=== PATIENT | male | born 1935 | race Caucasian/White ===

== ENCOUNTER 2020-11-02 09:24 | Emergency (ER) | payer MEDICARE, OTHER ==
[2020-11-02 09:53] LABS: BASOPHILS % (AUTO) 0.6 %; EOSINOPHILS # (AUTO) 0.1 10^3/uL (0.0-0.7); HCT - HEMATOCRIT 40.1 % (42.0-52.0); HGB - HEMOGLOBIN 13.2 g/dL (14.0-18.0); LYMPHOCYTES % (AUTO) 14.2 %; MEAN CORPUSCULAR HEMOGLOBIN 30.3 pg (27.0-31.0); MEAN CORPUSCULAR HGB CONC 32.9 g/dL (32.0-36.0); MEAN CORPUSCULAR VOLUME 92.2 fL (80.0-94.0); MEAN PLATELET VOLUME 10.2 fL (7.4-11.4); MONOCYTES # (AUTO) 0.6 10^3/uL (0.0-1.0); MONOCYTES % (AUTO) 9.5 %; NEUTROPHILS % (AUTO) 74.4 %; PLT - PLATELET COUNT 419 10^3/uL (130-450); RED BLOOD COUNT 4.35 10^6/uL (4.70-6.10); RED CELL DISTRIBUTION WIDTH 11.7 % (12.0-15.0); WHITE BLOOD COUNT 6.8 x10^3/uL (4.8-10.8)
--- NOTE | 2020-11-02 10:05 | XRAY Report ---
PROCEDURE: Chest 1 View X-Ray INDICATIONS: Chest pain TECHNIQUE: One view of the chest was acquired. COMPARISON: None FINDINGS: Surgical changes and devices: None. Lungs and pleura: No pleural effusions or pneumothorax. Lungs are clear. Mediastinum: Mediastinal contours appear normal. Heart size is normal. Bones and chest wall: No suspicious bony lesions. Overlying soft tissues appear unremarkable. IMPRESSION: No acute disease Reviewed by: Yomi Chadwick MD on 11/02/2020 10:04 AM PDT Approved by: Yomi Chadwick MD on 11/02/2020 10:04 AM PDT Station ID: [id number]
[2020-11-02 10:09] LABS: ALBUMIN 3.2 g/dL (3.2-5.5); ALBUMIN/GLOBULIN RATIO 0.8 (1.0-2.2); BILIRUBIN,TOTAL 0.5 mg/dL (0.2-1.0); CALCIUM 9.2 mg/dL (8.5-10.3); CREATININE 0.8 mg/dL (0.6-1.2); POTASSIUM 4.2 mmol/L (3.5-5.0); TOTAL PROTEIN 7.2 g/dL (6.7-8.2)
--- NOTE | 2020-11-02 10:31 | ED Physician Documentation ---
PD HPI NVD - Stated complaint Stated Complaint: SOA - Chief complaint Chief Complaint: Resp - History obtained from History obtained from: Patient - History of Present Illness Timing - onset: How many weeks ago (2-3) Timing - duration: Weeks (2-3) Timing - details: Gradual onset, Still present Associated symptoms: Loss of appetite. No: Fever, Abdominal pain, Dysuria, Hematuria Contributing factors: No: Sick contact, Bad food, Travel, Recent antibiotics Similar symptoms before: Has not had sx before Recently seen: Not recently seen Review of Systems Constitutional: reports: Fatigue. denies: Fever, Chills, Myalgias Nose: denies: Rhinorrhea / runny nose, Congestion Throat: denies: Sore throat Cardiac: denies: Chest pain / pressure, Palpitations, Pedal edema, Calf pain Respiratory: reports: Dyspnea (with activity, now with just little exertion.). denies: Cough, Wheezing GI: reports: Nausea (with decreased appetite). denies: Abdominal Pain, Vomiting, Diarrhea Skin: denies: Rash, Lesions Neurologic: denies: Headache, Head injury PD PAST MEDICAL HISTORY - Past Medical History Cardiovascular: None Respiratory: None Endocrine/Autoimmune: None GI: None : Benign prostate hypertrophy HEENT: None Psych: None Musculoskeletal: None Derm: None - Past Surgical History HEENT: Other - Present Medications Home Medications: Ambulatory Orders Medication Instructions Recorded Confirmed Albuterol Sulf [Ventolin Hfa 2 puffs INH QID 10 Days #1 inhaler 11/02/20 Inhaler] Cetirizine [ZyrTEC] 10 mg PO DAILY #15 tablet 11/02/20 Doxazosin Mesylate [Cardura Xl] 1 tab DAILY 11/02/20 11/02/20 dexAMETHasone [Decadron] 4 mg PO DAILY #7 tablet 11/02/20 - Allergies Allergies/Adverse Reactions: Allergies Allergy/AdvReac Type Severity Reaction Status Date / Time No Known Drug Allergies Allergy Verified 11/02/20 09:32 PD ED PE NORMAL - Vitals Vital signs reviewed: Yes - General General: Alert and oriented X 3, Well developed/nourished - HEENT HEENT: Moist mucous membranes, Pharynx benign - Neck Neck: Supple, no meningeal sign, No adenopathy - Cardiac Cardiac: RRR, No murmur - Respiratory Respiratory: No respiratory distress, Clear bilaterally - Abdomen Abdomen: Normal bowel sounds, Soft, Non distended, No organomegaly, Other (minimal tenderness RUQ without guarding. ) - Male Male : Deferred - Rectal Rectal: Deferred - Back Back: No CVA TTP - Derm Derm: Normal color, Warm and dry - Extremities Extremities: No tenderness to palpate, Normal ROM s pain, No edema, No calf tenderness / cord - Neuro Neuro: Alert and oriented X 3, No motor deficit, Normal speech Results - Vitals Vitals: Oxygen O2 Source Room air - Labs Labs: Laboratory Tests 11/02/20 11/02/20 11/02/20 09:45 09:45 09:45 WBC 6.8 RBC 4.35 L Hgb 13.2 L Hct 40.1 L MCV 92.2 MCH 30.3 MCHC 32.9 RDW 11.7 L Plt Count 419 MPV 10.2 Neut # (Auto) 5.0 Lymph # (Auto) 1.0 L [place] # (Auto) 0.6 Eos # (Auto) 0.1 Baso # (Auto) 0.0 Absolute Nucleated RBC 0.00 Nucleated RBC % 0.0 Sodium 140 Potassium 4.2 Chloride 103 Carbon Dioxide 29 Anion Gap 8.0 BUN 15 Creatinine 0.8 Estimated GFR (MDRD) 93 Glucose 151 H Calcium 9.2 Total Bilirubin 0.5 AST 21 ALT 26 Alkaline Phosphatase 130 H Troponin I High Sens 4.3 B-Natriuretic Peptide Total Protein 7.2 Albumin 3.2 Globulin 4.0 Albumin/Globulin Ratio 0.8 L Lipase 18 L TSH 11/02/20 11/02/20 09:45 09:45 WBC RBC Hgb Hct MCV MCH MCHC RDW Plt Count MPV Neut # (Auto) Lymph # (Auto) [place] # (Auto) Eos # (Auto) Baso # (Auto) Absolute Nucleated RBC Nucleated RBC % Sodium Potassium Chloride Carbon Dioxide Anion Gap BUN Creatinine Estimated GFR (MDRD) Glucose Calcium Total Bilirubin AST ALT Alkaline Phosphatase Troponin I High Sens B-Natriuretic Peptide 39 Total Protein Albumin Globulin Albumin/Globulin Ratio Lipase TSH 1.74 - Rads (name of study) chest xray Radiology: Prelim report reviewed (no acute process), See rad report chest CT Radiology: Prelim report reviewed (lungs are clear. gallstones noted. recommend URQ U/S), See rad report RUQ U/S Radiology: Prelim report reviewed (gallstones with surrounding mild fluid. Wall not thickened. ), See rad report PD MEDICAL DECISION MAKING - ED course Complexity details: reviewed results (CXR clear but given his SUE and weight loss, consider chest CT for concern of more occult process. CT chest is okay though for lungs, but shows GB stones and fluid. ), considered differential (his nausea, decreased appetite, weight loss could be attributed to the gallstones and gallbladder inflammation. Not sure to connect the SUE to that though. F/U PMD for further eval. Consider ECHO perhaps. More likely is reactive ariways, so will try inhaler and steroids. ), d/w patient Departure - Departure Disposition: 01 Home, Self Care Clinical Impression: Dyspnea on exertion, Loss of appetite, Weight loss, Gallstones Condition: Stable Record reviewed to determine appropriate education?: Yes Instructions: Gallstones Dc, ED Reactive Airway Disease Follow-Up: Jeremias Barrientos MD [Primary Care Provider] - Danica Cano MD [Provider Admit Priv/Credential] - Prescriptions: dexAMETHasone [Decadron] 4 mg PO DAILY #7 tablet Albuterol Sulf [Ventolin Hfa Inhaler] 2 puffs INH QID 10 Days #1 inhaler Cetirizine [ZyrTEC] 10 mg PO DAILY #15 tablet Comments: Stay well-hydrated. Nonfatty foods to decrease gallbladder stimulation. Your CT and ultrasound do show some gallstones with minimal gallbladder wall thickening suggesting some inflammation of it. It does not seem acutely "hot" or infected. This may be given you some of the decreased appetite and weight loss symptoms you have had. However it would not really explain the shortness of breath with activity. Your EKG and blood tests and CT of the chest did not show any acute heart or lung problems obvious. I presume you may be having some bronchial inflammation related to allergies we will try an inhaler as well as a steroid anti-inflammatory and some allergy medicine and see how your breathing does over the next several days to week. Follow-up with Dr. Portillo your primary care, call for an appointment. Also follow-up with general surgery regarding further discussion about the gallbladder. Return if worsening symptoms overall. Transmitted to your prescription medicines to [facility] pharmacy. Discharge Date/Time: 11/02/20 14:20
[2020-11-02] MEDS ORDERED: ALBUTEROL NEB 2.5 MG/3 ML INH STA (10:51)
[2020-11-02] MEDS ORDERED: IOPAMIDOL-300 100 ML VIAL ONE (11:18)
--- NOTE | 2020-11-02 12:15 | CT Report ---
PROCEDURE: CHEST W INDICATIONS: SUE for 6 weeks CONTRAST: IV CONTRAST: Isovue 300 ml: 100 PO CONTRAST: *NO PO CONTRAST TECHNIQUE: After the administration of intravenous contrast, 5 mm thick sections acquired from the pulmonary api kaylan to the posterior costophrenic angles. 7 mm thick coronal MIP reformats were acquired. For radia tion dose reduction, the following was used: automated exposure control, adjustment of mA and/or kV according to patient size. COMPARISON: None. FINDINGS: Image quality: Excellent. Lungs and pleura: No acute air space opacities. No pleural effusions or pneumothorax. Central and peripheral airways are patent and normal in caliber. Mediastinum: Heart size is normal. No pericardial effusion. Atherosclerotic calcifications noted in the aorta, great vessels and coronary vasculature. No mediastinal or hilar adenopathy by size crite gini. Thoracic aorta and central pulmonary arteries are normal in size. Esophagus is normal in calib er. No hiatal hernia. Bones and chest wall: No suspicious bony lesions. No vertebral body compression fractures. 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 No axillary or supraclavicular adenopathy b y size criteria. Thyroid gland contains a 1.9 cm partially calcified nodule in the right lobe. Abdomen: Multiple calcified gallstones noted. Gallbladder wall is thickened. Mild, diffuse fatty inf iltration of the liver. Hypoattenuating lesion with peripheral nodular enhancement noted in the anter ior-superior segment right lobe liver most compatible with hemangioma. Small, approximately 1.4 cm en hancing lesion noted in the anterior-inferior right lobe which may represent flash filling of a heman gioma. Upper abdominal bowel loops are normal in caliber. IMPRESSION: 1. No lung consolidation or pleural effusions. 2. Atherosclerosis including the coronary vasculature. 3. Cholelithiasis with gallbladder wall thickening concerning for cholecystitis. Recommend gallbladde r ultrasound for definitive characterization if clinically indicated. 4. Hepatic steatosis. 5. 1.9 cm partially calcified right thyroid nodule. Recommend thyroid ultrasound for definitive antione cterization when clinically feasible. Reviewed by: Catia Esparza MD, PhD on 11/02/2020 12:14 PM PDT Approved by: Catia Esparza MD, PhD on 11/02/2020 12:14 PM PDT Station ID: [id number]
[2020-11-02] MEDS ORDERED: CHERRY SYRUP 10 ML UDC PO ONE (13:46)
[2020-11-02] MEDS ORDERED: DEXAMETHASONE 10 MG/ML VIAL PO STA (13:46)
[2020-11-02] MEDS ORDERED: IOPAMIDOL-300 100 ML VIAL IVP ONE (14:09)
--- NOTE | 2020-11-02 14:21 | Ultrasound Report ---
PROCEDURE: Abdomen Limited INDICATIONS: GB wall thick/ stones seen on CT TECHNIQUE: Real-time scanning was performed of the right upper quadrant, with image documentation. COMPARISON: CT chest earlier today. FINDINGS: Liver: Liver is normal in size measuring 16.6 cm. Echotexture is within normal limits. Small echogen ic focus in the right lobe of the liver measuring 2.8 x 2.6 x 2.5 cm. This is including with the jason ngioma seen on CT. The second enhancing focus seen on CT is not definitely identified. Gallbladder: Within normal limits in size. Multiple gallstones are seen. Gallbladder wall measures 2. 2 mm. The gallbladder wall appears uniform. There is trace pericholecystic fluid. Negative sonographi c Aleman sign. Biliary ducts: Intrahepatic bile ducts are non-dilated. Extrahepatic bile duct caliber measures 4 m m. Normal is 6-7 mm or less in diameter, or 10 mm or less post-cholecystectomy. Pancreas: Visualized portions of the pancreas are sonographically normal. The tail was not well seen . Right kidney: Kidneys are normal in size and echotexture. Right kidney measures 12.4 cm long. No h ydronephrosis. IMPRESSION: 1. Findings equivocal for cholecystitis. Multiple gallstones and a trace pericholecystic fluid. [facility] er, negative sonographic Aleman sign and gallbladder wall measures within normal limits. -If indicated HIDA scan could be performed for further evaluation. 2. A echogenic lesion in the right lobe liver is in keeping with a small hemangioma. Reviewed by: Milind Calzada MD on 11/02/2020 2:20 PM PDT Approved by: Milind Calzada MD on 11/02/2020 2:20 PM PDT Station ID: [id number]
[2020-11-02 14:28] VITALS: BP 115/58
== END 2020-11-02 14:20 | disposition home or self-care (01) ==
LOC: ED 09:24
DX: R06.09 Other forms of dyspnea (principal); R63.0 Anorexia; R63.4 Abnormal weight loss; Z68.22 Body mass index [BMI] 22.0-22.9, adult; K80.20 Calculus of gallbladder without cholecystitis without obstruction; K76.0 Fatty (change of) liver, not elsewhere classified; E04.1 Nontoxic single thyroid nodule
CPT/HCPCS: 36415; 71045; 71260; 76705; 80053; 83690; 83880; 84443; 84484; 85025; 93005; 94150; 94640; 99283; 99284; A9270; Q9967

== ENCOUNTER 2022-08-01 14:03 | Inpatient (IN) | payer MEDICARE, OTHER ==
[2022-08-01] MEDS ORDERED: SODIUM CHLORIDE 0.9% 1,000 ML IV STA (14:11)
[2022-08-01] MEDS ORDERED: ONDANSETRON 4 MG/2 ML VIAL IVP STA (14:18)
[2022-08-01] MEDS ORDERED: HYDROmorphone 1 MG/ML CARPUJECT IVP STA ×2 (14:18→18:13)
[2022-08-01 14:19] LABS: BASOPHILS % (AUTO) 0.3 %; EOSINOPHILS % (AUTO) 0.1 %; HCT - HEMATOCRIT 31.1 % (42.0-52.0); HGB - HEMOGLOBIN 10.9 g/dL (14.0-18.0); LYMPHOCYTES # (AUTO) 0.9 10^3/uL (1.5-3.5); LYMPHOCYTES % (AUTO) 6.8 %; MEAN CORPUSCULAR HEMOGLOBIN 31.4 pg (27.0-31.0); MEAN CORPUSCULAR VOLUME 89.6 fL (80.0-94.0); MEAN PLATELET VOLUME 10.4 fL (7.4-11.4); MONOCYTES # (AUTO) 1.2 10^3/uL (0.0-1.0); MONOCYTES % (AUTO) 9.8 %; NEUTROPHILS # (AUTO) 10.4 10^3/uL (1.5-6.6); NEUTROPHILS % (AUTO) 82.5 %; PLT - PLATELET COUNT 211 10^3/uL (130-450); RED BLOOD COUNT 3.47 10^6/uL (4.70-6.10); RED CELL DISTRIBUTION WIDTH 11.7 % (12.0-15.0); WHITE BLOOD COUNT 12.6 x10^3/uL (4.8-10.8)
--- NOTE | 2022-08-01 14:22 | ED Physician Documentation ---
History of Present Illness - Stated complaint Stated Complaint: CODE STROKE - History obtained from History obtained from: EMS - Additonal information Additional information: The patient brought to the emergency department by EMS for chief complaint of altered mental status. He is recently postop after a right total hip arthroplasty, and was noted to be unresponsive this morning Around noon. The patient had a similar episode yesterday evening at 2300 and was subsequently put to bed. By the time he woke up this morning, he was acting normally. The patient has not been on any narcotic pain medications. He actually is on minimal meds and is normally very healthy, regularly working out and playing golf. He has not had any fevers or other signs of illness per family. Patient is not able to offer any information. The medics state that he was combative and nonfocal and that after fighting to keep him in the stretcher for some time the family gave him Versed in route. The patient was not able to really verbalize, but did not have any specific deficits otherwise. He has seemed delirious and is not tracking. Review of Systems Unable to obtain: Unresponsive PD PAST MEDICAL HISTORY - Past Medical History Cardiovascular: None Respiratory: None Endocrine/Autoimmune: None GI: None : Benign prostate hypertrophy HEENT: None Psych: None Musculoskeletal: None Derm: None - Past Surgical History Past Surgical History: Yes Ortho: Shoulder arthroplasty, Other HEENT: Other - Present Medications Home Medications: Ambulatory Orders Medication Instructions Recorded Confirmed Albuterol Sulf [Ventolin Hfa 2 puffs INH QID 10 Days #1 inhaler 11/02/20 Inhaler] Cetirizine [ZyrTEC] 10 mg PO DAILY #15 tablet 11/02/20 Doxazosin Mesylate [Cardura Xl] 1 tab DAILY 11/02/20 11/02/20 dexAMETHasone [Decadron] 4 mg PO DAILY #7 tablet 11/02/20 - Allergies Allergies/Adverse Reactions: Allergies Allergy/AdvReac Type Severity Reaction Status Date / Time No Known Drug Allergies Allergy Verified 08/01/22 15:11 - Social History Does the pt smoke?: No Smoking Status: Former smoker Does the pt drink ETOH?: Yes Does the pt have substance abuse?: No PD ED PE NORMAL - Vitals Vital signs reviewed: Yes - General General: Well developed/nourished, Other (The patient appears delirious, with eyes open but somewhat drowsy and confused. He makes unintelligible grunts and is agitated.) - HEENT HEENT: Atraumatic, PERRL, Moist mucous membranes - Neck Neck: Supple, no meningeal sign - Cardiac Cardiac: RRR, No murmur, Strong equal pulses - Respiratory Respiratory: No respiratory distress, Clear bilaterally - Abdomen Abdomen: Soft, Non tender, Non distended - Derm Derm: Normal color, Warm and dry, No rash - Extremities Extremities: No deformity, No edema - Neuro Neuro: Other (The patient is awake, but does not make eye contact or track. He does open his eyes when his name is said. He is very fidgety, and constantly shifting position. He moves all 4 extremities and has 5+ and equal strength in all 4 extremities. No facial droop) - Psych Psych: Normal mood, Normal affect Results - Vitals Vitals: Vital Signs - 24 hr 08/01/22 08/01/22 08/01/22 14:05 15:05 15:30 Temperature 37.6 C 36.5 C Heart Rate 94 100 80 Respiratory 18 21 24 Rate Blood Pressure 141/59 H 141/59 H 130/59 L O2 Saturation 98 99 97 08/01/22 08/01/22 08/01/22 15:35 16:05 16:30 Temperature 36.5 C Heart Rate 98 96 102 H Respiratory 18 18 18 Rate Blood Pressure 130/59 L 116/56 L O2 Saturation 98 98 94 08/01/22 08/01/22 08/01/22 17:00 17:30 18:03 Temperature Heart Rate 98 100 96 Respiratory 16 21 18 Rate Blood Pressure 117/44 L 111/71 134/64 H O2 Saturation 100 100 98 Oxygen O2 Source Room air - Labs Labs: Laboratory Tests 08/01/22 08/01/22 08/01/22 14:16 14:16 14:16 WBC 12.6 H RBC 3.47 L Hgb 10.9 L Hct 31.1 L MCV 89.6 MCH 31.4 H MCHC 35.0 RDW 11.7 L Plt Count 211 MPV 10.4 Neut # (Auto) 10.4 H Lymph # (Auto) 0.9 L [place] # (Auto) 1.2 H Eos # (Auto) 0.0 Baso # (Auto) 0.0 Absolute Nucleated RBC 0.00 Nucleated RBC % 0.0 PT 12.5 INR 1.1 Sodium 118 L* Potassium 4.0 Chloride 82 L Carbon Dioxide 25 Anion Gap 11.0 BUN 21 H Creatinine 0.7 Estimated GFR (MDRD) 107 Glucose 126 H Lactic Acid Calcium 8.4 L Total Bilirubin 1.2 H AST 50 H ALT 35 Alkaline Phosphatase 73 Total Protein 6.1 L Albumin 3.2 Globulin 2.9 Albumin/Globulin Ratio 1.1 Lipase 23 Urine Color Urine Clarity Urine pH Ur Specific [place] Urine Protein Urine Glucose (UA) Urine Ketones Urine Occult Blood Urine Nitrite Urine Bilirubin Urine Urobilinogen Ur Leukocyte Esterase Urine RBC Urine WBC Ur Squamous Epith Cells Urine Bacteria Ur Microscopic Review Urine Culture Comments Urine Opiates Screen Ur Oxycodone Screen Urine Methadone Screen Ur Propoxyphene Screen Ur Barbiturates Screen Ur Tricyclics Screen Ur Phencyclidine Scrn Ur Amphetamine Screen U Methamphetamines Scrn U Benzodiazepines Scrn Urine Cocaine Screen U Cannabinoids Screen Ethyl Alcohol < 5.0 08/01/22 08/01/22 14:16 17:39 WBC RBC Hgb Hct MCV MCH MCHC RDW Plt Count MPV Neut # (Auto) Lymph # (Auto) [place] # (Auto) Eos # (Auto) Baso # (Auto) Absolute Nucleated RBC Nucleated RBC % PT INR Sodium Potassium Chloride Carbon Dioxide Anion Gap BUN Creatinine Estimated GFR (MDRD) Glucose Lactic Acid 2.8 H Calcium Total Bilirubin AST ALT Alkaline Phosphatase Total Protein Albumin Globulin Albumin/Globulin Ratio Lipase Urine Color STRAW Urine Clarity CLEAR Urine pH 7.0 Ur Specific [place] <=1.005 Urine Protein NEGATIVE Urine Glucose (UA) NEGATIVE Urine Ketones NEGATIVE Urine Occult Blood MODERATE H Urine Nitrite NEGATIVE Urine Bilirubin NEGATIVE Urine Urobilinogen 0.2 (NORMAL) Ur Leukocyte Esterase NEGATIVE Urine RBC 6-10 H Urine WBC 0-3 Ur Squamous Epith Cells NONE SEEN Urine Bacteria Rare Ur Microscopic Review INDICATED Urine Culture Comments NOT INDICATED Urine Opiates Screen NEGATIVE Ur Oxycodone Screen NEGATIVE Urine Methadone Screen NEGATIVE Ur Propoxyphene Screen NEGATIVE Ur Barbiturates Screen NEGATIVE Ur Tricyclics Screen NEGATIVE Ur Phencyclidine Scrn NEGATIVE Ur Amphetamine Screen NEGATIVE U Methamphetamines Scrn NEGATIVE U Benzodiazepines Scrn NEGATIVE Urine Cocaine Screen NEGATIVE U Cannabinoids Screen NEGATIVE Ethyl Alcohol PD Medical Decision Making - ED course Complexity details: reviewed old records, reviewed results, re-evaluated patient, considered differential ED course: The patient was not able to offer any information on arrival, and was clearly delirious and agitated. I did note that he was repeatedly grunting and medics had reported that he had had the hiccups since his surgery. I gave the patient doses of Dilaudid and of Zofran, and ordered a liter of normal saline as a bolus. I also ordered a CT of the head, ER abdominal panel, CBC, EtOH level, lactic acid level, and UA/urine drug screen. All of the studies above were reviewed by me as follows: Head CT unremarkable; ER abdominal panel demonstrated of significance, a sodium of 118. His electrolytes otherwise were fairly unremarkable. His renal function was normal. CBC showed a mildly elevated white blood cell count and Moderate anemia at 10.9. Alcohol level was negative. Lactic acid level was mildly elevated at 2.8. Urinalysis and urine drug screen were pending at the time of this dictation. The patient required multiple doses of sedating meds, in addition to the meds noted above, including 2 doses of Haldol 5 mg and Ativan 1 mg. He was given another dose of Dilaudid later. He was sent for CT scan of the abdomen and pelvis, which I did review, and this showed a distended stomach full of gastric contents and also, some constipation. The bladder was also full. A Parada was placed and patient put out about 900 cc of clear urine initially. NG tube was placed and the patient put out approximately a liter of brown stomach contents. No tish blood was noted. The patient was given a dose of IV Protonix. The patient's agitation level improved significantly after placement of the NG tube. I discussed the case with Dr. Benítez, who did agree to accept the patient for admission. My suspicion is that his altered mental status is due to a combination of recent general anesthesia in the setting of advanced age, lack of sleep, hyponatremia, and also, multiple doses of sedating meds at home which the family mention to us later. These have included oxycodone and Valium. The patient will be admitted as an inpatient. Departure - Departure Disposition: 66 [facility] DC/Xfer Clinical Impression: Hyponatremia Altered mental status Qualifiers: Altered mental status type: delirium Qualified Code(s): R41.0 - Disorientation, unspecified Medication adverse effect Qualifiers: Encounter type: initial encounter Qualified Code(s): T50.905A - Adverse effect of unspecified drugs, medicaments and biological substances, initial encounter Condition: Serious
[2022-08-01 14:26] LABS: INR 1.1 (0.8-1.2); PT - PROTHROMBIN TIME 12.5 secs (9.9-12.6)
[2022-08-01 14:38] LABS: ALBUMIN 3.2 g/dL (3.2-5.5); ALBUMIN/GLOBULIN RATIO 1.1 (1.0-2.2); ALKALINE PHOSPHATASE 73 IU/L (42-121); ALT ALANINE AMINOTRANSFERASE 35 IU/L (10-60); AST ASPARTATE AMINOTRANSFERASE 50 IU/L (10-42); BILIRUBIN,TOTAL 1.2 mg/dL (0.2-1.0); BUN - BLOOD UREA NITROGEN 21 mg/dL (6-20); CALCIUM 8.4 mg/dL (8.5-10.3); CARBON DIOXIDE - CO2 25 mmol/L (21-32); CHLORIDE 82 mmol/L (101-111); CREATININE 0.7 mg/dL (0.6-1.2); ETOH - ETHANOL < 5.0 mg/dL; GFR - MDRD 107 (>89); GLUCOSE 126 mg/dL (70-100); LIPASE 23 U/L (22-51); TOTAL PROTEIN 6.1 g/dL (6.7-8.2)
[2022-08-01 14:39] LABS: SODIUM 118 mmol/L (135-145)
[2022-08-01] MEDS ORDERED: LORazepam 2 MG/ML VIAL IVP STA ×2 (14:59→15:45)
[2022-08-01] MEDS ORDERED: HALOPERIDOL 5 MG/ML VIAL IVP STA ×2 (14:59→15:45)
[2022-08-01] MEDS ORDERED: iohexoL-300 100 ML VIAL ONE (15:54)
--- NOTE | 2022-08-01 16:28 | CT Report ---
PROCEDURE: HEAD WO INDICATIONS: aloc TECHNIQUE: Noncontrast 4.5 mm thick angled axial sections acquired from the foramen magnum to the vertex. For r adiation dose reduction, the following was used: automated exposure control, adjustment of mA and/or kV according to patient size. COMPARISON: None. FINDINGS: No acute intracranial hemorrhage, abnormal extra-axial fluid collection, mass effect, or midline shif t. The ventricular system and basilar cisterns are patent. Mild global cerebral volume loss and chron ic microvascular ischemic changes. Fenton-white matter differentiation is maintained without CT evidenc e of an acute large territory infarct. No significant osseous abnormality. Orbital structures within normal limits. Partially visualized paranasal sinuses and mastoid air cells clear. IMPRESSION: No acute finding. Reviewed by: Jeremy Miller MD on 08/01/2022 4:27 PM PST Approved by: Jeremy Miller MD on 08/01/2022 4:27 PM PST Station ID: [id number]
--- NOTE | 2022-08-01 16:34 | CT Report ---
PROCEDURE: ABDOMEN/PELVIS W INDICATIONS: abdominal distention CONTRAST: 100ml omnipaque 300 TECHNIQUE: After the administration of intravenous contrast, 5 mm thick sections acquired from the diaphragms t o the symphysis. 5 mm thick coronal and sagittal reformats were acquired. For radiation dose reduct ion, the following was used: automated exposure control, adjustment of mA and/or kV according to pat ient size. COMPARISON: None. FINDINGS: Image quality: There is some patient motion artifact. ABDOMEN: Lung bases: Minimal bibasilar atelectatic changes and minimal pleural thickening. Mild cardiomegaly. At least moderate coronary artery calcifications. Solid organs: Liver and spleen are normal in size and enhancement. A low-density lesion near the do me of the liver in the right lobe likely represents a small hemangioma. Gallbladder contains calcifie d gallstones. There is gallbladder wall thickening. Biliary system is non dilated. Pancreas enhance s normally. No adrenal nodules. Kidneys demonstrate normal size and enhancement, without hydronephr osis. Peritoneum and bowel: Distal esophagus has wall thickening. This fluid-containing. Stomach is distend ed and filled with fluid. There is extensive colonic diverticulosis without evidence of diverticuliti s. There is no dilatation of colonic or small bowel loops. There is moderately large fecal debris. Nodes and vessels: No retroperitoneal or mesenteric adenopathy by size criteria. Aorta and inferior vena cava are normal in size. Miscellaneous: No ventral hernias. PELVIS: Genitourinary: Bladder wall thickness is normal. Miscellaneous: No inguinal hernias or adenopathy. Changes in the anterior proximal right hip muscul ature related to total right hip arthroplasty 2 days ago. Bones: No suspicious bony lesions. No vertebral body compression fractures. Very recent total righ t hip arthroplasty. IMPRESSION: 1. The stomach is distended and filled with fluid. 2. Distal esophageal wall thickening. Consider esophagitis. 3. Recent total hip arthroplasty. 4. Extensive diverticulosis without evidence of diverticulitis. 5. Moderately large fecal debris, suggesting possible constipation. 6. Cholelithiasis and possible chronic cholecystitis. 7. Cardiomegaly, at least moderate coronary artery calcifications. Reviewed by: Oniel Neal MD on 08/01/2022 4:33 PM PST Approved by: Oniel Neal MD on 08/01/2022 4:33 PM PST Station ID: [id number]
[2022-08-01] MEDS ORDERED: iohexoL-300 100 ML VIAL IVP ONE (16:37)
[2022-08-01] MEDS ORDERED: PANTOPRAZOLE 40 MG VIAL IVP STA (17:45)
[2022-08-01 17:48] LABS: MUDS CUTOFF CONCENTRATIONS CUTOFF CONC BELOW:
[2022-08-01 17:49] LABS: BILIRUBIN,URINE NEGATIVE (NEGATIVE); GLUCOSE, URINE (UA) NEGATIVE (NEGATIVE); KETONES,URINE (UA) NEGATIVE (NEGATIVE); LEUKOCYTE ESTERASE, URINE NEGATIVE (NEGATIVE); NITRITE,URINE NEGATIVE (NEGATIVE); OCCULT BLOOD,URINE MODERATE (NEGATIVE); PROTEIN,URINE NEGATIVE (NEGATIVE); UROBILINOGEN,URINE 0.2 (NORMAL) E.U./dL (NORMAL)
[2022-08-01 18:02] LABS: CLARITY,URINE CLEAR (CLEAR)
[2022-08-01 18:03] LABS: AMPHETAMINE SCREEN,URINE NEGATIVE (NEGATIVE); BACTERIA,URINE Rare /HPF (None Seen); BARBITURATE SCREEN,UR NEGATIVE (NEGATIVE); BENZODIAZEPINES SCREEN, URINE NEGATIVE (NEGATIVE); COCAINE SCREEN URINE NEGATIVE (NEGATIVE); METHADONE SCREEN, URINE NEGATIVE (NEGATIVE); METHAMPHETAMINES SCREEN, URINE NEGATIVE (NEGATIVE); OPIATE SCREEN, URINE NEGATIVE (NEGATIVE); OXYCODONE SCREEN, URINE NEGATIVE (NEGATIVE); PROPOXYPHENE SCREEN, URINE NEGATIVE (NEGATIVE); SQUAMOUS EPITHELIAL CELL,UR NONE SEEN (<= Few); THC CANNABINOID SCREEN, URINE NEGATIVE (NEGATIVE); TRICYCLIC ANTIDEPRESSANT,URINE NEGATIVE (NEGATIVE); WBC,URINE 0-3 /HPF (0-3)
--- NOTE | 2022-08-01 18:30 | HISTORY & PHYSICAL EXAMINATION ---
Chief Complaint - Chief Complaint Chief Complaint: AMS History of Present Illness - Admitted From Admitted From:: ED - History Obtained From History obtained from: ED provider and chart review - History of Present Illness HPI Comment/Other: This is an 86-year-old white male who, by report from family is healthy, active, plays golf twice a week. Patient recently underwent hip replacement several days ago which was successful. Since having general anesthesia he has been having alot of hiccups and family reports he is drinking a lot of water. The patient was also taking oxycodone post-op. After the surgery, family noticed is was more confused as well. He complained of not being able to sleep and found 2 tablets of Valium at home, unknown strength, which he took to sleep last night. He awoke this a.m. and was more normal, then again became confused today and family called 911. EMS reported that he was combative and they tried to talk him down but eventually needed to give him Versed en route. Upon arrival to the ER he was delirious and combative. He needed treatment with Haldol and benzodiazepines. He underwent work-up in the ED that included a head CT that showed no acute findings. Labs showed a Lactic Acid of 2.8, normal electrolytes and BUN and creatinine. Mildly elevated white count of 12.6, Hgb of 10.9, AST/ALT 50/35 with normal plts and INR. He had grunting vs hiccups and seemed uncomfortable, thus he underwent abdomen/pelvis CT. The findings were: constipation, diverticulosis without diverticulitis, distended bladder and very distended stomach full of fluid. He had a Parada inserted and 1L was drained. He had an ng tube inserted and stomach was drained, coffee grounds were seen. He became more comfortable. He is now somnolent because of the sedatives that needed to be given for his combativeness. Four-point, non-violent, soft, extremi ty restraints have been ordered, to protect the equipment. ED provider reached out to me on the Hospitalist team and we discussed a plan of management for him going forward. He will be admitted to inpatient status for delirium, probably from metabolic encephalopathy caused by hyponatremia after recent general anesthesia, slow to clear in an octogenarian. Also, he appears to have an upper GI bleed (possibly a stress ulcer), constipation and acute urinary retention. He will be admitted to the ICU. History - Past Medical History Cardiovascular: reports: None Respiratory: reports: None Endocrine/Autoimmune: reports: None GI: reports: None : reports: Benign prostate hypertrophy HEENT: reports: None Psych: reports: None Musculoskeletal: reports: None Derm: reports: None MRSA Hx?: No - Past Surgical History Ortho: reports: Shoulder arthroplasty, Other (hip surg recently) HEENT: reports: Other - Family & Social History Family History Comment/Other: Unable to obtain due to sedation Living arrangement: At home Living Situation: With spouse/s.o. Social History Notes: Unable to obtain Hx due to sedation. Old records show that he is now an ex-smoker. His alcohol intake is not known. Meds/Allgy - Home Medications Home Medications: Ambulatory Orders Medication Instructions Recorded Confirmed Albuterol Sulf [Ventolin Hfa 2 puffs INH QID 10 Days #1 inhaler 11/02/20 Inhaler] Cetirizine [ZyrTEC] 10 mg PO DAILY #15 tablet 11/02/20 Doxazosin Mesylate [Cardura Xl] 1 tab DAILY 11/02/20 11/02/20 dexAMETHasone [Decadron] 4 mg PO DAILY #7 tablet 11/02/20 - Allergies Allergies/Adverse Reactions: Allergies Allergy/AdvReac Type Severity Reaction Status Date / Time No Known Drug Allergies Allergy Verified 08/01/22 15:11 Review of Systems - All Other Systems All Other Systems: reports: Other (Unable to obtain due to sedation) Exam - Vital Signs Vital Signs: Vital Signs x48h Temp Pulse Resp BP Pulse Ox 08/01/22 18:03 96 18 134/64 H 98 08/01/22 17:30 100 21 111/71 100 08/01/22 17:00 98 16 117/44 L 100 08/01/22 16:30 102 H 18 94 08/01/22 16:05 36.5 C 96 18 116/56 L 98 08/01/22 15:35 98 18 130/59 L 98 08/01/22 15:30 80 24 130/59 L 97 08/01/22 15:05 36.5 C 100 21 141/59 H 99 08/01/22 14:05 37.6 C 94 18 141/59 H 98 - Physical Exam General Appearance: positive: Other (sedated, has ng tube in place) Eyes Bilateral: positive: No lid inflammation ENT: positive: No signs of dehydration, Other (ng tube in place) Neck: positive: Nml inspection Respiratory: positive: No respiratory distress, Rhonchi Cardiovascular: positive: Regular rate & rhythm (heart sounds not audible due to rhonchi) Abdomen: positive: No distention, Other (ng tube currently draining bilious green liquid) Skin: positive: Warm, Dry, Pallor Extremities: positive: Other (R hip has dry bandage over surgical site) Neurologic/Psychiatric: positive: Other (winces to sternal rub) Conclusion/Plan - Problem List (1) Altered mental status Conclusion/Plan: Likely this is multifactorial: From his acute hyponatremia, from having recent general anesthesia that is slow to clear in an octogenarian, from being on narcotics postop and taking recent benzodiazepines. In addition, he may have been uncomfortable from constipation, gastric distention, hiccups, and urinary distention. Also, because he has a mild AST/ALT elevation and alcohol intake Hx is unknown, and since he is 48 hours from possibly his last alcohol intake before the hip surgery, he may be going through alcohol withdrawal. Plan: Will admit to the ICU. Continue with non-violent restraints to prevent removal of NG tube, Parada, IV lines. Continue to treat each of the problems individually as described below. We will order CIWA protocol with low-dose IV Ativan if needed for withdrawal symptoms Qualifiers: Altered mental status type: delirium Qualified Code(s): R41.0 - Disorientation, unspecified (2) Hyponatremia Conclusion/Plan: This is very likely a contributing cause to his altered mental status. Plan: Will order free water intake restriction although he is currently sedated and not able to drink or take a diet Will order NS IV hydration, with a goal of not correcting his sodium more than 6 to 8 mEq every 8 hours. Follow serum sodium every 6 hours. (3) Medication adverse effect Conclusion/Plan: Likely the combination of general anesthesia, narcotics and benzodiazepines in an octogenarian is having an adverse effect Plan: We will not be ordering any narcotics. Will allow washout of the general anesthetic and narcotics Unfortunately we do have to order some benzodiazepines to use if he becomes combative Qualifiers: Encounter type: initial encounter Qualified Code(s): T50.905A - Adverse effect of unspecified drugs, medicaments and biological substances, initial encounter (4) Coffee ground emesis Conclusion/Plan: Very likely this is stress ulcer from his recent events Plan: We will begin IV twice daily Protonix Follow hemoglobin daily Continue NG tube drainage for comfort Diet will currently be n.p.o. DVT prophylaxis will be with SCDs, not Lovenox (5) Acute urinary retention Conclusion/Plan: Patient has a history of BPH and is on meds for this. Plan: Continue with Parada for bladder drainage currently When he awakens, will restart his p.o. prostate meds (6) Elevated lactic acid level Conclusion/Plan: With no other signs of infection, UA unremarkable white count, surgical site appears clean, no fever, no hypoxia, this is likely demargination from the stress of his recent events Plan: Will obtain a chest x-ray to rule out a pulmonary source of infection, given the recent hiccups and coffee grounds, possible aspiration Continue IV NS for fluids for hydration Follow lactic acid level to assure it is improving (7) Aspiration pneumonia Conclusion/Plan: Chest x-ray done for NG tube placement was read as having a retrocardiac infiltrate. I am therefore concerned that he had aspiration pneumonia given his obtunded condition and the hiccups and the coffee-ground emesis Plan: Will begin IV amp/sulbactam and IV Flagyl We get blood cx x2 and will try to obtain a sputum culture before antibiotica are started Will start Florastor when he can take oral meds - Lab Results Fish Bones: 08/02/22 05:15 08/02/22 05:15 - Diagnostic Imaging Results Diagnostic Imaging Results: positive: Final report reviewed - Other Other Results/Comments: Attestation: The patient is expected to be discharged or transferred to another facility within 96 hours: Yes.
[2022-08-01 18:33] LABS: BASOPHILS % (AUTO) 0.4 %; EOSINOPHILS % (AUTO) 0.4 %; HCT - HEMATOCRIT 30.6 % (42.0-52.0); HGB - HEMOGLOBIN 10.8 g/dL (14.0-18.0); LYMPHOCYTES % (AUTO) 9.8 %; MEAN CORPUSCULAR HEMOGLOBIN 31.3 pg (27.0-31.0); MEAN CORPUSCULAR HGB CONC 35.3 g/dL (32.0-36.0); MEAN CORPUSCULAR VOLUME 88.7 fL (80.0-94.0); MEAN PLATELET VOLUME 10.8 fL (7.4-11.4); MONOCYTES # (AUTO) 0.7 10^3/uL (0.0-1.0); MONOCYTES % (AUTO) 7.1 %; PLT - PLATELET COUNT 218 10^3/uL (130-450); RED BLOOD COUNT 3.45 10^6/uL (4.70-6.10); RED CELL DISTRIBUTION WIDTH 11.7 % (12.0-15.0); WHITE BLOOD COUNT 9.8 x10^3/uL (4.8-10.8)
--- OUTSIDE RECORDS SUMMARY | 2022-08-01 18:38 | EXTERNAL MEDICAL SUMMARY RPT | Continuity of Care Document ---
:1935 Author Organization [facility] Address [address] [place] [address] Phone Care Team Providers Name Role Phone Unavailable Unavailable Unavailable Jeremias Barrientos Unavailable Unavailable Allergies and Intolerances date description facility type (no date) No Known Drug Allergies [facility] (unkn own) Encounters No information. Functional Status No information. Immunizations No information. Medications date description facility 2022-07-24 00:00 Ipratropium [facility] 2022-07-24 00:00 Doxazosin [facility] 2022-07-24 00:00 Acetaminophen [facility] Problems date description facility 2022-07-10 09:41 Urinary tract infection, site not [facility] 2022-07-10 09:41 Hyperglycemia, unspecified [facility] 2022-07-10 09:41 Encounter for preprocedural [facility] examination 2022-07-10 09:41 Encounter for other preprocedural [facility] 2022-07-10 09:43 Urinary tract infection, site not [facility] 2022-07-10 09:43 Hyperglycemia, unspecified [facility] 2022-07-10 09:43 [facility] 2022-07-10 09:43 [facility] 2022-07-10 13:47 Urinary tract infection, site not [facility] 2022-07-10 13:47 Hyperglycemia, unspecified [facility] 2022-07-10 13:47 Encounter for preprocedural [facility] examination 2022-07-10 13:47 [facility] 2022-07-30 06:11 Unilateral primary osteoarthritis, [facility] 2022-07-30 06:54 Unilateral primary osteoarthritis, [facility] 2022-07-30 14:57 Unilateral primary osteoarthritis, [facility] 2022-07-30 16:36 Unilateral primary osteoarthritis, [facility] 2022-07-30 16:53 Unilateral primary osteoarthritis, [facility] 2022-07-30 17:04 Unilateral primary osteoarthritis, [facility] Procedures date description facility 2022-07-30 00:00 Total Hip Arthroplasty/Anterior [facility] (Right) 2022-07-30 00:00 Unilateral x-ray of hip, two views, [facility] x-ray [facility] of pelvis Results/Labs test date author facility value unit interpret ation Result panel 1 (unknown) (no date) [facility] Result panel 2 (unknown) (no date) (unknown[facility]) Result panel 3 (unknown) (no date) (unknown[facility]) Result panel 4 (unknown) (no date) (unknown[facility]) Result panel 5 (unknown) (no date) (unknown[facility]) Result panel 6 (unknown) (no date) (unknown[facility]) Result panel 7 (unknown) (no date) (unknown[facility]) Result panel 8 (unknown) (no date) (unknown[facility]) Result panel 9 (unknown) (no date) (unknown[facility]) Result panel 10 (unknown) (no date) (unknown[facility]) Result panel 11 (unknown) (no date) (unknown[facility]) Result panel 12 (unknown) (no date) (unknown[facility]) Result panel 13 (unknown) (no date) (unknown[facility]) Result panel 14 (unknown) (no date) (unknown[facility]) Result panel 15 (unknown) (no date) (unknown[facility]) Result panel 16 (unknown) (no date) (unknown[facility]) Result panel 17 (unknown) (no date) (unknown[facility]) Result panel 18 (unknown) (no date) (unknown[facility]) Result panel 19 (unknown) (no date) (unknown[facility]) Result panel 20 (unknown) (no date) (unknown[facility]) Result panel 21 (unknown) (no date) (unknown[facility]) Result panel 22 (unknown) (no date) (unknown[facility]) Result panel 23 (unknown) (no date) (unknown[facility]) Result panel 24 (unknown) (no date) (unknown[facility]) Result panel 25 (unknown) (no date) (unknown[facility]) Result panel 26 (unknown) (no date) (unknown[facility]) Result panel 27 (unknown) (no date) (unknown[facility]) Result panel 28 (unknown) (no date) (unknown[facility]) Result panel 29 (unknown) (no date) (unknown[facility] Result panel 30 (unknown) (no date) (unknown) (unknown) 5.5 % (unkn own) (unknown) (no date) (unknown) (unknown) 5.5 % (unkn own) Result panel 31 (unknown) (no date) (unknown) (unknown) 0 /ul (unkn own) (unknown) (no date) (unknown) (unknown) 0.7 % (unkn own) (unknown) (no date) (unknown) (unknown) 1.6 % (unkn own) (unknown) (no date) (unknown) (unknown) 100 /ul (unkn own) (unknown) (no date) (unknown) (unknown) 12.9 % (unkn own) (unknown) (no date) (unknown) (unknown) 14.4 g/dl (unkn own) (unknown) (no date) (unknown) (unknown) 1500 /ul (unkn own) (unknown) (no date) (unknown) (unknown) 26.5 % (unkn own) (unknown) (no date) (unknown) (unknown) 294 x10 3/ul (unkn own) (unknown) (no date) (unknown) (unknown) 31.2 pg (unkn own) (unknown) (no date) (unknown) (unknown) 33.4 % (unkn own) (unknown) (no date) (unknown) (unknown) 3600 /ul (unkn own) (unknown) (no date) (unknown) (unknown) 4.60 x10 6/ul (unkn own) (unknown) (no date) (unknown) (unknown) 43.0 % (unkn own) (unknown) (no date) (unknown) (unknown) 5.7 x10 3/ul (unkn own) (unknown) (no date) (unknown) (unknown) 500 /ul (unkn own) (unknown) (no date) (unknown) (unknown) 62.8 % (unkn own) (unknown) (no date) (unknown) (unknown) 8.4 % (unkn own) (unknown) (no date) (unknown) (unknown) 93.4 fl (unkn own) Result panel 32 (unknown) (no date) (unknown) (unknown) > 60 ml/min (unkn own) (unknown) (no date) (unknown) (unknown) > 60 ml/min (unkn own) (unknown) (no date) (unknown) (unknown) 0.84 mg/dl (unkn own) (unknown) (no date) (unknown) (unknown) 103 mmol/l (unkn own) (unknown) (no date) (unknown) (unknown) 142 mmol/l (unkn own) (unknown) (no date) (unknown) (unknown) 20 mg/dl (unkn own) (unknown) (no date) (unknown) (unknown) 23.8 (units unknown) (unknown) (unknown) (no date) (unknown) (unknown) 29 mmol/l (unkn own) (unknown) (no date) (unknown) (unknown) 4.1 mmol/l (unkn own) (unknown) (no date) (unknown) (unknown) 9.0 mg/dl (unkn own) (unknown) (no date) (unknown) (unknown) 93 mg/dl (unkn own) (unknown) (no date) (unknown) (unknown) 93 mg/dl (unkn own) Result panel 33 (unknown) (no date) (unknown) (unknown) 0.2 e.u./dl (unkn own) (unknown) (no date) (unknown) (unknown) 1.025 (units (unkn own) unknown) (unknown) (no date) (unknown) (unknown) 5.0 (units (unkn own) unknown) (unknown) (no date) (unknown) (unknown) CLEAR (units (unkn own) unknown) (unknown) (no date) (unknown) (unknown) NEGATIVE (units (unkn own) unknown) (unknown) (no date) (unknown) (unknown) NEGATIVE g/dl (unkn own) (unknown) (no date) (unknown) (unknown) TRACE-LYSED (units (u nknown) unknown) (unknown) (no date) (unknown) (unknown) YELLOW (units (unkn own) unknown) (unknown) (no date) (unknown) (unknown) YELLOW (units (unkn own) unknown) Result panel 34 (unknown) (no date) (unknown) (unknown) 0.2 e.u./dl (unkn own) (unknown) (no date) (unknown) (unknown) 1.025 (units (unkn own) unknown) (unknown) (no date) (unknown) (unknown) 2 (units (unkn own) unknown) (unknown) (no date) (unknown) (unknown) 5.0 (units (unkn own) unknown) (unknown) (no date) (unknown) (unknown) CLEAR (units (unkn own) unknown) (unknown) (no date) (unknown) (unknown) Cult Not (units (unkn own) Indicated unknown) (unknown) (no date) (unknown) (unknown) NEGATIVE (units (unkn own) unknown) (unknown) (no date) (unknown) (unknown) NEGATIVE g/dl (unkn own) (unknown) (no date) (unknown) (unknown) None Seen (units (unk nown) unknown) (unknown) (no date) (unknown) (unknown) None Seen (units (unk nown) unknown) (unknown) (no date) (unknown) (unknown) TRACE-LYSED (units (u nknown) unknown) (unknown) (no date) (unknown) (unknown) YELLOW (units (unkn own) unknown) (unknown) (no date) (unknown) (unknown) YELLOW (units (unkn own) unknown) Result panel 35 (unknown) (no date) (unknown) (unknown) Negative (units (unkn own) unknown) (unknown) (no date) (unknown) (unknown) Negative (units (unkn own) unknown) Result panel 36 (unknown) (no (unknown) (unknown) (no value) (units (unk nown) date) unknown) (unknown) (no (unknown) (unknown) 07/30/22 (units (unkno wn) date) unknown) (unknown) (no (unknown) (unknown) [address] [place] [address] (units (unknown) date) unknown) (unknown) (no (unknown) (unknown) Accession (units (unkn own) date) Number: unknown) [id number] (unknown) (no (unknown) (unknown) Age/Sex: 86 / M (units (unknown) date) Date of Service: unknown) (unknown) (no (unknown) (unknown) [place], [place] (units ( unknown) date) [id number] unknown) (unknown) (no (unknown) (unknown) Approved by: (units (u nknown) date) Daniela Barnett, unknown) Robinson on 07/30/2022 at 16:27 (unknown) (no (unknown) (unknown) COMPARISON: (units (un known) date) [facility], unknown) CR, XR HIP W PEL IF DONE RT 2V, 01/30/2022, 14:03. (unknown) (no (unknown) (unknown) : 1935 (units (unknown) date) Acct:[id number] unknown) (unknown) (no (unknown) (unknown) Dictated by: (units (u nknown) date) Daniela Barnett, unknown) Robinson on 07/30/2022 at 16:27 (unknown) (no (unknown) (unknown) FINDINGS: (units (unkn own) date) unknown) (unknown) (no (unknown) (unknown) Hospital, CR, XR (units (unknown) date) HIP W PEL IF DONE unknown) RT 2V, 07/30/2022, 10:29. (unknown) (no (unknown) (unknown) IMPRESSION: (units (un known) date) Intraoperative unknown) hip arthroplasty. (unknown) (no (unknown) (unknown) INDICATIONS: REJI (units (unknown) date) INNEROP unknown) (unknown) (no (unknown) (unknown) Intraoperative (units (unknown) date) right hip unknown) arthroplasty changes are present. Images demonstrate (unknown) (no (unknown) (unknown) [facility] (units (unknown) date) unknown) (unknown) (no (unknown) (unknown) [place] (units (unkno wn) date) unknown) (unknown) (no (unknown) (unknown) Loc: 209-1 (units ( unknown) date) unknown) (unknown) (no (unknown) (unknown) [id number] (units (unk nown) date) unknown) (unknown) (no (unknown) (unknown) Ordering (units (unkno wn) date) Provider: unknown) Iva Zazueta P.A-C (unknown) (no (unknown) (unknown) PROCEDURE: XR (units ( unknown) date) HIP W PEL IF DONE unknown) RT 2V (unknown) (no (unknown) (unknown) Patient: (units (unkno wn) date) Adilene Martinez unknown) A MR#: (unknown) (no (unknown) (unknown) Procedure: XR (units ( unknown) date) hip w pel if done unknown) RT 2V (unknown) (no (unknown) (unknown) Signed (units (unkno wn) date) unknown) (unknown) (no (unknown) (unknown) TECHNIQUE: AP (units ( unknown) date) pelvis and unknown) lateral view of the right hip acquired. (unknown) (no (unknown) (unknown) XRay Report (units (un known) date) unknown) (unknown) (no (unknown) (unknown) alignment. (units (unk nown) date) Surrounding unknown) osseous structures are intact. (unknown) (no (unknown) (unknown) anatomic (units (unkno wn) date) unknown) (unknown) (no (unknown) (unknown) good (units (unkno wn) date) unknown) Result panel 37 (unknown) (no date) (unknown) (unknown) (no value) (units (un known) unknown) (unknown) (no date) (unknown) (unknown) 07/30/22 0732 (units (unknown) unknown) (unknown) (no date) (unknown) (unknown) Age/Sex: 86 / (units (unknown) M unknown) (unknown) (no date) (unknown) (unknown) COVID-19 (units (unkn own) status: unknown) Negative (unknown) (no date) (unknown) (unknown) COVID-19 (units (unkn own) unknown) (unknown) (no date) (unknown) (unknown) Changes to (units (un known) H+P: No unknown) (unknown) (no date) (unknown) (unknown) : (units (unkn own) 1935 unknown) Acct:[id number] (unknown) (no date) (unknown) (unknown) Date of (units (unkn own) Service: unknown) 07/30/22 (unknown) (no date) (unknown) (unknown) History + (units (unk nown) Physical unknown) reviewed/Exam performed by Physician: Yes (unknown) (no date) (unknown) (unknown) Interval Note (units (unknown) unknown) (unknown) (no date) (unknown) (unknown) [place] (units (unkn own) [facility] unknown) [address] [place] [id number] (unknown) (no date) (unknown) (unknown) [id number] (units (un known) unknown) (unknown) (no date) (unknown) (unknown) Patient: (units (unkn own) Brian Martinez unknown) am A MR#: (unknown) (no date) (unknown) (unknown) Pre-operative (units (unknown) Note unknown) (unknown) (no date) (unknown) (unknown) Provider: (units (unk nown) Priti Portillo unknown) (unknown) (no date) (unknown) (unknown) Signed (units (unkn own) By:<Electronic unknown) ally signed by Priti Portillo MD> Result panel 38 (unknown) (no (unknown) (unknown) (no value) (units (unk nown) date) unknown) (unknown) (no (unknown) (unknown) A 2nd cut was made (units (unknown) date) along the femoral unknown) neck at the base of the head and a napkin (unknown) (no (unknown) (unknown) A portion of the (units (unknown) date) labrum was resected. unknown) A saw was used to perform an osteotomy at (unknown) (no (unknown) (unknown) A trial cup was (units (unknown) date) placed and noted unknown) that it was appropriately sized and fluoroscopy (unknown) (no (unknown) (unknown) Additional (units (unk nown) date) broaching was unknown) performed. Canal finder was used to determine the (unknown) (no (unknown) (unknown) Age/Sex: 86 / M (units (unknown) date) unknown) (unknown) (no (unknown) (unknown) Anesthesia Type: (units (unknown) date) General and Spinal unknown) (unknown) (no (unknown) (unknown) Anesthesia was (units ( unknown) date) induced. She was unknown) positioned in the on the table in order to allow (unknown) (no (unknown) (unknown) Any tensor fascia (units (unknown) date) kong muscle that unknown) appeared to be contused or injured which was (unknown) (no (unknown) (unknown) Mainstreaming Facilitator: Rona (unit s (unknown) date) Janell Fisher unknown) (unknown) (no (unknown) (unknown) Attention was then (units (unknown) date) directed to the unknown) femur. The femur was gently hyperextended (unknown) (no (unknown) (unknown) Blood products (units (unknown) date) transfused: none unknown) (unknown) (no (unknown) (unknown) Closure Type: (units ( unknown) date) primary unknown) (unknown) (no (unknown) (unknown) Complications: none (unit s (unknown) date) unknown) (unknown) (no (unknown) (unknown) Condition: stable (units (unknown) date) unknown) (unknown) (no (unknown) (unknown) : 1935 (units (unknown) date) Acct:[id number] unknown) (unknown) (no (unknown) (unknown) Date of Service: (units (unknown) date) 07/30/22 unknown) (unknown) (no (unknown) (unknown) Date of procedure: (units (unknown) date) 07/30/22 unknown) (unknown) (no (unknown) (unknown) Disposition: Acute (units (unknown) date) Care unknown) (unknown) (no (unknown) (unknown) Estimated Blood (units (unknown) date) Loss (mL): 250 unknown) (unknown) (no (unknown) (unknown) Final neutral poly (units (unknown) date) was placed without unknown) difficulty. Marcaine and Exparel were (unknown) (no (unknown) (unknown) Findings: (units (unkn own) date) unknown) (unknown) (no (unknown) (unknown) Indications: (units (u nknown) date) unknown) (unknown) (no (unknown) (unknown) [facility] (units (unknown) date) [address] [place] [address] unknown) [place] [address] (unknown) (no (unknown) (unknown) Lidocaine with epi. (unit s (unknown) date) Superficial unknown) hemostasis was achieved. The fascia over the (unknown) (no (unknown) (unknown) [id number] (units (unk nown) date) unknown) (unknown) (no (unknown) (unknown) Mantis. (units (unkno wn) date) unknown) (unknown) (no (unknown) (unknown) Operative (units (unkn own) date) Date/Time/Diagnoses unknown) (unknown) (no (unknown) (unknown) Operative Note (units (unknown) date) unknown) (unknown) (no (unknown) (unknown) Operative Notes (units (unknown) date) unknown) (unknown) (no (unknown) (unknown) Patient: (units (unkno wn) date) Abril,Adilene A unknown) MR#: (unknown) (no (unknown) (unknown) Plan for aftercare: (unit s (unknown) date) unknown) (unknown) (no (unknown) (unknown) Post-op diagnosis: (units (unknown) date) same unknown) (unknown) (no (unknown) (unknown) Post-operative (units (unknown) date) unknown) (unknown) (no (unknown) (unknown) Pre-op diagnosis: (units (unknown) date) right hip OA unknown) (unknown) (no (unknown) (unknown) Procedure + (units (un known) date) Clinicians unknown) (unknown) (no (unknown) (unknown) Procedure in (units (u nkn) date) detail: unknown) (unknown) (no (unknown) (unknown) Procedure: (units (unk nown) date) unknown) (unknown) (no (unknown) (unknown) Prosthetic devices, (unit s (unknown) date) grafts, tissues, unknown) transplants, or devices: (unknown) (no (unknown) (unknown) Provider: (units (unkn own) date) Priti Portillo MD unknown) (unknown) (no (unknown) (unknown) Risks discussed (units (unknown) date) included, but were unknown) not limited to, failure to relieve pain, leg (unknown) (no (unknown) (unknown) Same procedure as (units (unknown) date) scheduled: Yes unknown) (unknown) (no (unknown) (unknown) 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 The fascia of (unknown) (no (unknown) (unknown) The cup was tested (units (unknown) date) and noted to be unknown) stable. (unknown) (no (unknown) (unknown) The patient has had (unit s (unknown) date) progressively unknown) worsening right hip pain with radiographic (unknown) (no (unknown) (unknown) The patient was (units (unknown) date) brought to the unknown) operating room. Patient was carefully positioned (unknown) (no (unknown) (unknown) The patient will be (units (unknown) date) maintained on a unknown) standard total hip replacement protocol with (unknown) (no (unknown) (unknown) There was good (units (unknown) date) visualization of the unknown) femoral neck. A Cobra was placed superior (unknown) (no (unknown) (unknown) Time of procedure: (units (unknown) date) 07:50 unknown) (unknown) (no (unknown) (unknown) a minimal amount (units (unknown) date) was carefully unknown) resected. Capsule around the tensor was injected (unknown) (no (unknown) (unknown) above the lesser (units (unknown) date) trochanter. unknown) (unknown) (no (unknown) (unknown) acetabulum. (units (un known) date) Residual labrum was unknown) resected and additional osteophytes were (unknown) (no (unknown) (unknown) additional capsular (unit s (unknown) date) release was unknown) performed as needed in order to allow adequate (unknown) (no (unknown) (unknown) adduction and (units ( unknown) date) internal rotation. unknown) (unknown) (no (unknown) (unknown) adequate stability (units (unknown) date) of the broach and unknown) serial advancement of the broach without (unknown) (no (unknown) (unknown) adequately seated (units (unknown) date) and was well unknown) positioned. Neutral poly trial liner was placed. (unknown) (no (unknown) (unknown) alignment of the (units (unknown) date) canal and position. unknown) Size 1 broach was placed. The canal was (unknown) (no (unknown) (unknown) alternatives to (units (unknown) date) surgery were unknown) discussed with the patient prior to proceeding. (unknown) (no (unknown) (unknown) and , as well (units (unknown) date) as the potential unknown) need for eventual revision of the (unknown) (no (unknown) (unknown) anticipated size (units (unknown) date) and touched the rim unknown) with line to line reaming. (unknown) (no (unknown) (unknown) appropriate lateral (unit s (unknown) date) shuck. I also unknown) hyperflexed the hip and checked that there (unknown) (no (unknown) (unknown) aspect of the (units ( unknown) date) capsule. A 2nd unknown) retractor was placed along the inferior aspect of (unknown) (no (unknown) (unknown) attempting to (units ( unknown) date) direct the distal unknown) aspect of the broach more anteriorly and (unknown) (no (unknown) (unknown) avoiding excessive (units (unknown) date) anteversion. Trial unknown) reduction showed acceptable range of (unknown) (no (unknown) (unknown) changes consistent (units (unknown) date) with arthritis. unknown) Non-operative management has failed and the (unknown) (no (unknown) (unknown) circumflex vessels (units (unknown) date) were carefully unknown) identified and cauterized with the Aqua (unknown) (no (unknown) (unknown) condition. (units (unk nown) date) unknown) (unknown) (no (unknown) (unknown) confirm the (units (un known) date) position of the unknown) reaming and depth of reaming. I reamed 1 under the (unknown) (no (unknown) (unknown) confirmed position (units (unknown) date) and depth. The unknown) component was open and inserted without (unknown) (no (unknown) (unknown) difficulty (units (unk nown) date) fluoroscopic imaging unknown) was used to confirm that the cup had been (unknown) (no (unknown) (unknown) excessive (units (unkn own) date) impingement. unknown) Specific attention was directed at avoiding varus (unknown) (no (unknown) (unknown) femoral neck (units (u nknown) date) leaving unknown) approximately 1 finger breath of residual inferior neck (unknown) (no (unknown) (unknown) fracture. Final (units (unknown) date) head was placed. unknown) Wound was meticulously irrigated with normal (unknown) (no (unknown) (unknown) greater trochanter. (unit s (unknown) date) Dissection was unknown) carried out through skin and subcutaneous (unknown) (no (unknown) (unknown) hyperextension of (units (unknown) date) the hip. The [] unknown) lower extremity was prepped and draped in a (unknown) (no (unknown) (unknown) in the supine (units ( unknown) date) position. Time-out unknown) was performed and antibiotics were given. (unknown) (no (unknown) (unknown) injected.. The stem (unit s (unknown) date) was placed without unknown) difficulty. Repeat trial reduction and (unknown) (no (unknown) (unknown) lateral to the (units (unknown) date) anterior superior unknown) iliac spine and extended distally towards the (unknown) (no (unknown) (unknown) length discrepancy, (units (unknown) date) dislocation, unknown) stiffness, infection, nerve damage, deep venous (unknown) (no (unknown) (unknown) line (units (unkno wn) date) circumferentially unknown) superior to the mid sagittal line and inferiorly to the (unknown) (no (unknown) (unknown) mid sagittal line (units (unknown) date) until the lesser unknown) trochanter was palpable. A tag stitch was (unknown) (no (unknown) (unknown) motion, good (units (u nknown) date) stability, no unknown) posterior impingement, holiness of leg length and (unknown) (no (unknown) (unknown) patient has (units (un known) date) requested total hip unknown) replacement. The risks, benefits and (unknown) (no (unknown) (unknown) patient will be (units (unknown) date) discharged home when unknown) safe for the home environment. (unknown) (no (unknown) (unknown) placed both in the (units (unknown) date) superior and unknown) inferior limb of the capsular insertion. Along (unknown) (no (unknown) (unknown) placed in a (units (un known) date) hyperextended unknown) slightly adducted position with maximum external (unknown) (no (unknown) (unknown) prosthetic. (units (un known) date) unknown) (unknown) (no (unknown) (unknown) reamed up to 2 (units (unknown) date) under the templated unknown) size and fluoroscopy was brought in to (unknown) (no (unknown) (unknown) receive Aspirin and (unit s (unknown) date) sequential unknown) compression devices for DVT prophylaxis. The (unknown) (no (unknown) (unknown) rectus. Capsule was (unit s (unknown) date) carefully incised unknown) and released from the intertrochanteric (unknown) (no (unknown) (unknown) removed. A reamer (units (unknown) date) that was 4 mm below unknown) the templated size was placed by hand in (unknown) (no (unknown) (unknown) retractor that was (units (unknown) date) then gently placed unknown) over the rim of the acetabulum under the (unknown) (no (unknown) (unknown) retractor was (units ( unknown) date) placed. Dissection unknown) was carried out down along the neck. The (unknown) (no (unknown) (unknown) right total hip (units (unknown) date) arthroplasty unknown) anterior approach (unknown) (no (unknown) (unknown) ring of neck was (units (unknown) date) removed. Corkscrew unknown) was placed in the femoral head and the head (unknown) (no (unknown) (unknown) rotation. Box (units ( unknown) date) osteotome was used unknown) to check for any residual neck as well as (unknown) (no (unknown) (unknown) saline. The hip was (unit s (unknown) date) reduced and unknown) additional Exparel and Marcaine were injected. (unknown) (no (unknown) (unknown) sclerotic bone (units (unknown) date) along the unknown) trochanter. [place] pepper was placed in the femur. (unknown) (no (unknown) (unknown) standard sterile (units (unknown) date) fashion. An anterior unknown) [] hip incision was made 1 fingerbreadth (unknown) (no (unknown) (unknown) sterilely. Brief (units (unknown) date) Betadine soak was unknown) also used and was meticulously irrigated (unknown) (no (unknown) (unknown) subcutaneous tissue (unit s (unknown) date) and skin. We also unknown) used surgical glue. The wound was dressed (unknown) (no (unknown) (unknown) tensor fascia kong (units (unknown) date) was defined and unknown) incised with a knife. Two Allis clamps were (unknown) (no (unknown) (unknown) the acetabulum and (units (unknown) date) it was reamed to unknown) centralize the acetabulum. It was then (unknown) (no (unknown) (unknown) the acetabulum (units (unknown) date) capsule was also unknown) released up to the mid sagittal 12:00 position. (unknown) (no (unknown) (unknown) the level of the (units (unknown) date) intertrochanteric unknown) line and the junction of the superior (unknown) (no (unknown) (unknown) the neck. The (units ( unknown) date) rectus insertion unknown) along the capsule was partially released. A 3rd (unknown) (no (unknown) (unknown) the tensor was (units (unknown) date) closed with unknown) interrupted and running Vicryl. No drain was placed. (unknown) (no (unknown) (unknown) then appropriately (units (unknown) date) broached up to the unknown) templated size as long as there was (unknown) (no (unknown) (unknown) thrombosis, (units (un known) date) pulmonary embolism, unknown) stroke, coma, heart attack, permanent paralysis (unknown) (no (unknown) (unknown) tissues. The skin (units (unknown) date) and subcutaneous unknown) tissues were carefully injected with (unknown) (no (unknown) (unknown) to the neck and the (unit s (unknown) date) gluteus fibers were unknown) carefully stripped from that superior (unknown) (no (unknown) (unknown) used to grasp the (units (unknown) date) fascia. Tensor unknown) fascia kong was retracted laterally. A gelpi (unknown) (no (unknown) (unknown) visualization of (units (unknown) date) the proximal femur unknown) with elevation of the femur. Patient was (unknown) (no (unknown) (unknown) was no impingement (units (unknown) date) anteriorly and there unknown) was good stability with flexion, (unknown) (no (unknown) (unknown) was removed without (unit s (unknown) date) difficulty. unknown) Retractors were then repositioned around the (unknown) (no (unknown) (unknown) weight bearing as (units (unknown) date) tolerated and unknown) anterior hip precautions. The patient will (unknown) (no (unknown) (unknown) with Exparel and (units (unknown) date) Marcaine. The skin unknown) was closed with barbed stitches for the (unknown) (no (unknown) (unknown) with normal saline. (unit s (unknown) date) Patient was unknown) transferred to recovery room in satisfactory (unknown) (no (unknown) (unknown) x-ray showed (units (un known) date) acceptable overall unknown) position, length, and no evidence of the femoral Result panel 39 (unknown) (no (unknown) (unknown) (no value) (units (unk nown) date) unknown) (unknown) (no (unknown) (unknown) 07/30/22 (units (unkno wn) date) unknown) (unknown) (no (unknown) (unknown) [address] [place] [address] (units (unknown) date) unknown) (unknown) (no (unknown) (unknown) Accession (units (unkn own) date) Number: unknown) [id number] (unknown) (no (unknown) (unknown) Age/Sex: 86 / M (units (unknown) date) Date of Service: unknown) (unknown) (no (unknown) (unknown) [place], [place] (units ( unknown) date) [id number] unknown) (unknown) (no (unknown) (unknown) Approved by: (units (u nknown) date) zenaida Washington M.D. on 07/30/2022 at 16:31 (unknown) (no (unknown) (unknown) Bones: Patient (units (unknown) date) is status post unknown) right hip arthroplasty, with hardware components (unknown) (no (unknown) (unknown) COMPARISON: (units (un known) date) [facility], unknown) CR, XR HIP W PEL IF DONE RT 2V, 07/30/2022, 10:19. (unknown) (no (unknown) (unknown) Caution: Report (units (unknown) date) not yet finalized unknown) and possibly incomplete! (unknown) (no (unknown) (unknown) : 1935 (units (unknown) date) Acct:[id number] unknown) (unknown) (no (unknown) (unknown) Dictated by: (units (u nknown) date) jaziel WashingtonToña Bowers on 07/30/2022 at 11:20 (unknown) (no (unknown) (unknown) Draft (units (unkno wn) date) unknown) (unknown) (no (unknown) (unknown) FINDINGS: (units (unkn own) date) unknown) (unknown) (no (unknown) (unknown) IMPRESSION: (units (un known) date) Expected unknown) appearance of right hip arthroplasty. (unknown) (no (unknown) (unknown) INDICATIONS: (units (u nknown) date) POST OP RIGHT HIP unknown) (unknown) (no (unknown) (unknown) [facility] (units (unknown) date) unknown) (unknown) (no (unknown) (unknown) Loc: AC 209-1 (units ( unknown) date) unknown) (unknown) (no (unknown) (unknown) [id number] (units (unk nown) date) unknown) (unknown) (no (unknown) (unknown) Ordering (units (unkno wn) date) Provider: unknown) Priti Portillo MD (unknown) (no (unknown) (unknown) PROCEDURE: XR (units ( unknown) date) HIP W PEL IF DONE unknown) RT 2V (unknown) (no (unknown) (unknown) Patient: (units (unkno wn) date) Adilene Martinez unknown) A MR#: (unknown) (no (unknown) (unknown) Procedure: XR (units ( unknown) date) hip w pel if done unknown) RT 2V (unknown) (no (unknown) (unknown) Signed (units (unkno wn) date) unknown) (unknown) (no (unknown) (unknown) Soft tissues: (units ( unknown) date) Overlying unknown) postoperative changes are noted. No suspicious soft (unknown) (no (unknown) (unknown) TECHNIQUE: AP (units ( unknown) date) pelvis and unknown) lateral view of the right hip acquired. (unknown) (no (unknown) (unknown) Transcribed by: (units (unknown) date) MELVIN on unknown) 07/30/2022 at 11:21 (unknown) (no (unknown) (unknown) XRay Report (units (un known) date) unknown) (unknown) (no (unknown) (unknown) appear intact. (units (unknown) date) unknown) (unknown) (no (unknown) (unknown) densities. (units (unk nown) date) unknown) (unknown) (no (unknown) (unknown) expected (units (unkno wn) date) positions. The unknown) hip joint appears congruent. The visualized bony (unknown) (no (unknown) (unknown) in (units (unkno wn) date) unknown) (unknown) (no (unknown) (unknown) structures (units (unk nown) date) unknown) (unknown) (no (unknown) (unknown) tissue (units (unkno wn) date) unknown) Result panel 40 (unknown) (no (unknown) (unknown) (no value) (units (unk nown) date) unknown) (unknown) (no (unknown) (unknown) 07/30/22 1108 (units ( unknown) date) unknown) (unknown) (no (unknown) (unknown) A 2nd cut was made (units (unknown) date) along the femoral unknown) neck at the base of the head and a napkin (unknown) (no (unknown) (unknown) A portion of the (units (unknown) date) labrum was resected. unknown) A saw was used to perform an osteotomy at (unknown) (no (unknown) (unknown) A trial cup was (units (unknown) date) placed and noted unknown) that it was appropriately sized and fluoroscopy (unknown) (no (unknown) (unknown) Additional (units (unk nown) date) broaching was unknown) performed. Canal finder was used to determine the (unknown) (no (unknown) (unknown) Age/Sex: 86 / M (units (unknown) date) unknown) (unknown) (no (unknown) (unknown) Anesthesia Type: (units (unknown) date) General and Spinal unknown) (unknown) (no (unknown) (unknown) Anesthesia was (units (unknown) date) induced. He was unknown) positioned in the on the table in order to allow (unknown) (no (unknown) (unknown) Any tensor fascia (units (unknown) date) kong muscle that unknown) appeared to be contused or injured which was (unknown) (no (unknown) (unknown) Mainstreaming Facilitator: Rona (unit s (unknown) date) Janell Fisher unknown) (unknown) (no (unknown) (unknown) Attention was then (units (unknown) date) directed to the unknown) femur. The femur was gently hyperextended (unknown) (no (unknown) (unknown) Blood products (units (unknown) date) transfused: none unknown) (unknown) (no (unknown) (unknown) Closure Type: (units ( unknown) date) primary unknown) (unknown) (no (unknown) (unknown) Complications: none (unit s (unknown) date) unknown) (unknown) (no (unknown) (unknown) Condition: stable (units (unknown) date) unknown) (unknown) (no (unknown) (unknown) : 1935 (units (unknown) date) Acct:[id number] unknown) (unknown) (no (unknown) (unknown) Date of Service: (units (unknown) date) 07/30/22 unknown) (unknown) (no (unknown) (unknown) Date of procedure: (units (unknown) date) 07/30/22 unknown) (unknown) (no (unknown) (unknown) Disposition: Acute (units (unknown) date) Care unknown) (unknown) (no (unknown) (unknown) Estimated Blood (units (unknown) date) Loss (mL): 250 unknown) (unknown) (no (unknown) (unknown) Exparel and (units (un known) date) Marcaine were unknown) injected. (unknown) (no (unknown) (unknown) Findings: (units (unkn own) date) unknown) (unknown) (no (unknown) (unknown) Indications: (units (u nknown) date) unknown) (unknown) (no (unknown) (unknown) [facility] (units (unknown) date) [address] [place] [address] unknown) [place] [address] (unknown) (no (unknown) (unknown) [id number] (units (unk nown) date) unknown) (unknown) (no (unknown) (unknown) Mantis. (units (unkno wn) date) unknown) (unknown) (no (unknown) (unknown) Marcaine and (units (u nknown) date) Exparel were unknown) injected. The stem was placed without difficulty. (unknown) (no (unknown) (unknown) Operative (units (unkn own) date) Date/Time/Diagnoses unknown) (unknown) (no (unknown) (unknown) Operative Note (units (unknown) date) unknown) (unknown) (no (unknown) (unknown) Operative Notes (units (unknown) date) unknown) (unknown) (no (unknown) (unknown) Patient: (units (unkno wn) date) Adilene Martinez unknown) MR#: (unknown) (no (unknown) (unknown) Plan for aftercare: (unit s (unknown) date) unknown) (unknown) (no (unknown) (unknown) Post-op diagnosis: (units (unknown) date) same unknown) (unknown) (no (unknown) (unknown) Post-operative (units (unknown) date) unknown) (unknown) (no (unknown) (unknown) Pre-op diagnosis: (units (unknown) date) right hip OA unknown) (unknown) (no (unknown) (unknown) Procedure + (units (un known) date) Clinicians unknown) (unknown) (no (unknown) (unknown) Procedure in (units (u nknown) date) detail: unknown) (unknown) (no (unknown) (unknown) Procedure: (units (unk nown) date) unknown) (unknown) (no (unknown) (unknown) Prosthetic devices, (unit s (unknown) date) grafts, tissues, unknown) transplants, or devices: (unknown) (no (unknown) (unknown) Provider: (units (unkn own) date) Priti Portillo MD unknown) (unknown) (no (unknown) (unknown) Repeat trial (units (un known) date) reduction and x-ray unknown) showed acceptable overall position, length, and (unknown) (no (unknown) (unknown) Risks discussed (units (unknown) date) included, but were unknown) not limited to, failure to relieve pain, leg (unknown) (no (unknown) (unknown) Same procedure as (units (unknown) date) scheduled: Yes unknown) (unknown) (no (unknown) (unknown) 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, unknown) adequate stability (unknown) (no (unknown) (unknown) Signed (units (unkno wn) date) By:<Electronically unknown) signed by Priti Portillo MD> (unknown) (no (unknown) (unknown) Adamaris (units (unknown) date) anthology size 10, unknown) size 58 R3 cup, neutral poly liner, 36 x -3 (unknown) (no (unknown) (unknown) Specimen(s): none (units (unknown) date) sent unknown) (unknown) (no (unknown) (unknown) Surgeon: Priti Maciel (units (unknown) date) [place] unknown) (unknown) (no (unknown) (unknown) The capsule was (units (unknown) date) closed with unknown) interrupted nonabsorbable sutures. The fascia of (unknown) (no (unknown) (unknown) The patient has had (unit s (unknown) date) progressively unknown) worsening right hip pain with radiographic (unknown) (no (unknown) (unknown) The patient was (units (unknown) date) brought to the unknown) operating room. Patient was carefully positioned (unknown) (no (unknown) (unknown) The patient will be (units (unknown) date) maintained on a unknown) standard total hip replacement protocol with (unknown) (no (unknown) (unknown) There was good (units (unknown) date) visualization of the unknown) femoral neck. A Cobra was placed superior (unknown) (no (unknown) (unknown) Time of procedure: (units (unknown) date) 07:50 unknown) (unknown) (no (unknown) (unknown) a minimal amount (units (unknown) date) was carefully unknown) resected. Capsule around the tensor was injected (unknown) (no (unknown) (unknown) a standard sterile (units (unknown) date) fashion. An anterior unknown) right hip incision was made 1 (unknown) (no (unknown) (unknown) acetabulum. (units (un known) date) Residual labrum was unknown) resected and additional osteophytes were (unknown) (no (unknown) (unknown) additional capsular (unit s (unknown) date) release was unknown) performed as needed in order to allow adequate (unknown) (no (unknown) (unknown) adduction and (units ( unknown) date) internal rotation. unknown) (unknown) (no (unknown) (unknown) adequate stability (units (unknown) date) of the broach and unknown) serial advancement of the broach without (unknown) (no (unknown) (unknown) adequately seated (units (unknown) date) and was well unknown) positioned. It was further stabilized with a (unknown) (no (unknown) (unknown) alignment of the (units (unknown) date) canal and position. unknown) Size 1 broach was placed. The canal was (unknown) (no (unknown) (unknown) alternatives to (units (unknown) date) surgery were unknown) discussed with the patient prior to proceeding. (unknown) (no (unknown) (unknown) and , as well (units (unknown) date) as the potential unknown) need for eventual revision of the (unknown) (no (unknown) (unknown) anticipated size. (units (unknown) date) unknown) (unknown) (no (unknown) (unknown) appropriate lateral (unit s (unknown) date) shuck. I also unknown) hyperflexed the hip and checked that there (unknown) (no (unknown) (unknown) aspect of the (units ( unknown) date) capsule. A 2nd unknown) retractor was placed along the inferior aspect of (unknown) (no (unknown) (unknown) attempting to (units ( unknown) date) direct the distal unknown) aspect of the broach more anteriorly and (unknown) (no (unknown) (unknown) avoiding excessive (units (unknown) date) anteversion. Trial unknown) reduction showed acceptable range of (unknown) (no (unknown) (unknown) changes consistent (units (unknown) date) with arthritis. unknown) Non-operative management has failed and the (unknown) (no (unknown) (unknown) circumflex vessels (units (unknown) date) were carefully unknown) identified and cauterized with the Aqua (unknown) (no (unknown) (unknown) cobalt chrome head, (unit s (unknown) date) one 6.5 mm screw unknown) (unknown) (no (unknown) (unknown) condition. (units (unk nown) date) unknown) (unknown) (no (unknown) (unknown) confirm the (units (un known) date) position of the unknown) reaming and depth of reaming. I reamed 1 under the (unknown) (no (unknown) (unknown) confirmed position (units (unknown) date) and depth. The unknown) component was open and inserted without (unknown) (no (unknown) (unknown) difficulty (units (unk nown) date) fluoroscopic imaging unknown) was used to confirm that the cup had been (unknown) (no (unknown) (unknown) excessive (units (unkn own) date) impingement. unknown) Specific attention was directed at avoiding varus (unknown) (no (unknown) (unknown) fingerbreadth (units (u nknown) date) lateral to the unknown) anterior superior iliac spine and extended distally (unknown) (no (unknown) (unknown) hyperextension of (units (unknown) date) the hip. The right unknown) lower extremity was prepped and draped in (unknown) (no (unknown) (unknown) in the supine (units ( unknown) date) position. Time-out unknown) was performed and antibiotics were given. (unknown) (no (unknown) (unknown) length discrepancy, (units (unknown) date) dislocation, unknown) stiffness, infection, nerve damage, deep venous (unknown) (no (unknown) (unknown) lesser trochanter. (units (unknown) date) unknown) (unknown) (no (unknown) (unknown) line (units (unkno wn) date) circumferentially unknown) superior to the mid sagittal line and inferiorly to the (unknown) (no (unknown) (unknown) meticulously (units (u nknown) date) irrigated with unknown) normal saline. The hip was reduced and additional (unknown) (no (unknown) (unknown) mid sagittal line (units (unknown) date) until the lesser unknown) trochanter was palpable. A tag stitch was (unknown) (no (unknown) (unknown) motion, good (units (u nknown) date) stability, no unknown) posterior impingement, holiness of leg length and (unknown) (no (unknown) (unknown) neck leaving (units (u nknown) date) approximately 1 unknown) finger breath of residual inferior neck above the (unknown) (no (unknown) (unknown) no evidence of the (units (unknown) date) femoral fracture. unknown) Final head was placed. Wound was (unknown) (no (unknown) (unknown) patient has (units (un known) date) requested total hip unknown) replacement. The risks, benefits and (unknown) (no (unknown) (unknown) patient will be (units (unknown) date) discharged home when unknown) safe for the home environment. (unknown) (no (unknown) (unknown) placed both in the (units (unknown) date) superior and unknown) inferior limb of the capsular insertion. Along (unknown) (no (unknown) (unknown) placed in a (units (un known) date) hyperextended unknown) slightly adducted position with maximum external (unknown) (no (unknown) (unknown) prosthetic. (units (un known) date) unknown) (unknown) (no (unknown) (unknown) reamed up to 2 (units (unknown) date) under the templated unknown) size and fluoroscopy was brought in to (unknown) (no (unknown) (unknown) receive Aspirin and (unit s (unknown) date) sequential unknown) compression devices for DVT prophylaxis. The (unknown) (no (unknown) (unknown) rectus. Capsule was (unit s (unknown) date) carefully incised unknown) and released from the intertrochanteric (unknown) (no (unknown) (unknown) removed. A reamer (units (unknown) date) that was 4 mm below unknown) the templated size was placed by hand in (unknown) (no (unknown) (unknown) retractor that was (units (unknown) date) then gently placed unknown) over the rim of the acetabulum under the (unknown) (no (unknown) (unknown) retractor was (units ( unknown) date) placed. Dissection unknown) was carried out down along the neck. The (unknown) (no (unknown) (unknown) right total hip (units (unknown) date) arthroplasty unknown) anterior approach (unknown) (no (unknown) (unknown) ring of neck was (units (unknown) date) removed. Corkscrew unknown) was placed in the femoral head and the head (unknown) (no (unknown) (unknown) rotation. Box (units ( unknown) date) osteotome was used unknown) to check for any residual neck as well as (unknown) (no (unknown) (unknown) sclerotic bone (units (unknown) date) along the unknown) trochanter. [place] pepper was placed in the femur. (unknown) (no (unknown) (unknown) single screw. (units ( unknown) date) Neutral poly liner unknown) was placed. The cup was tested and noted to be (unknown) (no (unknown) (unknown) stable. (units (unkno wn) date) unknown) (unknown) (no (unknown) (unknown) sterilely. Brief (units (unknown) date) Betadine soak was unknown) also used and was meticulously irrigated (unknown) (no (unknown) (unknown) subcutaneous tissue (unit s (unknown) date) and skin. We also unknown) used surgical glue. The wound was dressed (unknown) (no (unknown) (unknown) subcutaneous (units (u nknown) date) tissues. Superficial unknown) hemostasis was achieved. The fascia over the (unknown) (no (unknown) (unknown) tensor fascia kong (units (unknown) date) was defined and unknown) incised with a knife. Two Allis clamps were (unknown) (no (unknown) (unknown) the acetabulum and (units (unknown) date) it was reamed to unknown) centralize the acetabulum. It was then (unknown) (no (unknown) (unknown) the acetabulum (units (unknown) date) capsule was also unknown) released up to the mid sagittal 12:00 position. (unknown) (no (unknown) (unknown) the level of the (units (unknown) date) intertrochanteric unknown) line and the junction of the superior femoral (unknown) (no (unknown) (unknown) the neck. The (units ( unknown) date) rectus insertion unknown) along the capsule was partially released. A 3rd (unknown) (no (unknown) (unknown) the tensor was (units (unknown) date) closed with unknown) interrupted and running Vicryl. No drain was placed. (unknown) (no (unknown) (unknown) then appropriately (units (unknown) date) broached up to the unknown) templated size as long as there was (unknown) (no (unknown) (unknown) thrombosis, (units (un known) date) pulmonary embolism, unknown) stroke, coma, heart attack, permanent paralysis (unknown) (no (unknown) (unknown) to the neck and the (unit s (unknown) date) gluteus fibers were unknown) carefully stripped from that superior (unknown) (no (unknown) (unknown) towards the greater (unit s (unknown) date) trochanter. unknown) Dissection was carried out through skin and (unknown) (no (unknown) (unknown) used to grasp the (units (unknown) date) fascia. Tensor unknown) fascia kong was retracted laterally. A gelpi (unknown) (no (unknown) (unknown) visualization of (units (unknown) date) the proximal femur unknown) with elevation of the femur. Patient was (unknown) (no (unknown) (unknown) was no impingement (units (unknown) date) anteriorly and there unknown) was good stability with flexion, (unknown) (no (unknown) (unknown) was removed without (unit s (unknown) date) difficulty. unknown) Retractors were then repositioned around the (unknown) (no (unknown) (unknown) weight bearing as (units (unknown) date) tolerated and unknown) anterior hip precautions. The patient will (unknown) (no (unknown) (unknown) with Exparel and (units (unknown) date) Marcaine. The skin unknown) was closed with barbed stitches for the (unknown) (no (unknown) (unknown) with normal saline. (unit s (unknown) date) Patient was unknown) transferred to recovery room in satisfactory Result panel 41 (unknown) (no (unknown) (unknown) (no value) (units (unk nown) date) unknown) (unknown) (no (unknown) (unknown) (past 8 hours): (units (unknown) date) unknown) (unknown) (no (unknown) (unknown) 07/30/22 (units (unkno wn) date) unknown) (unknown) (no (unknown) (unknown) 11:02 07/30/22 (units (unknown) date) unknown) (unknown) (no (unknown) (unknown) 11:20 07/30/22 (units (unknown) date) unknown) (unknown) (no (unknown) (unknown) 11:50 (units (unkno wn) date) unknown) (unknown) (no (unknown) (unknown) 12:20 07/30/22 (units (unknown) date) unknown) (unknown) (no (unknown) (unknown) 13:20 (units (unkno wn) date) unknown) (unknown) (no (unknown) (unknown) Actual Procedure (units (unknown) date) Side Surgeon unknown) (unknown) (no (unknown) (unknown) Age/Sex: 86 / M (units (unknown) date) unknown) (unknown) (no (unknown) (unknown) Assessment + (units (u nknown) date) Plan Post-op unknown) (unknown) (no (unknown) (unknown) Awake, alert, (units ( unknown) date) and oriented. unknown) Strength intact, sensation slightly decreased to (unknown) (no (unknown) (unknown) Blood Pressure (units (unknown) date) 100/41 L 109/45 L unknown) 114/49 L (unknown) (no (unknown) (unknown) Blood Pressure (units (unknown) date) 112/52 L 122/56 L unknown) (unknown) (no (unknown) (unknown) COVID-19 virus (units (unknown) date) infection unknown) (unknown) (no (unknown) (unknown) : 1935 (units (unknown) date) Acct:[id number] unknown) (unknown) (no (unknown) (unknown) Date Patient (units (u nknown) date) Seen: 07/30/22 unknown) (unknown) (no (unknown) (unknown) Date of Service: (units (unknown) date) 07/30/22 unknown) (unknown) (no (unknown) (unknown) Enlarged (units (unkno wn) date) prostate unknown) (unknown) (no (unknown) (unknown) Exam Narrative: (units (unknown) date) unknown) (unknown) (no (unknown) (unknown) Exam (units (unkno wn) date) unknown) (unknown) (no (unknown) (unknown) Interval (units (unkno wn) date) history: unknown) (unknown) (no (unknown) (unknown) [facility] (units (unknown) date) [address] unknown) [place] [address] (unknown) (no (unknown) (unknown) [id number] (units (unk nown) date) unknown) (unknown) (no (unknown) (unknown) Medical History (units (unknown) date) (Updated 07/24/22 unknown) @ 12:17 by Rosa Delgado RN) (unknown) (no (unknown) (unknown) Narrative (units (unkn own) date) unknown) (unknown) (no (unknown) (unknown) No history of (units ( unknown) date) previous surgery unknown) (unknown) (no (unknown) (unknown) Operation Date: (units (unknown) date) 07/30/22 07:45 unknown) (unknown) (no (unknown) (unknown) Osteoarthritis (units (unknown) date) unknown) (unknown) (no (unknown) (unknown) Oxygen Delivery (units (unknown) date) Method Room Air unknown) (unknown) (no (unknown) (unknown) Oxygen Flow Rate (units (unknown) date) 0 0 unknown) (unknown) (no (unknown) (unknown) Oxygen Flow Rate (units (unknown) date) 0 unknown) (unknown) (no (unknown) (unknown) PFSH (units (unkno wn) date) unknown) (unknown) (no (unknown) (unknown) Patient is up (units ( unknown) date) sitting in his unknown) chair with 2 family members including his at (unknown) (no (unknown) (unknown) Patient: (units (unkno wn) date) Adilene Martinez unknown) A MR#: (unknown) (no (unknown) (unknown) Postoperative (units ( unknown) date) unknown) (unknown) (no (unknown) (unknown) Procedures (units (unk nown) date) unknown) (unknown) (no (unknown) (unknown) Procedures: (units (un known) date) unknown) (unknown) (no (unknown) (unknown) Progress Note (units ( unknown) date) unknown) (unknown) (no (unknown) (unknown) Provider: (units (unkn own) date) Rona Fisher unknown) (unknown) (no (unknown) (unknown) Pulse Oximetry (units (unknown) date) 96 97 98 unknown) (unknown) (no (unknown) (unknown) Pulse Oximetry (units (unknown) date) 99 99 unknown) (unknown) (no (unknown) (unknown) Pulse Rate 55 L (units (unknown) date) 56 L 54 L unknown) (unknown) (no (unknown) (unknown) Pulse Rate 57 L (units (unknown) date) 62 unknown) (unknown) (no (unknown) (unknown) Respiratory Rate (units (unknown) date) 16 16 20 unknown) (unknown) (no (unknown) (unknown) Respiratory Rate (units (unknown) date) 19 20 unknown) (unknown) (no (unknown) (unknown) Signed By: (units (unk nown) date) unknown) (unknown) (no (unknown) (unknown) Smoking Status: (units (unknown) date) Former smoker unknown) (unknown) (no (unknown) (unknown) Social History (units (unknown) date) unknown) (unknown) (no (unknown) (unknown) Subjective (units (unk nown) date) unknown) (unknown) (no (unknown) (unknown) Surgical History (units (unknown) date) (Updated 07/24/22 unknown) @ 12:11 by Rosa Delgado RN) (unknown) (no (unknown) (unknown) Temperature 97.2 (units (unknown) date) F L 96.7 F L 96.7 unknown) F L (unknown) (no (unknown) (unknown) Temperature 97.3 (units (unknown) date) F L 97.8 F unknown) (unknown) (no (unknown) (unknown) Time Patient (units (u nknown) date) Seen: 16:00 unknown) (unknown) (no (unknown) (unknown) Vital Signs (units (un known) date) unknown) (unknown) (no (unknown) (unknown) alcohol intake: (units (unknown) date) current unknown) (unknown) (no (unknown) (unknown) and down the (units (u nknown) date) hallway multiple unknown) times and do stairs. He is eager to go home (unknown) (no (unknown) (unknown) bedside. He does (units (unknown) date) not complain of unknown) any, states his lower extremities are still a (unknown) (no (unknown) (unknown) household (units (unkn own) date) members: spouse unknown) (unknown) (no (unknown) (unknown) little bit numb. (units (unknown) date) He has up to work unknown) with physical therapy he was able to walk up (unknown) (no (unknown) (unknown) lower (units (unkno wn) date) extremities. unknown) (unknown) (no (unknown) (unknown) once he has (units (un known) date) urinated without unknown) difficulty. (unknown) (no (unknown) (unknown) p Total Hip (units (un known) date) Arthroplasty/Ante unknown) rior Approach Right Priti Janell Portillo MD (unknown) (no (unknown) (unknown) today. Postop (units ( unknown) date) medications were unknown) prescribed at preop appointment. November discharge Result panel 42 (unknown) (no (unknown) (unknown) (no value) (units (unk nown) date) unknown) (unknown) (no (unknown) (unknown) (past 8 hours): (units (unknown) date) unknown) (unknown) (no (unknown) (unknown) 07/30/22 (units (unkno wn) date) unknown) (unknown) (no (unknown) (unknown) 11:02 07/30/22 (units (unknown) date) unknown) (unknown) (no (unknown) (unknown) 11:20 07/30/22 (units (unknown) date) unknown) (unknown) (no (unknown) (unknown) 11:50 (units (unkno wn) date) unknown) (unknown) (no (unknown) (unknown) 12:20 07/30/22 (units (unknown) date) unknown) (unknown) (no (unknown) (unknown) 13:20 (units (unkno wn) date) unknown) (unknown) (no (unknown) (unknown) Actual Procedure (units (unknown) date) Side Surgeon unknown) (unknown) (no (unknown) (unknown) Age/Sex: 86 / M (units (unknown) date) unknown) (unknown) (no (unknown) (unknown) Assessment + (units (u nknown) date) Plan Post-op unknown) (unknown) (no (unknown) (unknown) Awake, alert, (units ( unknown) date) and oriented. unknown) Strength intact to lower extremities. Right calf (unknown) (no (unknown) (unknown) Blood Pressure (units (unknown) date) 100/41 L 109/45 L unknown) 114/49 L (unknown) (no (unknown) (unknown) Blood Pressure (units (unknown) date) 112/52 L 122/56 L unknown) (unknown) (no (unknown) (unknown) COVID-19 virus (units (unknown) date) infection unknown) (unknown) (no (unknown) (unknown) : 1935 (units (unknown) date) Acct:[id number] unknown) (unknown) (no (unknown) (unknown) Date Patient (units (u nknown) date) Seen: 07/30/22 unknown) (unknown) (no (unknown) (unknown) Date of Service: (units (unknown) date) 07/30/22 unknown) (unknown) (no (unknown) (unknown) Enlarged (units (unkno wn) date) prostate unknown) (unknown) (no (unknown) (unknown) Exam Narrative: (units (unknown) date) unknown) (unknown) (no (unknown) (unknown) Exam (units (unkno wn) date) unknown) (unknown) (no (unknown) (unknown) Interval (units (unkno wn) date) history: unknown) (unknown) (no (unknown) (unknown) [facility] (units (unknown) date) [address] unknown) [place] [address] (unknown) (no (unknown) (unknown) [phone] (units (unk nown) date) unknown) (unknown) (no (unknown) (unknown) Medical History (units (unknown) date) (Updated 07/24/22 unknown) @ 12:17 by Rosa Delgado RN) (unknown) (no (unknown) (unknown) Narrative (units (unkn own) date) unknown) (unknown) (no (unknown) (unknown) No history of (units ( unknown) date) previous surgery unknown) (unknown) (no (unknown) (unknown) Operation Date: (units (unknown) date) 07/30/22 07:45 unknown) (unknown) (no (unknown) (unknown) Osteoarthritis (units (unknown) date) unknown) (unknown) (no (unknown) (unknown) Oxygen Delivery (units (unknown) date) Method Room Air unknown) (unknown) (no (unknown) (unknown) Oxygen Flow Rate (units (unknown) date) 0 0 unknown) (unknown) (no (unknown) (unknown) Oxygen Flow Rate (units (unknown) date) 0 unknown) (unknown) (no (unknown) (unknown) PFSH (units (unkno wn) date) unknown) (unknown) (no (unknown) (unknown) Patient is up (units ( unknown) date) sitting in his unknown) chair with 2 family members including his at (unknown) (no (unknown) (unknown) Patient: (units (unkno wn) date) Adilene Martinez unknown) A MR#: (unknown) (no (unknown) (unknown) Postoperative (units ( unknown) date) unknown) (unknown) (no (unknown) (unknown) Procedures (units (unk nown) date) unknown) (unknown) (no (unknown) (unknown) Procedures: (units (un known) date) unknown) (unknown) (no (unknown) (unknown) Progress Note (units ( unknown) date) unknown) (unknown) (no (unknown) (unknown) Provider: (units (unkn own) date) Rona Fisher unknown) (unknown) (no (unknown) (unknown) Pulse Oximetry (units (unknown) date) 96 97 98 unknown) (unknown) (no (unknown) (unknown) Pulse Oximetry (units (unknown) date) 99 99 unknown) (unknown) (no (unknown) (unknown) Pulse Rate 55 L (units (unknown) date) 56 L 54 L unknown) (unknown) (no (unknown) (unknown) Pulse Rate 57 L (units (unknown) date) 62 unknown) (unknown) (no (unknown) (unknown) Respiratory Rate (units (unknown) date) 16 16 20 unknown) (unknown) (no (unknown) (unknown) Respiratory Rate (units (unknown) date) 19 20 unknown) (unknown) (no (unknown) (unknown) Signed By: (units (unk nown) date) unknown) (unknown) (no (unknown) (unknown) Smoking Status: (units (unknown) date) Former smoker unknown) (unknown) (no (unknown) (unknown) Social History (units (unknown) date) unknown) (unknown) (no (unknown) (unknown) Subjective (units (unk nown) date) unknown) (unknown) (no (unknown) (unknown) Surgical History (units (unknown) date) (Updated 07/24/22 unknown) @ 12:11 by Rosa Delgado RN) (unknown) (no (unknown) (unknown) Temperature 97.2 (units (unknown) date) F L 96.7 F L 96.7 unknown) F L (unknown) (no (unknown) (unknown) Temperature 97.3 (units (unknown) date) F L 97.8 F unknown) (unknown) (no (unknown) (unknown) Time Patient (units (u nknown) date) Seen: 16:00 unknown) (unknown) (no (unknown) (unknown) Vital Signs (units (un known) date) unknown) (unknown) (no (unknown) (unknown) alcohol intake: (units (unknown) date) current unknown) (unknown) (no (unknown) (unknown) and down the (units (u nknown) date) hallway multiple unknown) times and do stairs. He is eager to go home (unknown) (no (unknown) (unknown) bedside. He does (units (unknown) date) not complain of unknown) any, states his lower extremities are still a (unknown) (no (unknown) (unknown) household (units (unkn own) date) members: spouse unknown) (unknown) (no (unknown) (unknown) little bit numb. (units (unknown) date) He has up to work unknown) with physical therapy he was able to walk up (unknown) (no (unknown) (unknown) once he has (units (un known) date) urinated without unknown) difficulty. (unknown) (no (unknown) (unknown) p Total Hip (units (un known) date) Arthroplasty/Ante unknown) rior Approach Right Priti Janell Portillo MD (unknown) (no (unknown) (unknown) soft, (units (unkno wn) date) compressible, unknown) nontender with no palpable cords or masses. (unknown) (no (unknown) (unknown) today. Postop (units ( unknown) date) medications were unknown) prescribed at preop appointment. November discharge Result panel 43 (unknown) (no (unknown) (unknown) (no value) (units (unk nown) date) unknown) (unknown) (no (unknown) (unknown) (1) S/P total (units ( unknown) date) right hip unknown) arthroplasty: (unknown) (no (unknown) (unknown) (past 8 hours): (units (unknown) date) unknown) (unknown) (no (unknown) (unknown) 07/30/22 192 (units ( unknown) date) unknown) (unknown) (no (unknown) (unknown) 07/30/22 (units (unkno wn) date) unknown) (unknown) (no (unknown) (unknown) 11:02 07/30/22 (units (unknown) date) unknown) (unknown) (no (unknown) (unknown) 11:20 07/30/22 (units (unknown) date) unknown) (unknown) (no (unknown) (unknown) 11:50 (units (unkno wn) date) unknown) (unknown) (no (unknown) (unknown) 12:20 07/30/22 (units (unknown) date) unknown) (unknown) (no (unknown) (unknown) 13:20 (units (unkno wn) date) unknown) (unknown) (no (unknown) (unknown) Actual Procedure (units (unknown) date) Side Surgeon unknown) (unknown) (no (unknown) (unknown) Age/Sex: 86 / M (units (unknown) date) unknown) (unknown) (no (unknown) (unknown) Assessment + (units (u nknown) date) Plan Post-op unknown) (unknown) (no (unknown) (unknown) Assessment and (units (unknown) date) Plan narrative: unknown) (unknown) (no (unknown) (unknown) Assessment and (units (unknown) date) plan unknown) (unknown) (no (unknown) (unknown) Awake, alert, (units ( unknown) date) and oriented. unknown) Strength intact to lower extremities. Right calf (unknown) (no (unknown) (unknown) Blood Pressure (units (unknown) date) 100/41 L 109/45 L unknown) 114/49 L (unknown) (no (unknown) (unknown) Blood Pressure (units (unknown) date) 112/52 L 122/56 L unknown) (unknown) (no (unknown) (unknown) COVID-19 virus (units (unknown) date) infection unknown) (unknown) (no (unknown) (unknown) : 1935 (units (unknown) date) Acct:[id number] unknown) (unknown) (no (unknown) (unknown) Date Patient (units (u nknown) date) Seen: 07/30/22 unknown) (unknown) (no (unknown) (unknown) Date of Service: (units (unknown) date) 07/30/22 unknown) (unknown) (no (unknown) (unknown) Enlarged (units (unkno wn) date) prostate unknown) (unknown) (no (unknown) (unknown) Exam Narrative: (units (unknown) date) unknown) (unknown) (no (unknown) (unknown) Exam (units (unkno wn) date) unknown) (unknown) (no (unknown) (unknown) Interval (units (unkno wn) date) history: unknown) (unknown) (no (unknown) (unknown) [facility] (units (unknown) date) [address] unknown) [place] [address] (unknown) (no (unknown) (unknown) [id number] (units (unk nown) date) unknown) (unknown) (no (unknown) (unknown) Medical History (units (unknown) date) (Reviewed unknown) 07/30/22 @ 19:21 by Rona Fisehr PA-C) (unknown) (no (unknown) (unknown) Narrative (units (unkn own) date) unknown) (unknown) (no (unknown) (unknown) No history of (units ( unknown) date) previous surgery unknown) (unknown) (no (unknown) (unknown) Operation Date: (units (unknown) date) 07/30/22 07:45 unknown) (unknown) (no (unknown) (unknown) Osteoarthritis (units (unknown) date) unknown) (unknown) (no (unknown) (unknown) Oxygen Delivery (units (unknown) date) Method Room Air unknown) (unknown) (no (unknown) (unknown) Oxygen Flow Rate (units (unknown) date) 0 0 unknown) (unknown) (no (unknown) (unknown) Oxygen Flow Rate (units (unknown) date) 0 unknown) (unknown) (no (unknown) (unknown) PFSH (units (unkno wn) date) unknown) (unknown) (no (unknown) (unknown) Patient is POD#0 (units (unknown) date) status post right unknown) total hip arthroplasty anterior approach. He (unknown) (no (unknown) (unknown) Patient is up (units ( unknown) date) sitting in his unknown) chair with 2 family members including his at (unknown) (no (unknown) (unknown) Patient: (units (unkno wn) date) Adilene Martinez unknown) A MR#: (unknown) (no (unknown) (unknown) Postoperative (units ( unknown) date) day: 0 unknown) (unknown) (no (unknown) (unknown) Postoperative (units ( unknown) date) plan: routine unknown) post-op care (unknown) (no (unknown) (unknown) Postoperative (units ( unknown) date) status: doing unknown) well (unknown) (no (unknown) (unknown) Postoperative (units ( unknown) date) unknown) (unknown) (no (unknown) (unknown) Procedures (units (unk nown) date) unknown) (unknown) (no (unknown) (unknown) Procedures: (units (un known) date) unknown) (unknown) (no (unknown) (unknown) Progress Note (units ( unknown) date) unknown) (unknown) (no (unknown) (unknown) Provider: (units (unkn own) date) Rona Fisher unknown) (unknown) (no (unknown) (unknown) Pulse Oximetry (units (unknown) date) 96 97 98 unknown) (unknown) (no (unknown) (unknown) Pulse Oximetry (units (unknown) date) 99 99 unknown) (unknown) (no (unknown) (unknown) Pulse Rate 55 L (units (unknown) date) 56 L 54 L unknown) (unknown) (no (unknown) (unknown) Pulse Rate 57 L (units (unknown) date) 62 unknown) (unknown) (no (unknown) (unknown) Respiratory Rate (units (unknown) date) 16 16 20 unknown) (unknown) (no (unknown) (unknown) Respiratory Rate (units (unknown) date) 19 20 unknown) (unknown) (no (unknown) (unknown) Signed (units (unkno wn) date) By:<Electronicall unknown) y signed by Rona Fisher> (unknown) (no (unknown) (unknown) Smoking Status: (units (unknown) date) Former smoker unknown) (unknown) (no (unknown) (unknown) Social History (units (unknown) date) (Reviewed unknown) 07/30/22 @ 19:21 by Rona Fisher PA-C) (unknown) (no (unknown) (unknown) Subjective (units (unk nown) date) unknown) (unknown) (no (unknown) (unknown) Surgical History (units (unknown) date) (Reviewed unknown) 07/30/22 @ 19:21 by Rona Fisher PA-C) (unknown) (no (unknown) (unknown) Temperature 97.2 (units (unknown) date) F L 96.7 F L 96.7 unknown) F L (unknown) (no (unknown) (unknown) Temperature 97.3 (units (unknown) date) F L 97.8 F unknown) (unknown) (no (unknown) (unknown) Time Patient (units (u nknown) date) Seen: 16:00 unknown) (unknown) (no (unknown) (unknown) Vital Signs (units (un known) date) unknown) (unknown) (no (unknown) (unknown) alcohol intake: (units (unknown) date) current unknown) (unknown) (no (unknown) (unknown) and MiraLax at (units (unknown) date) home. Follow-up unknown) with [facility] at scheduled appointment with Dr. Portillo (unknown) (no (unknown) (unknown) and down the (units (u nknown) date) hallway multiple unknown) times and do stairs. He is eager to go home (unknown) (no (unknown) (unknown) bedside. He does (units (unknown) date) not complain of unknown) any, states his lower extremities are still a (unknown) (no (unknown) (unknown) dressing CDI. (units ( unknown) date) unknown) (unknown) (no (unknown) (unknown) household (units (unkn own) date) members: spouse unknown) (unknown) (no (unknown) (unknown) is doing very (units ( unknown) date) well and has unknown) worked with physical therapy. Had no trouble walking (unknown) (no (unknown) (unknown) little bit numb. (units (unknown) date) He has up to work unknown) with physical therapy he was able to walk up (unknown) (no (unknown) (unknown) on 08/14/2022. (units (unknown) date) unknown) (unknown) (no (unknown) (unknown) once he has (units (un known) date) urinated without unknown) difficulty. (unknown) (no (unknown) (unknown) outpatient. Pain (units (unknown) date) is well unknown) controlled, oxycodone was prescribed to him at (unknown) (no (unknown) (unknown) p Total Hip (units (un known) date) Arthroplasty/Ante unknown) rior Approach Right Priti Janell Portillo MD (unknown) (no (unknown) (unknown) preoperative (units (un known) date) appointment unknown) -patient stated he already had aspirin, Tylenol, Aleve, (unknown) (no (unknown) (unknown) soft, (units (unkno wn) date) compressible, unknown) nontender with no palpable cords or masses. Intraoperative (unknown) (no (unknown) (unknown) today. Postop (units ( unknown) date) medications were unknown) prescribed at preop appointment. November discharge (unknown) (no (unknown) (unknown) up and down the (units (unknown) date) halls and doing unknown) stairs. He will continue physical therapy as Social History date description facility 2022-07-30 00:00 Ex-smoker ([facility] Vital Signs date measurement value units 2022-07-30 00:00 BMI 23.4 kg/m2 2022-07-30 00:00 BP_diastolic 56 mmHg 2022-07-30 00:00 BP_systolic 122 mmHg 2022-07-30 00:00 heart_rate 62 /min 2022-07-30 00:00 height_metric 175.26 cm 2022-07-30 00:00 height_standard 69 in 2022-07-30 00:00 o2_saturation 99 % 2022-07-30 00:00 respiration_rate 20 /min 2022-07-30 00:00 temperature_metric 36.56 C 2022-07-30 00:00 temperature_standard 97.8 F 2022-07-30 00:00 weight_metric 72.12 kg 2022-07-30 00:00 weight_standard 159 lb
[2022-08-01 18:46] LABS: B. PARAPERTUSSIS- RESP PCR PAN NOT DETECTED; B. PERTUSSIS- RESP PCR PANEL NOT DETECTED; C. PNEUMONIAE- RESP PCR PANEL NOT DETECTED; CORONAVIRUS 229E-RESP PCR NOT DETECTED; CORONAVIRUS HKU1-RESP PCR NOT DETECTED; CORONAVIRUS NL63-RESP PCR NOT DETECTED; CORONAVIRUS OC43-RESP PCR NOT DETECTED; HUMAN METAPNEUMOVIRUS NOT DETECTED; INFLUENZA A- RESP PCR PANEL NOT DETECTED; INFLUENZA B - RESP PCR PANEL NOT DETECTED; M. PNEUMONIAE- RESP PCR PANEL NOT DETECTED; PARAINFLUENZA VIRUS 1 NOT DETECTED; PARAINFLUENZA VIRUS 2 NOT DETECTED; PARAINFLUENZA VIRUS 3 NOT DETECTED; PARAINFLUENZA VIRUS 4 NOT DETECTED; RHINOVIRUS/ENTEROVIRUS NOT DETECTED; RSV- RESP PCR PANEL NOT DETECTED; SARS-CoV-2 -RESP PCR PANEL NOT DETECTED
[2022-08-01 18:47] LABS: ALBUMIN 3.1 g/dL (3.2-5.5); ALBUMIN/GLOBULIN RATIO 1.2 (1.0-2.2); BILIRUBIN,TOTAL 1.2 mg/dL (0.2-1.0); CALCIUM 8.2 mg/dL (8.5-10.3); CREATININE 0.6 mg/dL (0.6-1.2); POTASSIUM 3.4 mmol/L (3.5-5.0); TOTAL PROTEIN 5.7 g/dL (6.7-8.2)
[2022-08-01] MEDS ORDERED: SODIUM CHLORIDE 0.9% 1,000 ML IV SCH (19:00)
--- NOTE | 2022-08-01 19:07 | XRAY Report ---
PROCEDURE: Chest for Line Placement INDICATIONS: NG placement verification TECHNIQUE: One view of the chest was acquired. COMPARISON: None. FINDINGS: Surgical changes and devices: Nasogastric tube is seen with the tip below the diaphragm in the stoma ch. Lungs and pleura: Airspace opacities in the left retrocardiac lung. Mediastinum: Heart size is enlarged. Bones and chest wall: No suspicious bony lesions. Overlying soft tissues appear unremarkable. IMPRESSION: 1. Nasogastric tube appears well-positioned. 2. Airspace opacities in the left retrocardiac lung. This could be due to the coronal projection. Rec ommend PA and lateral view if clinically indicated. Reviewed by: Fran Berg on 08/01/2022 7:05 PM PST Approved by: Fran Berg on 08/01/2022 7:05 PM PST Station ID: [id number]
[2022-08-01 19:12] LABS: INR 1.1 (0.8-1.2); PT - PROTHROMBIN TIME 12.3 secs (9.9-12.6)
[2022-08-01] MEDS ORDERED: HYDROmorphone 1 MG/ML CARPUJECT IVP PRN (19:15)
[2022-08-01] MEDS ORDERED: HALOPERIDOL 5 MG/ML VIAL IVP PRN (19:15)
[2022-08-01] MEDS ORDERED: metroNIDAZOLE 500 MG/100 ML 500 MG/100 ML BAG IV SCH (20:00)
[2022-08-01] MEDS: PANTOPRAZOLE 40 MG VIAL IVP SCH (20:23)
[2022-08-01] MEDS: metroNIDAZOLE 500 MG/100 ML 500 MG/100 ML BAG IV SCH (20:23)
[2022-08-01 23:18] LABS: CALCIUM, IONIZED 1.04 mmol/L (1.15-1.33); VBG PH 7.512 (7.31-7.41)
[2022-08-01] MEDS: HYDROmorphone 1 MG/ML CARPUJECT IVP PRN (23:31)
[2022-08-01 23:39] LABS: MAGNESIUM 1.5 mg/dL (1.7-2.8); PHOSPHORUS 2.4 mg/dL (2.5-4.6)
[2022-08-01] MEDS ORDERED: MAGNESIUM SULFATE 2 GRAM 2 GM/50 ML BAG IV ONE (23:43)
[2022-08-01] MEDS ORDERED: CALCIUM GLUC 1,000MG/50ML-NACL 1,000 MG/50 ML BAG IV ONE (23:43)
[2022-08-01] MEDS ORDERED: SODIUM PHOSPHATE 15 MMOL in SODIUM CHLORIDE 0.9% 250 ML IV ONE (23:44)
[2022-08-01] MEDS: AMPICILLIN/SULBACTAM 3 GM in SODIUM CHLORIDE 0.9% MINIBAG 100 ML IV SCH (23:47)
[2022-08-02] MEDS: SODIUM CHLORIDE FLUSH 0.9% 10 ML SYRINGE IVP SCH ×4 (00:07→23:42)
[2022-08-02] MEDS ORDERED: ACETAMINOPHEN 325 MG TABLET PO PRN (00:41)
[2022-08-02] MEDS ORDERED: ACETAMINOPHEN 1,000 MG/100 ML 1,000 MG/100 ML BAG IV PRN (00:44)
[2022-08-02] MEDS: LORazepam 2 MG/ML VIAL IVP PRN ×3 (02:32→23:41)
[2022-08-02] MEDS: SODIUM CHLORIDE 0.9% 1,000 ML IV SCH ×2 (05:15→21:18)
[2022-08-02 05:37] LABS: BASOPHILS % (AUTO) 0.4 %; EOSINOPHILS # (AUTO) 0.1 10^3/uL (0.0-0.7); EOSINOPHILS % (AUTO) 0.8 %; HCT - HEMATOCRIT 26.7 % (42.0-52.0); HGB - HEMOGLOBIN 9.4 g/dL (14.0-18.0); LYMPHOCYTES # (AUTO) 0.9 10^3/uL (1.5-3.5); LYMPHOCYTES % (AUTO) 10.1 %; MEAN CORPUSCULAR HEMOGLOBIN 31.9 pg (27.0-31.0); MEAN CORPUSCULAR HGB CONC 35.2 g/dL (32.0-36.0); MEAN CORPUSCULAR VOLUME 90.5 fL (80.0-94.0); MEAN PLATELET VOLUME 10.7 fL (7.4-11.4); MONOCYTES # (AUTO) 0.9 10^3/uL (0.0-1.0); MONOCYTES % (AUTO) 9.6 %; NEUTROPHILS # (AUTO) 7.3 10^3/uL (1.5-6.6); NEUTROPHILS % (AUTO) 78.5 %; PLT - PLATELET COUNT 201 10^3/uL (130-450); RED BLOOD COUNT 2.95 10^6/uL (4.70-6.10); RED CELL DISTRIBUTION WIDTH 11.9 % (12.0-15.0); WHITE BLOOD COUNT 9.3 x10^3/uL (4.8-10.8)
[2022-08-02] MEDS: HYDROmorphone 1 MG/ML CARPUJECT IVP PRN (05:46)
[2022-08-02] MEDS: AMPICILLIN/SULBACTAM 3 GM in SODIUM CHLORIDE 0.9% MINIBAG 100 ML IV SCH ×4 (05:46→23:42)
[2022-08-02 05:48] LABS: ALBUMIN 2.4 g/dL (3.2-5.5); BILIRUBIN,DIRECT 0.2 mg/dL (0.1-0.5); BILIRUBIN,TOTAL 0.9 mg/dL (0.2-1.0); CREATININE 0.8 mg/dL (0.6-1.2); MAGNESIUM 1.7 mg/dL (1.7-2.8); PHOSPHORUS 4.1 mg/dL (2.5-4.6); POTASSIUM 3.5 mmol/L (3.5-5.0)
[2022-08-02] MEDS ORDERED: MAGNESIUM SULFATE 2 GRAM 2 GM/50 ML BAG IV ONE (05:52)
[2022-08-02] MEDS: POTASSIUM CHLOR 10 MEQ/100 ML 10 MEQ/100 ML BAG IV SCH ×6 (06:54→18:30)
[2022-08-02] MEDS: metroNIDAZOLE 500 MG/100 ML 500 MG/100 ML BAG IV SCH ×2 (08:12→19:35)
--- NOTE | 2022-08-02 08:40 | XRAY Report ---
PROCEDURE: Chest 1 View X-Ray INDICATIONS: F/U retrocardiac infiltrate TECHNIQUE: One view of the chest was acquired. COMPARISON: X-ray chest and CT abdomen and pelvis 08/01/2022 FINDINGS: Surgical changes and devices: Nasogastric tube is unchanged. Lungs and pleura: Less prominent appearance of retrocardiac opacity. Mild increased appearance of ri ght basilar opacity. Mediastinum: Mediastinal contours appear normal. Heart size is normal. Bones and chest wall: No suspicious bony lesions. Overlying soft tissues appear unremarkable. IMPRESSION: No definitive retrocardiac opacity. Slight appearance of right basilar opacity. This could represent atelectasis, dependent edema or pote ntially developing airspace disease such as pneumonia. Reviewed by: Daniela Barnett MD on 08/02/2022 8:39 AM PST Approved by: Daniela Barnett MD on 08/02/2022 8:39 AM [facility] Station ID: [id number]
[2022-08-02] MEDS: PANTOPRAZOLE 40 MG VIAL IVP SCH (08:52)
[2022-08-02] MEDS: SODIUM CHLORIDE FLUSH 0.9% 10 ML SYRINGE IVP PRN ×2 (08:53→12:20)
[2022-08-02] MEDS ORDERED: ENOXAPARIN 40 MG/0.4 ML SYRINGE SUBQ SCH (09:00)
[2022-08-02] MEDS ORDERED: HALOPERIDOL 5 MG/ML VIAL IVP PRN (11:40)
[2022-08-02] MEDS: ACETAMINOPHEN 325 MG TABLET PO PRN ×2 (12:08→20:34)
--- NOTE | 2022-08-02 12:46 | PROVIDER PROGRESS NOTE ---
Subjective - Subjective Pt reports feeling: Improved (He is awake, oriented x3. He complains of pain in his throat (has NG tube in), and still has hiccups. No R hip pain whatsoever, he says.) Subjective: He is more alert, he is not combative or agitated. Complains of pain in his throat (still has NG tube in). Objective - Vital Signs/Intake & Output Reviewed Vital Signs: Yes Vital Signs: Vital Signs Temp Pulse Resp BP Pulse Ox 08/02/22 12:00 36.8 C 75 19 116/45 L 98 08/02/22 11:00 74 19 109/40 L 100 08/02/22 10:00 71 16 97/46 L 98 08/02/22 09:00 73 15 98/44 L 98 Intake & Output: Intake & Output 07/30/22 07/31/22 08/01/22 08/02/22 23:59 23:59 23:59 23:59 Intake Total 4201.349 0607.5 Output Total 1190 692 Balance 207.949 448.5 - Objective General Appearance: positive: No acute distress, Lethargic (Is awake and s peaking but falls asleep midsentence then startles himself and appears to pull at his close when he awakened) Eyes Bilateral: positive: Normal inspection ENT: positive: ENT inspection nml, No signs of dehydration Neck: positive: Nml inspection, No JVD Respiratory: positive: No respiratory distress, Breath sounds nml (anteriorly) Cardiovascular: positive: Regular rate & rhythm, No murmur Abdomen: positive: Non-tender, No distention Skin: positive: Warm, Dry Extremities: positive: No pedal edema, Other (Bandage over R hip, clean and dry) Neurologic/Psychiatric: positive: Oriented x3, Other (He is lethargic, falls asleep during a sentence. Non-focal. No tremor.) - Lab Results Fish Bones: 08/02/22 05:15 08/02/22 17:15 Other Labs: Lab Results x24hrs 08/02/22 08/02/22 08/02/22 Range/Units 10:57 05:15 05:15 WBC 9.3 (4.8-10.8) x10^3/uL RBC 2.95 L (4.70-6.10) 10^6/uL Hgb 9.4 L (14.0-18.0) g/dL Hct 26.7 L (42.0-52.0) % MCV 90.5 (80.0-94.0) fL MCH 31.9 H (27.0-31.0) pg MCHC 35.2 (32.0-36.0) g/dL RDW 11.9 L (12.0-15.0) % Plt Count 201 (130-450) 10^3/uL MPV 10.7 (7.4-11.4) fL Neut # (Auto) 7.3 H (1.5-6.6) 10^3/uL Lymph # (Auto) 0.9 L (1.5-3.5) 10^3/uL [place] # (Auto) 0.9 (0.0-1.0) 10^3/uL Eos # (Auto) 0.1 (0.0-0.7) 10^3/uL Baso # (Auto) 0.0 (0.0-0.1) 10^3/uL Absolute Nucleated RBC 0.00 x10^3/uL Nucleated RBC % 0.0 /100WBC PT (9.9-12.6) secs INR (0.8-1.2) VBG pH (7.31-7.41) Ionized Calcium (1.15-1.33) mmol/L Sodium 122 L 124 L (135-145) mmol/L Potassium 3.5 (3.5-5.0) mmol/L Chloride 89 L (101-111) mmol/L Carbon Dioxide 25 (21-32) mmol/L Anion Gap 10.0 (6-13) BUN 16 (6-20) mg/dL Creatinine 0.8 (0.6-1.2) mg/dL Estimated GFR (MDRD) 92 (>89) Glucose 109 H (70-100) mg/dL Lactic Acid (0.5-2.2) mmol/L Calcium 8.0 L (8.5-10.3) mg/dL Phosphorus 4.1 (2.5-4.6) mg/dL Magnesium 1.7 (1.7-2.8) mg/dL Total Bilirubin 0.9 (0.2-1.0) mg/dL Direct Bilirubin 0.2 (0.1-0.5) mg/dL AST 36 (10-42) IU/L ALT 25 (10-60) IU/L Alkaline Phosphatase 60 (42-121) IU/L Total Protein 5.0 L (6.7-8.2) g/dL Albumin 2.4 L (3.2-5.5) g/dL Globulin 2.6 (2.1-4.2) g/dL Albumin/Globulin Ratio (1.0-2.2) Lipase (22-51) U/L Urine Color Urine Clarity (CLEAR) Urine pH (5.0-7.5) PH Ur Specific [place] (1.002-1.030) Urine Protein (NEGATIVE) mg/dL Urine Glucose (UA) (NEGATIVE) mg/dL Urine Ketones (NEGATIVE) mg/dL Urine Occult Blood (NEGATIVE) Urine Nitrite (NEGATIVE) Urine Bilirubin (NEGATIVE) Urine Urobilinogen (NORMAL) E.U./dL Ur Leukocyte Esterase (NEGATIVE) Urine RBC (0-5) /HPF Urine WBC (0-3) /HPF Ur Squamous Epith Cells (<= Few) Urine Bacteria (None Seen) /HPF Ur Microscopic Review Urine Culture Comments Nasal Adenovirus (PCR) Nasal B. parapertussis DNA (PCR) Nasal Coronavir 229E PCR Nasal Coronavir HKU1 PCR Nasal Coronavir NL63 PCR Nasal Coronavir OC43 PCR Nasal Enterovir/Rhinovir PCR Nasal Influenza B PCR Nasal Influenza A PCR Nasal Parainfluen 1 PCR Nasal Parainfluen 2 PCR Nasal Parainfluen 3 PCR Nasal Parainfluen 4 PCR Nasal RSV (PCR) Nasal Screen MRSA (PCR) (NEGATIVE) Nasal B.pertussis DNA PCR Nasal C.pneumoniae (PCR) [place] Human Metapneumo PCR Nasal M.pneumoniae (PCR) Nasal SARS-CoV-2 (PCR) Urine Opiates Screen (NEGATIVE) Ur Oxycodone Screen (NEGATIVE) Urine Methadone Screen (NEGATIVE) Ur Propoxyphene Screen (NEGATIVE) Ur Barbiturates Screen (NEGATIVE) Ur Tricyclics Screen (NEGATIVE) Ur Phencyclidine Scrn (NEGATIVE) Ur Amphetamine Screen (NEGATIVE) U Methamphetamines Scrn (NEGATIVE) U Benzodiazepines Scrn (NEGATIVE) Urine Cocaine Screen (NEGATIVE) U Cannabinoids Screen (NEGATIVE) Ethyl Alcohol mg/dL 08/01/22 08/01/22 08/01/22 Range/Units 23:10 23:10 23:10 WBC (4.8-10.8) x10^3/uL RBC (4.70-6.10) 10^6/uL Hgb (14.0-18.0) g/dL Hct (42.0-52.0) % MCV (80.0-94.0) fL MCH (27.0-31.0) pg MCHC (32.0-36.0) g/dL RDW (12.0-15.0) % Plt Count (130-450) 10^3/uL MPV (7.4-11.4) fL Neut # (Auto) (1.5-6.6) 10^3/uL Lymph # (Auto) (1.5-3.5) 10^3/uL [place] # (Auto) (0.0-1.0) 10^3/uL Eos # (Auto) (0.0-0.7) 10^3/uL Baso # (Auto) (0.0-0.1) 10^3/uL Absolute Nucleated RBC x10^3/uL Nucleated RBC % /100WBC PT (9.9-12.6) secs INR (0.8-1.2) VBG pH 7.512 H (7.31-7.41) Ionized Calcium 1.04 L (1.15-1.33) mmol/L Sodium 124 L (135-145) mmol/L Potassium 4.0 (3.5-5.0) mmol/L Chloride (101-111) mmol/L Carbon Dioxide (21-32) mmol/L Anion Gap (6-13) BUN (6-20) mg/dL Creatinine (0.6-1.2) mg/dL Estimated GFR (MDRD) (>89) Glucose (70-100) mg/dL Lactic Acid (0.5-2.2) mmol/L Calcium (8.5-10.3) mg/dL Phosphorus 2.4 L (2.5-4.6) mg/dL Magnesium 1.5 L (1.7-2.8) mg/dL Total Bilirubin (0.2-1.0) mg/dL Direct Bilirubin (0.1-0.5) mg/dL AST (10-42) IU/L ALT (10-60) IU/L Alkaline Phosphatase (42-121) IU/L Total Protein (6.7-8.2) g/dL Albumin (3.2-5.5) g/dL Globulin (2.1-4.2) g/dL Albumin/Globulin Ratio (1.0-2.2) Lipase (22-51) U/L Urine Color Urine Clarity (CLEAR) Urine pH (5.0-7.5) PH Ur Specific [place] (1.002-1.030) Urine Protein (NEGATIVE) mg/dL Urine Glucose (UA) (NEGATIVE) mg/dL Urine Ketones (NEGATIVE) mg/dL Urine Occult Blood (NEGATIVE) Urine Nitrite (NEGATIVE) Urine Bilirubin (NEGATIVE) Urine Urobilinogen (NORMAL) E.U./dL Ur Leukocyte Esterase (NEGATIVE) Urine RBC (0-5) /HPF Urine WBC (0-3) /HPF Ur Squamous Epith Cells (<= Few) Urine Bacteria (None Seen) /HPF Ur Microscopic Review Urine Culture Comments Nasal Adenovirus (PCR) Nasal B. parapertussis DNA (PCR) Nasal Coronavir 229E PCR Nasal Coronavir HKU1 PCR Nasal Coronavir NL63 PCR Nasal Coronavir OC43 PCR Nasal Enterovir/Rhinovir PCR Nasal Influenza B PCR Nasal Influenza A PCR Nasal Parainfluen 1 PCR Nasal Parainfluen 2 PCR Nasal Parainfluen 3 PCR Nasal Parainfluen 4 PCR Nasal RSV (PCR) Nasal Screen MRSA (PCR) (NEGATIVE) Nasal B.pertussis DNA PCR Nasal C.pneumoniae (PCR) [place] Human Metapneumo PCR Nasal M.pneumoniae (PCR) Nasal SARS-CoV-2 (PCR) Urine Opiates Screen (NEGATIVE) Ur Oxycodone Screen (NEGATIVE) Urine Methadone Screen (NEGATIVE) Ur Propoxyphene Screen (NEGATIVE) Ur Barbiturates Screen (NEGATIVE) Ur Tricyclics Screen (NEGATIVE) Ur Phencyclidine Scrn (NEGATIVE) Ur Amphetamine Screen (NEGATIVE) U Methamphetamines Scrn (NEGATIVE) U Benzodiazepines Scrn (NEGATIVE) Urine Cocaine Screen (NEGATIVE) U Cannabinoids Screen (NEGATIVE) Ethyl Alcohol mg/dL 08/01/22 08/01/22 08/01/22 Range/Units 19:55 18:30 18:30 WBC (4.8-10.8) x10^3/uL RBC (4.70-6.10) 10^6/uL Hgb (14.0-18.0) g/dL Hct (42.0-52.0) % MCV (80.0-94.0) fL MCH (27.0-31.0) pg MCHC (32.0-36.0) g/dL RDW (12.0-15.0) % Plt Count (130-450) 10^3/uL MPV (7.4-11.4) fL Neut # (Auto) (1.5-6.6) 10^3/uL Lymph # (Auto) (1.5-3.5) 10^3/uL [place] # (Auto) (0.0-1.0) 10^3/uL Eos # (Auto) (0.0-0.7) 10^3/uL Baso # (Auto) (0.0-0.1) 10^3/uL Absolute Nucleated RBC x10^3/uL Nucleated RBC % /100WBC PT 12.3 (9.9-12.6) secs INR 1.1 (0.8-1.2) VBG pH (7.31-7.41) Ionized Calcium (1.15-1.33) mmol/L Sodium 121 L (135-145) mmol/L Potassium 3.4 L (3.5-5.0) mmol/L Chloride 84 L (101-111) mmol/L Carbon Dioxide 28 (21-32) mmol/L Anion Gap 9.0 (6-13) BUN 18 (6-20) mg/dL Creatinine 0.6 (0.6-1.2) mg/dL Estimated GFR (MDRD) 128 (>89) Glucose 106 H (70-100) mg/dL Lactic Acid (0.5-2.2) mmol/L Calcium 8.2 L (8.5-10.3) mg/dL Phosphorus (2.5-4.6) mg/dL Magnesium (1.7-2.8) mg/dL Total Bilirubin 1.2 H (0.2-1.0) mg/dL Direct Bilirubin (0.1-0.5) mg/dL AST 46 H (10-42) IU/L ALT 32 (10-60) IU/L Alkaline Phosphatase 72 (42-121) IU/L Total Protein 5.7 L (6.7-8.2) g/dL Albumin 3.1 L (3.2-5.5) g/dL Globulin 2.6 (2.1-4.2) g/dL Albumin/Globulin Ratio 1.2 (1.0-2.2) Lipase (22-51) U/L Urine Color Urine Clarity (CLEAR) Urine pH (5.0-7.5) PH Ur Specific [place] (1.002-1.030) Urine Protein (NEGATIVE) mg/dL Urine Glucose (UA) (NEGATIVE) mg/dL Urine Ketones (NEGATIVE) mg/dL Urine Occult Blood (NEGATIVE) Urine Nitrite (NEGATIVE) Urine Bilirubin (NEGATIVE) Urine Urobilinogen (NORMAL) E.U./dL Ur Leukocyte Esterase (NEGATIVE) Urine RBC (0-5) /HPF Urine WBC (0-3) /HPF Ur Squamous Epith Cells (<= Few) Urine Bacteria (None Seen) /HPF Ur Microscopic Review Urine Culture Comments Nasal Adenovirus (PCR) Nasal B. parapertussis DNA (PCR) Nasal Coronavir 229E PCR Nasal Coronavir HKU1 PCR Nasal Coronavir NL63 PCR Nasal Coronavir OC43 PCR Nasal Enterovir/Rhinovir PCR Nasal Influenza B PCR Nasal Influenza A PCR Nasal Parainfluen 1 PCR Nasal Parainfluen 2 PCR Nasal Parainfluen 3 PCR Nasal Parainfluen 4 PCR Nasal RSV (PCR) Nasal Screen MRSA (PCR) NEGATIVE (NEGATIVE) Nasal B.pertussis DNA PCR Nasal C.pneumoniae (PCR) [place] Human Metapneumo PCR Nasal M.pneumoniae (PCR) Nasal SARS-CoV-2 (PCR) Urine Opiates Screen (NEGATIVE) Ur Oxycodone Screen (NEGATIVE) Urine Methadone Screen (NEGATIVE) Ur Propoxyphene Screen (NEGATIVE) Ur Barbiturates Screen (NEGATIVE) Ur Tricyclics Screen (NEGATIVE) Ur Phencyclidine Scrn (NEGATIVE) Ur Amphetamine Screen (NEGATIVE) U Methamphetamines Scrn (NEGATIVE) U Benzodiazepines Scrn (NEGATIVE) Urine Cocaine Screen (NEGATIVE) U Cannabinoids Screen (NEGATIVE) Ethyl Alcohol mg/dL 08/01/22 08/01/22 08/01/22 Range/Units 18:30 17:50 17:39 WBC 9.8 (4.8-10.8) x10^3/uL RBC 3.45 L (4.70-6.10) 10^6/uL Hgb 10.8 L (14.0-18.0) g/dL Hct 30.6 L (42.0-52.0) % MCV 88.7 (80.0-94.0) fL MCH 31.3 H (27.0-31.0) pg MCHC 35.3 (32.0-36.0) g/dL RDW 11.7 L (12.0-15.0) % Plt Count 218 (130-450) 10^3/uL MPV 10.8 (7.4-11.4) fL Neut # (Auto) 8.0 H (1.5-6.6) 10^3/uL Lymph # (Auto) 1.0 L (1.5-3.5) 10^3/uL [place] # (Auto) 0.7 (0.0-1.0) 10^3/uL Eos # (Auto) 0.0 (0.0-0.7) 10^3/uL Baso # (Auto) 0.0 (0.0-0.1) 10^3/uL Absolute Nucleated RBC 0.00 x10^3/uL Nucleated RBC % 0.0 /100WBC PT (9.9-12.6) secs INR (0.8-1.2) VBG pH (7.31-7.41) Ionized Calcium (1.15-1.33) mmol/L Sodium (135-145) mmol/L Potassium (3.5-5.0) mmol/L Chloride (101-111) mmol/L Carbon Dioxide (21-32) mmol/L Anion Gap (6-13) BUN (6-20) mg/dL Creatinine (0.6-1.2) mg/dL Estimated GFR (MDRD) (>89) Glucose (70-100) mg/dL Lactic Acid (0.5-2.2) mmol/L Calcium (8.5-10.3) mg/dL Phosphorus (2.5-4.6) mg/dL Magnesium (1.7-2.8) mg/dL Total Bilirubin (0.2-1.0) mg/dL Direct Bilirubin (0.1-0.5) mg/dL AST (10-42) IU/L ALT (10-60) IU/L Alkaline Phosphatase (42-121) IU/L Total Protein (6.7-8.2) g/dL Albumin (3.2-5.5) g/dL Globulin (2.1-4.2) g/dL Albumin/Globulin Ratio (1.0-2.2) Lipase (22-51) U/L Urine Color STRAW Urine Clarity CLEAR (CLEAR) Urine pH 7.0 (5.0-7.5) PH Ur Specific [place] <=1.005 (1.002-1.030) Urine Protein NEGATIVE (NEGATIVE) mg/dL Urine Glucose (UA) NEGATIVE (NEGATIVE) mg/dL Urine Ketones NEGATIVE (NEGATIVE) mg/dL Urine Occult Blood MODERATE H (NEGATIVE) Urine Nitrite NEGATIVE (NEGATIVE) Urine Bilirubin NEGATIVE (NEGATIVE) Urine Urobilinogen 0.2 (NORMAL) (NORMAL) E.U./dL Ur Leukocyte Esterase NEGATIVE (NEGATIVE) Urine RBC 6-10 H (0-5) /HPF Urine WBC 0-3 (0-3) /HPF Ur Squamous Epith Cells NONE SEEN (<= Few) Urine Bacteria Rare (None Seen) /HPF Ur Microscopic Review INDICATED Urine Culture Comments NOT INDICATED Nasal Adenovirus (PCR) NOT DETECTED Nasal B. parapertussis DNA (PCR) NOT DETECTED Nasal Coronavir 229E PCR NOT DETECTED Nasal Coronavir HKU1 PCR NOT DETECTED Nasal Coronavir NL63 PCR NOT DETECTED Nasal Coronavir OC43 PCR NOT DETECTED Nasal Enterovir/Rhinovir PCR NOT DETECTED Nasal Influenza B PCR NOT DETECTED Nasal Influenza A PCR NOT DETECTED Nasal Parainfluen 1 PCR NOT DETECTED Nasal Parainfluen 2 PCR NOT DETECTED Nasal Parainfluen 3 PCR NOT DETECTED Nasal Parainfluen 4 PCR NOT DETECTED Nasal RSV (PCR) NOT DETECTED Nasal Screen MRSA (PCR) (NEGATIVE) Nasal B.pertussis DNA PCR NOT DETECTED Nasal C.pneumoniae (PCR) NOT DETECTED [place] Human Metapneumo PCR NOT DETECTED Nasal M.pneumoniae (PCR) NOT DETECTED Nasal SARS-CoV-2 (PCR) NOT DETECTED Urine Opiates Screen NEGATIVE (NEGATIVE) Ur Oxycodone Screen NEGATIVE (NEGATIVE) Urine Methadone Screen NEGATIVE (NEGATIVE) Ur Propoxyphene Screen NEGATIVE (NEGATIVE) Ur Barbiturates Screen NEGATIVE (NEGATIVE) Ur Tricyclics Screen NEGATIVE (NEGATIVE) Ur Phencyclidine Scrn NEGATIVE (NEGATIVE) Ur Amphetamine Screen NEGATIVE (NEGATIVE) U Methamphetamines Scrn NEGATIVE (NEGATIVE) U Benzodiazepines Scrn NEGATIVE (NEGATIVE) Urine Cocaine Screen NEGATIVE (NEGATIVE) U Cannabinoids Screen NEGATIVE (NEGATIVE) Ethyl Alcohol mg/dL 08/01/22 08/01/22 08/01/22 Range/Units 14:16 14:16 14:16 WBC (4.8-10.8) x10^3/uL RBC (4.70-6.10) 10^6/uL Hgb (14.0-18.0) g/dL Hct (42.0-52.0) % MCV (80.0-94.0) fL MCH (27.0-31.0) pg MCHC (32.0-36.0) g/dL RDW (12.0-15.0) % Plt Count (130-450) 10^3/uL MPV (7.4-11.4) fL Neut # (Auto) (1.5-6.6) 10^3/uL Lymph # (Auto) (1.5-3.5) 10^3/uL [place] # (Auto) (0.0-1.0) 10^3/uL Eos # (Auto) (0.0-0.7) 10^3/uL Baso # (Auto) (0.0-0.1) 10^3/uL Absolute Nucleated RBC x10^3/uL Nucleated RBC % /100WBC PT 12.5 (9.9-12.6) secs INR 1.1 (0.8-1.2) VBG pH (7.31-7.41) Ionized Calcium (1.15-1.33) mmol/L Sodium 118 L* (135-145) mmol/L Potassium 4.0 (3.5-5.0) mmol/L Chloride 82 L (101-111) mmol/L Carbon Dioxide 25 (21-32) mmol/L Anion Gap 11.0 (6-13) BUN 21 H (6-20) mg/dL Creatinine 0.7 (0.6-1.2) mg/dL Estimated GFR (MDRD) 107 (>89) Glucose 126 H (70-100) mg/dL Lactic Acid 2.8 H (0.5-2.2) mmol/L Calcium 8.4 L (8.5-10.3) mg/dL Phosphorus (2.5-4.6) mg/dL Magnesium (1.7-2.8) mg/dL Total Bilirubin 1.2 H (0.2-1.0) mg/dL Direct Bilirubin (0.1-0.5) mg/dL AST 50 H (10-42) IU/L ALT 35 (10-60) IU/L Alkaline Phosphatase 73 (42-121) IU/L Total Protein 6.1 L (6.7-8.2) g/dL Albumin 3.2 (3.2-5.5) g/dL Globulin 2.9 (2.1-4.2) g/dL Albumin/Globulin Ratio 1.1 (1.0-2.2) Lipase 23 (22-51) U/L Urine Color Urine Clarity (CLEAR) Urine pH (5.0-7.5) PH Ur Specific [place] (1.002-1.030) Urine Protein (NEGATIVE) mg/dL Urine Glucose (UA) (NEGATIVE) mg/dL Urine Ketones (NEGATIVE) mg/dL Urine Occult Blood (NEGATIVE) Urine Nitrite (NEGATIVE) Urine Bilirubin (NEGATIVE) Urine Urobilinogen (NORMAL) E.U./dL Ur Leukocyte Esterase (NEGATIVE) Urine RBC (0-5) /HPF Urine WBC (0-3) /HPF Ur Squamous Epith Cells (<= Few) Urine Bacteria (None Seen) /HPF Ur Microscopic Review Urine Culture Comments Nasal Adenovirus (PCR) Nasal B. parapertussis DNA (PCR) Nasal Coronavir 229E PCR Nasal Coronavir HKU1 PCR Nasal Coronavir NL63 PCR Nasal Coronavir OC43 PCR Nasal Enterovir/Rhinovir PCR Nasal Influenza B PCR Nasal Influenza A PCR Nasal Parainfluen 1 PCR Nasal Parainfluen 2 PCR Nasal Parainfluen 3 PCR Nasal Parainfluen 4 PCR Nasal RSV (PCR) Nasal Screen MRSA (PCR) (NEGATIVE) Nasal B.pertussis DNA PCR Nasal C.pneumoniae (PCR) [place] Human Metapneumo PCR Nasal M.pneumoniae (PCR) Nasal SARS-CoV-2 (PCR) Urine Opiates Screen (NEGATIVE) Ur Oxycodone Screen (NEGATIVE) Urine Methadone Screen (NEGATIVE) Ur Propoxyphene Screen (NEGATIVE) Ur Barbiturates Screen (NEGATIVE) Ur Tricyclics Screen (NEGATIVE) Ur Phencyclidine Scrn (NEGATIVE) Ur Amphetamine Screen (NEGATIVE) U Methamphetamines Scrn (NEGATIVE) U Benzodiazepines Scrn (NEGATIVE) Urine Cocaine Screen (NEGATIVE) U Cannabinoids Screen (NEGATIVE) Ethyl Alcohol < 5.0 mg/dL 08/01/22 Range/Units 14:16 WBC 12.6 H (4.8-10.8) x10^3/uL RBC 3.47 L (4.70-6.10) 10^6/uL Hgb 10.9 L (14.0-18.0) g/dL Hct 31.1 L (42.0-52.0) % MCV 89.6 (80.0-94.0) fL MCH 31.4 H (27.0-31.0) pg MCHC 35.0 (32.0-36.0) g/dL RDW 11.7 L (12.0-15.0) % Plt Count 211 (130-450) 10^3/uL MPV 10.4 (7.4-11.4) fL Neut # (Auto) 10.4 H (1.5-6.6) 10^3/uL Lymph # (Auto) 0.9 L (1.5-3.5) 10^3/uL [place] # (Auto) 1.2 H (0.0-1.0) 10^3/uL Eos # (Auto) 0.0 (0.0-0.7) 10^3/uL Baso # (Auto) 0.0 (0.0-0.1) 10^3/uL Absolute Nucleated RBC 0.00 x10^3/uL Nucleated RBC % 0.0 /100WBC PT (9.9-12.6) secs INR (0.8-1.2) VBG pH (7.31-7.41) Ionized Calcium (1.15-1.33) mmol/L Sodium (135-145) mmol/L Potassium (3.5-5.0) mmol/L Chloride (101-111) mmol/L Carbon Dioxide (21-32) mmol/L Anion Gap (6-13) BUN (6-20) mg/dL Creatinine (0.6-1.2) mg/dL Estimated GFR (MDRD) (>89) Glucose (70-100) mg/dL Lactic Acid (0.5-2.2) mmol/L Calcium (8.5-10.3) mg/dL Phosphorus (2.5-4.6) mg/dL Magnesium (1.7-2.8) mg/dL Total Bilirubin (0.2-1.0) mg/dL Direct Bilirubin (0.1-0.5) mg/dL AST (10-42) IU/L ALT (10-60) IU/L Alkaline Phosphatase (42-121) IU/L Total Protein (6.7-8.2) g/dL Albumin (3.2-5.5) g/dL Globulin (2.1-4.2) g/dL Albumin/Globulin Ratio (1.0-2.2) Lipase (22-51) U/L Urine Color Urine Clarity (CLEAR) Urine pH (5.0-7.5) PH Ur Specific [place] (1.002-1.030) Urine Protein (NEGATIVE) mg/dL Urine Glucose (UA) (NEGATIVE) mg/dL Urine Ketones (NEGATIVE) mg/dL Urine Occult Blood (NEGATIVE) Urine Nitrite (NEGATIVE) Urine Bilirubin (NEGATIVE) Urine Urobilinogen (NORMAL) E.U./dL Ur Leukocyte Esterase (NEGATIVE) Urine RBC (0-5) /HPF Urine WBC (0-3) /HPF Ur Squamous Epith Cells (<= Few) Urine Bacteria (None Seen) /HPF Ur Microscopic Review Urine Culture Comments Nasal Adenovirus (PCR) Nasal B. parapertussis DNA (PCR) Nasal Coronavir 229E PCR Nasal Coronavir HKU1 PCR Nasal Coronavir NL63 PCR Nasal Coronavir OC43 PCR Nasal Enterovir/Rhinovir PCR Nasal Influenza B PCR Nasal Influenza A PCR Nasal Parainfluen 1 PCR Nasal Parainfluen 2 PCR Nasal Parainfluen 3 PCR Nasal Parainfluen 4 PCR Nasal RSV (PCR) Nasal Screen MRSA (PCR) (NEGATIVE) Nasal B.pertussis DNA PCR Nasal C.pneumoniae (PCR) [place] Human Metapneumo PCR Nasal M.pneumoniae (PCR) Nasal SARS-CoV-2 (PCR) Urine Opiates Screen (NEGATIVE) Ur Oxycodone Screen (NEGATIVE) Urine Methadone Screen (NEGATIVE) Ur Propoxyphene Screen (NEGATIVE) Ur Barbiturates Screen (NEGATIVE) Ur Tricyclics Screen (NEGATIVE) Ur Phencyclidine Scrn (NEGATIVE) Ur Amphetamine Screen (NEGATIVE) U Methamphetamines Scrn (NEGATIVE) U Benzodiazepines Scrn (NEGATIVE) Urine Cocaine Screen (NEGATIVE) U Cannabinoids Screen (NEGATIVE) Ethyl Alcohol mg/dL Assessment/Plan - Problem List (1) Altered mental status Impression: Improved. He is awake, but is somnolent and falls asleep midsentence today. But he is not combative or agitated and is oriented x3 Likely this was multifactorial: From his acute hyponatremia, from having recent general anesthesia that was slow to clear in an octogenarian, from being on chung cotics postop and taking recent benzodiazepines. In addition, he may have been uncomfortable from constipation, gastric distention, hiccups, and urinary distention. Also, because he had a mild AST/ALT elevation and alcohol intake Hx is unknown, and since he was 48 hours from possibly his last alcohol intake before the hip surgery, he may be going through alcohol withdrawal. Plan: Remain in the ICU today due to #4 Will discontinue his restraints Continue to treat each of the problems individually as described below. Plan was discussed with the patient, and and daughter, who were at bedside today Continue CIWA protocol with low-dose IV Ativan if needed for withdrawal symptoms Qualifiers: Altered mental status type: delirium Qualified Code(s): R41.0 - Disorientation, unspecified (2) Hyponatremia Conclusion/Plan: This is very likely a contributing cause to his altered mental status. It was probably caused from excessive free water intake, that he was doing because of hiccups. Serum sodium has improved from 118 yesterday up to 124 today Plan: Will order free water intake restriction and will start a diet Cont NS IV hydration, with a goal of not correcting his sodium more than 6 to 8 mEq every 8 hours. Follow serum sodium every 6 hours. (3) Medication adverse effect Conclusion/Plan: Likely the combination of general anesthesia, narcotics and benzodiazepines in an octogenarian is having an adverse effect Plan: We will not be ordering any narcotics, since Tylenol alone is controlling the R hip pain Will allow washout of the general anesthetic and narcotics Will stop benzodiazepines for combativeness, but cont what is needed by CIWA protocol Qualifiers: Encounter type: subsequent encounter (4) Heart block (I45.9) Today the pt had episodes of sinus bradycardia, then at 14:30 he had sinus exit block. This created a 3 sec pause. EKG was done today. I interpreted the EKG which showed Sinus arrhythmia, rate 63-75, Left atrial enlargement, No significant change from EKG done October 2020. There was no EKG done yesterday in the ER at admission Plan: Remain in ICU, on telemetry Avoid all HR slowing meds and will stop Haldol. (5) Coffee ground emesis Conclusion/Plan: This could be from a stress ulcer from all his recent medical events Plan: Will change IV to po Protonix Follow hemoglobin daily Remove NG tube and start a diet Continue DVT prophylaxis with SCDs, not Lovenox He requests Tums to treat indigestion, will order this (6) Acute urinary retention Conclusion/Plan: Patient has a history of BPH and was on meds for this. Plan: Will remove Parada and restart his BPH meds slowly, due to "soft" BP (7) Elevated lactic acid level Conclusion/Plan: With no other signs of infection, UA unremarkable white count, surgical site appears clean, no fever, no hypoxia, this is likely demargination from the stress of his recent events Plan: Will obtain a chest x-ray to rule out a pulmonary source of infection, given the recent hiccups and coffee grounds, possible aspiration Continue IV NS for fluids for hydration Follow lactic acid level to assure it is improving (8) Aspiration pneumonia Conclusion/Plan: Chest x-ray done for NG tube placement last night was read as having a retrocardiac infiltrate. CXR was repeated this a.m. and report is of a R-sided opacity I am therefore concerned that he had aspiration pneumonia given his obtunded state and the hiccups and the coffee-ground emesis. Blood cultures were done and sputum was also sent for culture Plan: Continue IV amp/sulbactam and IV Flagyl Await blood culture and sputum culture result Will start Florastor po (9) Hiccups Plan: We need to stop Haldol to treat his hiccups, since it may have added to the sinus exit block (10) S/P Hip surgery (Z98.890) Plan: We will not be ordering any narcotics, since Tylenol alone is controlling the R hip pain Will order PT eval, and get OOB later today possibly Qualifiers: Altered mental status type: delirium Qualified Code(s): R41.0 - Disorientation, unspecified
[2022-08-02] MEDS ORDERED: CALCIUM CARBONATE CHEW 500 MG TABLET PO PRN (15:02)
[2022-08-02 15:05] LABS: VBG PH 7.426 (7.31-7.41)
[2022-08-02 15:06] LABS: CALCIUM, IONIZED 1.04 mmol/L (1.15-1.33)
[2022-08-02 15:14] LABS: MAGNESIUM 1.8 mg/dL (1.7-2.8); PHOSPHORUS 3.4 mg/dL (2.5-4.6); POTASSIUM 3.9 mmol/L (3.5-5.0)
--- NOTE | 2022-08-02 15:35 | PHARMACY PROGRESS NOTE ---
- Best Possible Medication History Admit Date and Time: 08/01/221811 Processed by: Pharmacy Medication History completed: Yes Patient Interview: Completed Secondary Source(s): Insurance records (PT HAD LIMITED PARTICIPATION. HE COULD TELL ME THAT HE HAS BPH, TAKING SILDENAFIL, PAIN MEDS FOR RECENT SURGERY, AND A MEDICATION FOR RUNNY NOSE. I COMPARED THOSE WITH INSURANCE RECORDS TO RECONCILE HIS MEDS. COULD NOT GET A HOLD OF .) As the person ultimately responsible for medication therapy, providers are able to order a medication from an existing home medication list in [facility] via the "Reconcile Routine" prior to Confirmation of that medication by operations support manager. Such practice is discouraged except when the physician, in their clinical judgment, deems that a medical need exists for a medication without regard to previous use.
[2022-08-02] MEDS: CALCIUM CARBONATE CHEW 500 MG TABLET PO SCH ×2 (16:38→19:34)
[2022-08-02] MEDS: MAGNESIUM OXIDE 400 MG TABLET PO SCH ×2 (16:40→21:18)
[2022-08-02] MEDS: PROCHLORPERAZINE 10 MG/2 ML VIAL IVP PRN (19:34)
[2022-08-02] MEDS: PANTOPRAZOLE 40 MG TABLET PO SCH (20:09)
[2022-08-02] MEDS ORDERED: DOXAZOSIN 4 MG TABLET PO SCH (21:00)
[2022-08-02] MEDS: SUCRALFATE 1 GM/10 ML UDC PO SCH (21:18)
[2022-08-02] MEDS ORDERED: OLANZapine 10 MG VIAL IM ONE (22:08)
[2022-08-03 04:45] LABS: BASOPHILS % (AUTO) 0.2 %; EOSINOPHILS # (AUTO) 0.1 10^3/uL (0.0-0.7); EOSINOPHILS % (AUTO) 1.1 %; HCT - HEMATOCRIT 26.1 % (42.0-52.0); HGB - HEMOGLOBIN 9.2 g/dL (14.0-18.0); LYMPHOCYTES # (AUTO) 0.8 10^3/uL (1.5-3.5); LYMPHOCYTES % (AUTO) 9.5 %; MEAN CORPUSCULAR HEMOGLOBIN 31.8 pg (27.0-31.0); MEAN CORPUSCULAR HGB CONC 35.2 g/dL (32.0-36.0); MEAN CORPUSCULAR VOLUME 90.3 fL (80.0-94.0); MEAN PLATELET VOLUME 10.6 fL (7.4-11.4); MONOCYTES # (AUTO) 0.7 10^3/uL (0.0-1.0); MONOCYTES % (AUTO) 8.7 %; NEUTROPHILS # (AUTO) 6.6 10^3/uL (1.5-6.6); PLT - PLATELET COUNT 228 10^3/uL (130-450); RED BLOOD COUNT 2.89 10^6/uL (4.70-6.10); RED CELL DISTRIBUTION WIDTH 11.9 % (12.0-15.0); WHITE BLOOD COUNT 8.2 x10^3/uL (4.8-10.8)
[2022-08-03 04:51] LABS: CALCIUM 7.9 mg/dL (8.5-10.3); CREATININE 0.7 mg/dL (0.6-1.2); POTASSIUM 3.7 mmol/L (3.5-5.0)
[2022-08-03 04:53] LABS: MAGNESIUM 1.8 mg/dL (1.7-2.8)
[2022-08-03 05:02] LABS: VBG PH 7.41 (7.31-7.41)
[2022-08-03 05:03] LABS: CALCIUM, IONIZED 1.07 mmol/L (1.15-1.33)
[2022-08-03] MEDS: LORazepam 2 MG/ML VIAL IVP PRN ×8 (05:08→22:56)
[2022-08-03] MEDS: AMPICILLIN/SULBACTAM 3 GM in SODIUM CHLORIDE 0.9% MINIBAG 100 ML IV SCH ×3 (06:01→17:42)
[2022-08-03] MEDS: SUCRALFATE 1 GM/10 ML UDC PO SCH ×2 (06:01→11:15)
[2022-08-03] MEDS: POTASSIUM CHLOR 10 MEQ/100 ML 10 MEQ/100 ML BAG IV SCH ×2 (06:01→07:51)
[2022-08-03] MEDS: metroNIDAZOLE 500 MG/100 ML 500 MG/100 ML BAG IV SCH ×2 (07:51→19:50)
[2022-08-03] MEDS: PANTOPRAZOLE 40 MG TABLET PO SCH ×2 (10:01→11:16)
[2022-08-03] MEDS: SODIUM CHLORIDE FLUSH 0.9% 10 ML SYRINGE IVP SCH ×3 (10:01→19:49)
[2022-08-03] MEDS: CALCIUM CARBONATE CHEW 500 MG TABLET PO SCH ×3 (10:01→13:00)
--- NOTE | 2022-08-03 15:11 | PROVIDER PROGRESS NOTE ---
Objective - Vital Signs/Intake & Output Reviewed Vital Signs: Yes Vital Signs: Vital Signs Temp Pulse Resp BP Pulse Ox 08/03/22 14:00 68 22 120/47 L 96 08/03/22 13:00 63 20 119/43 L 96 08/03/22 12:00 74 18 137/51 H 96 08/03/22 11:00 37.3 C 65 14 135/88 H 96 Intake & Output: Intake & Output 07/31/22 08/01/22 08/02/22 08/03/22 23:59 23:59 23:59 23:59 Intake Total 7727.743 3180.5 680 Output Total 1190 1394 200 Balance 558.495 7243.5 480 - Objective General Appearance: positive: Severe distress (Fidgety, combative, reaching straight into the air in front of him and picking at his clothes, trying to get out of bed on his good left leg. Demanding to get to the parking lot because he has to get to his car. Thinks he is in [place]. He did recognize his but not his daughter.), Other (Has hiccups, is snoring, is coughing frequently) Eyes Bilateral: positive: Normal inspection ENT: positive: No signs of dehydration Neck: positive: Nml inspection, No JVD Respiratory: positive: Breath sounds nml, Rhonchi Cardiovascular: positive: Regular rate & rhythm, No murmur Abdomen: positive: Non-tender, No distention Skin: positive: Diaphoresis (Forehead appears diaphoretic), Pallor Extremities: positive: No pedal edema, Other (Bandage over right hip, dry and clean) Neurologic/Psychiatric: positive: Disoriented to person, Disoriented to place, Disoriented to time, Other (No tremor. No asterixis. No nystagmus. Moving all extremities.) - Lab Results Fish Bones: 08/03/22 04:29 08/03/22 10:39 Other Labs: Lab Results x24hrs 08/03/22 08/03/22 08/03/22 Range/Units 10:39 04:29 04:29 WBC (4.8-10.8) x10^3/uL RBC (4.70-6.10) 10^6/uL Hgb (14.0-18.0) g/dL Hct (42.0-52.0) % MCV (80.0-94.0) fL MCH (27.0-31.0) pg MCHC (32.0-36.0) g/dL RDW (12.0-15.0) % Plt Count (130-450) 10^3/uL MPV (7.4-11.4) fL Neut # (Auto) (1.5-6.6) 10^3/uL Lymph # (Auto) (1.5-3.5) 10^3/uL [place] # (Auto) (0.0-1.0) 10^3/uL Eos # (Auto) (0.0-0.7) 10^3/uL Baso # (Auto) (0.0-0.1) 10^3/uL Absolute Nucleated RBC x10^3/uL Nucleated RBC % /100WBC VBG pH 7.410 (7.31-7.41) Ionized Calcium 1.07 L (1.15-1.33) mmol/L Sodium 126 L (135-145) mmol/L Potassium (3.5-5.0) mmol/L Chloride (101-111) mmol/L Carbon Dioxide (21-32) mmol/L Anion Gap (6-13) BUN (6-20) mg/dL Creatinine (0.6-1.2) mg/dL Estimated GFR (MDRD) (>89) Glucose (70-100) mg/dL Calcium (8.5-10.3) mg/dL Phosphorus 3.0 (2.5-4.6) mg/dL Magnesium 1.8 (1.7-2.8) mg/dL 08/03/22 08/03/22 08/02/22 Range/Units 04:29 04:29 22:58 WBC 8.2 (4.8-10.8) x10^3/uL RBC 2.89 L (4.70-6.10) 10^6/uL Hgb 9.2 L (14.0-18.0) g/dL Hct 26.1 L (42.0-52.0) % MCV 90.3 (80.0-94.0) fL MCH 31.8 H (27.0-31.0) pg MCHC 35.2 (32.0-36.0) g/dL RDW 11.9 L (12.0-15.0) % Plt Count 228 (130-450) 10^3/uL MPV 10.6 (7.4-11.4) fL Neut # (Auto) 6.6 (1.5-6.6) 10^3/uL Lymph # (Auto) 0.8 L (1.5-3.5) 10^3/uL [place] # (Auto) 0.7 (0.0-1.0) 10^3/uL Eos # (Auto) 0.1 (0.0-0.7) 10^3/uL Baso # (Auto) 0.0 (0.0-0.1) 10^3/uL Absolute Nucleated RBC 0.00 x10^3/uL Nucleated RBC % 0.0 /100WBC VBG pH (7.31-7.41) Ionized Calcium (1.15-1.33) mmol/L Sodium 128 L 126 L (135-145) mmol/L Potassium 3.7 (3.5-5.0) mmol/L Chloride 93 L (101-111) mmol/L Carbon Dioxide 27 (21-32) mmol/L Anion Gap 8.0 (6-13) BUN 13 (6-20) mg/dL Creatinine 0.7 (0.6-1.2) mg/dL Estimated GFR (MDRD) 107 (>89) Glucose 113 H (70-100) mg/dL Calcium 7.9 L (8.5-10.3) mg/dL Phosphorus (2.5-4.6) mg/dL Magnesium (1.7-2.8) mg/dL 08/02/22 08/02/22 08/02/22 Range/Units 17:15 14:57 14:57 WBC (4.8-10.8) x10^3/uL RBC (4.70-6.10) 10^6/uL Hgb (14.0-18.0) g/dL Hct (42.0-52.0) % MCV (80.0-94.0) fL MCH (27.0-31.0) pg MCHC (32.0-36.0) g/dL RDW (12.0-15.0) % Plt Count (130-450) 10^3/uL MPV (7.4-11.4) fL Neut # (Auto) (1.5-6.6) 10^3/uL Lymph # (Auto) (1.5-3.5) 10^3/uL [place] # (Auto) (0.0-1.0) 10^3/uL Eos # (Auto) (0.0-0.7) 10^3/uL Baso # (Auto) (0.0-0.1) 10^3/uL Absolute Nucleated RBC x10^3/uL Nucleated RBC % /100WBC VBG pH 7.426 H (7.31-7.41) Ionized Calcium 1.04 L (1.15-1.33) mmol/L Sodium 122 L (135-145) mmol/L Potassium 3.9 (3.5-5.0) mmol/L Chloride (101-111) mmol/L Carbon Dioxide (21-32) mmol/L Anion Gap (6-13) BUN (6-20) mg/dL Creatinine (0.6-1.2) mg/dL Estimated GFR (MDRD) (>89) Glucose (70-100) mg/dL Calcium (8.5-10.3) mg/dL Phosphorus 3.4 (2.5-4.6) mg/dL Magnesium 1.8 (1.7-2.8) mg/dL Assessment/Plan - Problem List (1) Altered mental status Impression: Worsened. Overnight he could not sleep all night, was fidgety and the telemedicine doctor was contacted. Zyprexa IM x1 was given. This morning he was at first very sleepy and at midday became awake and is again combative, agitated and entirely disoriented. The initial delerium could have been from his acute hyponatremia, and from having recent general anesthesia that was slow to clear in an octogenarian, and from being on narcotics postop and taking recent benzodiazepines. In addition, he may have been uncomfortable from constipation, gastric distention, hiccups, and urinary distention. The serum sodium is slowly improving, and he is now 5+ days from general anesthesia. Currently I think the most likely explanation of his worsening mental status, is that he is going through alcohol withdrawal. Plan: Remain in the ICU Continue with [facility] protocol to give benzodiazepines for alcohol withdrawal Will start a banana bag 2) Alcohol withdrawal He had a mild AST/ALT elevation at admission. There was no documentation in the H&P regarding how much alcohol he drank. Today I questioned the and daughter, who are at bedside toda, about his alcohol use. He drinks every night for many years, has 1 gin and tonic and possibly also a glass of wine. When he is "out with the boys" his drink is 2 gla sses of whiskey. Since he was hospitalized for 2 days in [place], then became delerious at that 48 hour chucho from his last alcohol intake (which was before the hip surgery), it now appears that he is going through alcohol withdrawal. He did have some improvement yesterday, which was after benzodiazepines were given here in the ER. And then has not had benzodiazepine for over 24 hours, and only Zyprexa was given in the last 12 hours Plan: Remain in the ICU Continue CIWA protocol with IV Ativan if needed for withdrawal symptoms Since he is too disoriented to swallow any meds, we unfortunately cannot give him Librium therefore We will start a banana bag for hydration and for thiamine treatment Will change his diet back to n.p.o. except ice chips Qualifiers: Altered mental status type: delirium Qualified Code(s): R41.0 - Disorientat ion, unspecified (3) Hyponatremia Conclusion/Plan: This was initially likely a contributing cause to his altered mental status. It was probably caused from excessive free water intake, that he was doing because of hiccups. Serum sodium has improved from 118>> 124>> 128 today Plan: Cont NS IV hydration, plus banana bag Cont to follow serum sodium every 6 hours. (4) Heart block (I45.9) Yesterday 08/02 and today 08/03 the pt has had several episodes of sinus bradycardia, and sinus exit block several times. This created several 3 sec pauses. EKG was done yesterday which showed Sinus arrhythmia, rate 63-75, Left atrial enlargement, No significant change from EKG done October 2020. There was no EKG done in the ER at admission. A bedside Echocardiogram was done by myself today: This showed normal LV and RV contractility, mild LV diastolic dysfunction and mild mitral regurgitation Plan: Remain in ICU, on telemetry Avoid all HR slowing meds and avoid Haldol and Zyprexa, for their cardiac side effects (5) Coffee ground emesis Conclusion/Plan: This could have been from a stress ulcer from all his recent medical events Plan: Will change po Protonix back to iv bid Protonix, since he cannot swallow, is delirious Need to stop the sucralfate p.o. Follow hemoglobin daily Continue DVT prophylaxis with SCDs, not Lovenox (6) Aspiration pneumonia Conclusion/Plan: Chest x-ray done for NG tube placement last night was read as having a retrocardiac infiltrate. CXR was repeated this a.m. and report is of a R-sided opacity I am therefore concerned that he had aspiration pneumonia given his obtunded state and the hiccups and the coffee-ground emesis. Blood cultures were done and sputum was also sent for culture Plan: Continue IV amp/sulbactam and IV Flagyl Await blood culture and sputum culture result Will start Florastor po (7) Hiccups Plan: We need to stop Haldol to treat his hiccups Will see if Benzos help his hiccups (8) S/P Hip surgery (Z98.890) Plan: We will not be ordering any narcotics, since Tylenol alone is controlling the R hip pain We ordered PT eval yesterday but need to cancel that since he is delerious today. Qualifiers: Altered mental status type: delirium Qualified Code(s): R41.0 - Disorientation, unspecified (9) Acute urinary retention Conclusion/Plan: Patient has a history of BPH and was on meds for this. We removed the Parada yesterday and restarted his BPH meds slowly, due to "soft" BP Plan: We will try not to reinsert the Parada catheter. If he can use a urinal now it would be great, will straight cath if he has a lot of residual on bladder scan (10) Medication adverse effect Conclusion/Plan: It is unclear if a combination of general anesthesia, narcotics and benzodiazepines in an octogenarian had an adverse effect Plan: We stopped any narcotics, since Tylenol alone was controlling the R hip pain Cont benzos as needed by [facility] protocol Qualifiers: Encounter type: subsequent encounter (11) Elevated lactic acid level Conclusion/Plan: With no other signs of infection, UA unremarkable white count, surgical site appears clean, no fever, no hypoxia, this is likely demargination from the stress of his recent events We followed lactic acid level to assure it was improving, and it did normalize with iv fluids Qualifiers: Altered mental status type: delirium Qualified Code(s): R41.0 - Disorientation, unspecified
--- NOTE | 2022-08-03 15:45 | PROVIDER PROGRESS NOTE ---
Hospitalist Cross-cover Note - Cross-Cover Note Cross-Cover Note: As a board-certified [employer], credentialed to perform and interpret Echocardiograms, I did a bedside complete Echo with Doppler today 08/03/22. Indication: Heart block Findings: Normal atrial sizes. Normal aortic root diameter with mural atherosclerosis. Normal left ventricular size with normal wall thickness. Normal LVEF of 60%. Doppler shows mild LV diastolic dysfunction present (grade 1). Upper limit of normal RV size. Normal RV contractility. Mitral and tricuspid valves appear structurally normal. The aortic valve is trileaflet and mildly sclerotic but has good mobility. Pulmonic valve poorly seen. Doppler of the valves shows mild mitral regurgitation and trace tricuspid regurgitation. No pericardial effusion present Imp: Structurally normal heart Normal LV and RV systolic function Mild mitral regurg.
[2022-08-03] MEDS: MULTIVITAMIN 10 ML, THIAMINE INJ 100 MG, FOLIC ACID INJ 1 MG in SODIUM CHLORIDE 0.9% 1,... IV SCH (17:42)
[2022-08-03] MEDS: SODIUM CHLORIDE 0.9% 1,000 ML IV SCH (17:42)
[2022-08-03] MEDS: PROCHLORPERAZINE 10 MG/2 ML VIAL IVP PRN (19:49)
[2022-08-03] MEDS: PANTOPRAZOLE 40 MG VIAL IVP SCH (20:13)
[2022-08-03] MEDS: SODIUM CHLORIDE FLUSH 0.9% 10 ML SYRINGE IVP PRN ×2 (20:13→22:56)
[2022-08-04] MEDS: PROCHLORPERAZINE 10 MG/2 ML VIAL IVP PRN (03:32)
[2022-08-04] MEDS: LORazepam 2 MG/ML VIAL IVP PRN ×3 (03:36→13:05)
[2022-08-04] MEDS: SODIUM CHLORIDE FLUSH 0.9% 10 ML SYRINGE IVP PRN (03:37)
[2022-08-04 04:41] LABS: BASOPHILS % (AUTO) 0.6 %; EOSINOPHILS # (AUTO) 0.2 10^3/uL (0.0-0.7); EOSINOPHILS % (AUTO) 3.4 %; HGB - HEMOGLOBIN 9.2 g/dL (14.0-18.0); LYMPHOCYTES # (AUTO) 0.9 10^3/uL (1.5-3.5); LYMPHOCYTES % (AUTO) 13.7 %; MEAN CORPUSCULAR HEMOGLOBIN 31.4 pg (27.0-31.0); MEAN CORPUSCULAR HGB CONC 34.1 g/dL (32.0-36.0); MEAN CORPUSCULAR VOLUME 92.2 fL (80.0-94.0); MEAN PLATELET VOLUME 10.4 fL (7.4-11.4); MONOCYTES # (AUTO) 0.7 10^3/uL (0.0-1.0); MONOCYTES % (AUTO) 11.6 %; NEUTROPHILS # (AUTO) 4.4 10^3/uL (1.5-6.6); NEUTROPHILS % (AUTO) 70.2 %; PLT - PLATELET COUNT 274 10^3/uL (130-450); RED BLOOD COUNT 2.93 10^6/uL (4.70-6.10); WHITE BLOOD COUNT 6.2 x10^3/uL (4.8-10.8)
[2022-08-04 04:43] LABS: CALCIUM, IONIZED 1.06 mmol/L (1.15-1.33); VBG PH 7.412 (7.31-7.41)
[2022-08-04 04:55] LABS: ALBUMIN 2.5 g/dL (3.2-5.5); BILIRUBIN,TOTAL 1.1 mg/dL (0.2-1.0); CALCIUM 7.5 mg/dL (8.5-10.3); CREATININE 0.9 mg/dL (0.6-1.2); PHOSPHORUS 3.6 mg/dL (2.5-4.6); POTASSIUM 3.6 mmol/L (3.5-5.0)
[2022-08-04] MEDS ORDERED: CALCIUM GLUC 1,000MG/50ML-NACL 1,000 MG/50 ML BAG IV ONE (05:48)
[2022-08-04] MEDS: AMPICILLIN/SULBACTAM 3 GM in SODIUM CHLORIDE 0.9% MINIBAG 100 ML IV SCH ×6 (05:50→23:34)
[2022-08-04] MEDS: POTASSIUM CHLOR 10 MEQ/100 ML 10 MEQ/100 ML BAG IV SCH ×2 (06:20→08:01)
[2022-08-04] MEDS: metroNIDAZOLE 500 MG/100 ML 500 MG/100 ML BAG IV SCH ×2 (08:04→20:00)
[2022-08-04] MEDS: PANTOPRAZOLE 40 MG VIAL IVP SCH ×2 (08:15→21:10)
[2022-08-04] MEDS: SODIUM CHLORIDE FLUSH 0.9% 10 ML SYRINGE IVP SCH ×3 (08:15→23:38)
--- NOTE | 2022-08-04 09:30 | PROVIDER PROGRESS NOTE ---
Subjective - Subjective Pt reports feeling: Improved (Mostly asleep, awoke to urinate and was able to use the urinal without being combative, also told his daughter "what thorough care they give here".) Objective - Vital Signs/Intake & Output Vital Signs: Vital Signs Temp Pulse Resp BP Pulse Ox 08/04/22 09:00 63 13 114/45 L 96 08/04/22 08:00 36.8 C 60 19 127/51 L 97 08/04/22 07:00 62 22 100/46 L 99 08/04/22 06:00 67 25 H 116/46 L 96 Intake & Output: Intake & Output 08/01/22 08/02/22 08/03/22 08/04/22 23:59 23:59 23:59 23:59 Intake Total 7523.024 2514.5 1880 2039.533 Output Total 1190 1394 200 350 Balance 822.868 1654.5 1680 1689.533 - Objective General Appearance: positive: Lethargic (Awoke very briefly and waved back when I waved at him), Other (Sedated) Eyes Bilateral: positive: Normal inspection, No lid inflammation ENT: positive: No signs of dehydration Neck: positive: Nml inspection, No JVD Respiratory: positive: No respiratory distress, Breath sounds nml Cardiovascular: positive: Regular rate & rhythm, No murmur Abdomen: positive: Non-tender, No distention Skin: positive: Warm, Dry Extremities: positive: Non-tender, No pedal edema Neurologic/Psychiatric: positive: Other (sedated) - Lab Results Fish Bones: 08/04/22 04:15 08/04/22 04:15 Other Labs: Lab Results x24hrs 08/04/22 08/04/22 08/04/22 Range/Units 07:55 04:15 04:15 WBC (4.8-10.8) x10^3/uL RBC (4.70-6.10) 10^6/uL Hgb (14.0-18.0) g/dL Hct (42.0-52.0) % MCV (80.0-94.0) fL MCH (27.0-31.0) pg MCHC (32.0-36.0) g/dL RDW (12.0-15.0) % Plt Count (130-450) 10^3/uL MPV (7.4-11.4) fL Neut # (Auto) (1.5-6.6) 10^3/uL Lymph # (Auto) (1.5-3.5) 10^3/uL [place] # (Auto) (0.0-1.0) 10^3/uL Eos # (Auto) (0.0-0.7) 10^3/uL Baso # (Auto) (0.0-0.1) 10^3/uL Absolute Nucleated RBC x10^3/uL Nucleated RBC % /100WBC VBG pH 7.412 H (7.31-7.41) Ionized Calcium 1.06 L (1.15-1.33) mmol/L Sodium 134 L (135-145) mmol/L Potassium 3.6 (3.5-5.0) mmol/L Chloride 99 L (101-111) mmol/L Carbon Dioxide 22 (21-32) mmol/L Anion Gap 13.0 (6-13) BUN 11 (6-20) mg/dL Creatinine 0.9 (0.6-1.2) mg/dL Estimated GFR (MDRD) 80 L (>89) Glucose 84 (70-100) mg/dL Calcium 7.5 L (8.5-10.3) mg/dL Phosphorus 3.6 (2.5-4.6) mg/dL Magnesium 2.0 (1.7-2.8) mg/dL Total Bilirubin 1.1 H (0.2-1.0) mg/dL AST 41 (10-42) IU/L ALT 29 (10-60) IU/L Alkaline Phosphatase 64 (42-121) IU/L Ammonia 17.4 (7-35) umol/L Total Protein 5.0 L (6.7-8.2) g/dL Albumin 2.5 L (3.2-5.5) g/dL Globulin 2.5 (2.1-4.2) g/dL Albumin/Globulin Ratio 1.0 (1.0-2.2) 08/04/22 08/03/22 08/03/22 Range/Units 04:15 22:46 17:01 WBC 6.2 (4.8-10.8) x10^3/uL RBC 2.93 L (4.70-6.10) 10^6/uL Hgb 9.2 L (14.0-18.0) g/dL Hct 27.0 L (42.0-52.0) % MCV 92.2 (80.0-94.0) fL MCH 31.4 H (27.0-31.0) pg MCHC 34.1 (32.0-36.0) g/dL RDW 12.0 (12.0-15.0) % Plt Count 274 (130-450) 10^3/uL MPV 10.4 (7.4-11.4) fL Neut # (Auto) 4.4 (1.5-6.6) 10^3/uL Lymph # (Auto) 0.9 L (1.5-3.5) 10^3/uL [place] # (Auto) 0.7 (0.0-1.0) 10^3/uL Eos # (Auto) 0.2 (0.0-0.7) 10^3/uL Baso # (Auto) 0.0 (0.0-0.1) 10^3/uL Absolute Nucleated RBC 0.00 x10^3/uL Nucleated RBC % 0.0 /100WBC VBG pH (7.31-7.41) Ionized Calcium (1.15-1.33) mmol/L Sodium 132 L 132 L (135-145) mmol/L Potassium (3.5-5.0) mmol/L Chloride (101-111) mmol/L Carbon Dioxide (21-32) mmol/L Anion Gap (6-13) BUN (6-20) mg/dL Creatinine (0.6-1.2) mg/dL Estimated GFR (MDRD) (>89) Glucose (70-100) mg/dL Calcium (8.5-10.3) mg/dL Phosphorus (2.5-4.6) mg/dL Magnesium (1.7-2.8) mg/dL Total Bilirubin (0.2-1.0) mg/dL AST (10-42) IU/L ALT (10-60) IU/L Alkaline Phosphatase (42-121) IU/L Ammonia (7-35) umol/L Total Protein (6.7-8.2) g/dL Albumin (3.2-5.5) g/dL Globulin (2.1-4.2) g/dL Albumin/Globulin Ratio (1.0-2.2) 08/03/22 Range/Units 10:39 WBC (4.8-10.8) x10^3/uL RBC (4.70-6.10) 10^6/uL Hgb (14.0-18.0) g/dL Hct (42.0-52.0) % MCV (80.0-94.0) fL MCH (27.0-31.0) pg MCHC (32.0-36.0) g/dL RDW (12.0-15.0) % Plt Count (130-450) 10^3/uL MPV (7.4-11.4) fL Neut # (Auto) (1.5-6.6) 10^3/uL Lymph # (Auto) (1.5-3.5) 10^3/uL [place] # (Auto) (0.0-1.0) 10^3/uL Eos # (Auto) (0.0-0.7) 10^3/uL Baso # (Auto) (0.0-0.1) 10^3/uL Absolute Nucleated RBC x10^3/uL Nucleated RBC % /100WBC VBG pH (7.31-7.41) Ionized Calcium (1.15-1.33) mmol/L Sodium 126 L (135-145) mmol/L Potassium (3.5-5.0) mmol/L Chloride (101-111) mmol/L Carbon Dioxide (21-32) mmol/L Anion Gap (6-13) BUN (6-20) mg/dL Creatinine (0.6-1.2) mg/dL Estimated GFR (MDRD) (>89) Glucose (70-100) mg/dL Calcium (8.5-10.3) mg/dL Phosphorus (2.5-4.6) mg/dL Magnesium (1.7-2.8) mg/dL Total Bilirubin (0.2-1.0) mg/dL AST (10-42) IU/L ALT (10-60) IU/L Alkaline Phosphatase (42-121) IU/L Ammonia (7-35) umol/L Total Protein (6.7-8.2) g/dL Albumin (3.2-5.5) g/dL Globulin (2.1-4.2) g/dL Albumin/Globulin Ratio (1.0-2.2) Assessment/Plan - Problem List (1) Altered mental status Impression: Overnight he needed iv Ativan scoring high on the CIWA protocol The initial delerium could have been from his acute hyponatremia, and from h aving recent general anesthesia that was slow to clear in an octogenarian, and from being on narcotics postop and taking recent benzodiazepines. In addition, he may have been uncomfortable from constipation, gastric distention, hiccups, and urinary distention. CT head was unremarkable. The serum sodium is slowly improving, and he is now many days out from general anesthesia. Since yesterday I am working on the assumption that his worsened mental status is from alcohol withdrawal. Plan: Remain in the ICU Continue with CIWA protocol to give benzodiazepines for alcohol withdrawal Will start a banana bag 2) Alcohol withdrawal He had a mild AST/ALT elevation at admission. There was no documentation in the H&P regarding how much alcohol he drank. On 08/03 I questioned the and daughter, who were at bedside, about his alcohol use. He drinks every night for many years, has 1 gin and tonic and possibly also a glass of wine. When he is "out with the boys" his drink is 2 glasses of whiskey. Because he was hospitalized for 2 days in [place], then [facility] from his last alcohol intake (which was before the hip surgery), his delerium is consistent with him going through alcohol withdrawal. Plan: Remain in the ICU Continue CIWA protocol with IV Ativan if needed for withdrawal symptoms Since he is too disoriented to swallow any meds, we unfortunately cannot give him Librium or a diet Continue banana bag for hydration and for thiamine treatment Continue diet being n.p.o. except ice chips The and daughter were updated on all this today, at bedside Qualifiers: Altered mental status type: delirium Qualified Code(s): R41.0 - Disorientation, unspecified (3) Hyponatremia Conclusion/Plan: This was initially likely a contributing cause to his altered mental status. It was probably caused from excessive free water intake, that he was doing because of hiccups. Serum sodium has improved from 118>> 124>> 128>> 132>> 134 today Plan: Cont NS IV hydration, plus banana bag Will now follow serum sodium every 12 hours. (4) Heart block (I45.9) Yesterday 08/02 and today 08/03 the pt has had several episodes of sinus bradycardia, and sinus exit block several times. This created several 3 sec pauses. EKG was done yesterday which showed Sinus arrhythmia, rate 63-75, Left atrial enlargement, No significant change from EKG done October 2020. There was no EKG done in the ER at admission. A bedside Echocardiogram was done by myself on 08/03: This showed normal LV and RV contractility, mild LV diastolic dysfunction and mild mitral regurgitation. Plan: Remain in ICU, on telemetry Avoid all HR slowing meds and avoid Haldol and Zyprexa, because of their cardiac side effects (5) Coffee ground emesis Conclusion/Plan: This could have been from a stress ulcer from all his recent medical events Plan: We changed po Protonix back to iv bid Protonix, since he cannot swallow, was delirious and is now sedated We needed to stop the sucralfate p.o. Follow hemoglobin daily Continue DVT prophylaxis with SCDs, not Lovenox or aspirin (6) Aspiration pneumonia Conclusion/Plan: Chest x-ray done for NG tube placement last night was read as having a retrocardiac infiltrate. CXR was repeated this a.m. and report is of a R-sided opacity I remain therefore concerned that he had aspiration pneumonia given his obtunded state and the hiccups and the coffee-ground emesis. Blood cultures were done and sputum was also sent for culture Plan: Continue empiric IV amp/sulbactam and IV Flagyl Await blood culture and sputum culture result RT got a suctioned spt sample and it is growing something in microbiology results. Await identification and sens (7) Hiccups Improved after Compazine given for hiccups last night Plan: We need to stop Haldol to treat his hiccups Will see if Benzos and/or Compazine help his hiccups (8) S/P Hip surgery (Z98.890) Today the told his RN that the orthopedic surgeon had prescribed aspirin 81 mg BID as DVT prophylaxis. Aspirin is not on the patient's reconciled med list, pharmacy must not have been aware. Plan: PT is on hold since he was delerious yesterday and is sedated today We will not be ordering any narcotics, since Tylenol alone is controlling the R hip pain Will pass along the information to pharmacy about the (recent new) aspirin order. However, will not add aspirin, and he is not getting Lovenox, due to coffee ground emesis/GI bleed. Continue SCDs for DVT prophylaxis. Qualifiers: Altered mental status type: delirium Qualified Code(s): R41.0 - Disorientation, unspecified (9) Acute urinary retention Conclusion/Plan: Patient has a history of BPH and was on meds for this. We removed the Parada and restarted his BPH meds slowly, due to "soft" BP Plan: We will try not to reinsert the Parada catheter. If he can use a urinal now will continue that, and will straight cath if he has >500cc of residual on bladder scan (10) Medication adverse effect Conclusion/Plan: It is unclear if a combination of general anesthesia, narcotics and benzodiazepines in an octogenarian had an adverse effect Plan: We stopped any narcotics, since Tylenol alone was controlling the R hip pain Cont benzos as needed by CIWA protocol Qualifiers: Encounter type: subsequent encounter (11) Elevated lactic acid level Conclusion/Plan: With no other signs of infection, UA unremarkable white count, surgical site appears clean, no fever, no hypoxia, this is likely demargination from the stress of his recent events We followed lactic acid level to assure it was improving, and it did normalize with iv fluids Qualifiers: Altered mental status type: delirium Qualified Code(s): R41.0 - Disorientation, unspecified Qualifiers: Altered mental status type: delirium Qualified Code(s): R41.0 - Disorientation, unspecified
[2022-08-04] MEDS: SODIUM CHLORIDE 0.9% 1,000 ML IV SCH (10:23)
[2022-08-04] MEDS ORDERED: SODIUM CHLORIDE 0.9% 1,000 ML IV ONE (15:45)
[2022-08-04] MEDS: MULTIVITAMIN 10 ML, THIAMINE INJ 100 MG, FOLIC ACID INJ 1 MG in SODIUM CHLORIDE 0.9% 1,... IV SCH (17:19)
[2022-08-04] MEDS ORDERED: traZODone 50 MG TABLET PO SCH (21:00)
[2022-08-05] MEDS: SODIUM CHLORIDE 0.9% 1,000 ML IV SCH (03:37)
[2022-08-05] MEDS: AMPICILLIN/SULBACTAM 3 GM in SODIUM CHLORIDE 0.9% MINIBAG 100 ML IV SCH (05:59)
[2022-08-05 06:22] LABS: BASOPHILS % (AUTO) 0.6 %; EOSINOPHILS # (AUTO) 0.2 10^3/uL (0.0-0.7); EOSINOPHILS % (AUTO) 3.4 %; HCT - HEMATOCRIT 29.2 % (42.0-52.0); HGB - HEMOGLOBIN 9.6 g/dL (14.0-18.0); LYMPHOCYTES # (AUTO) 0.9 10^3/uL (1.5-3.5); LYMPHOCYTES % (AUTO) 14.3 %; MEAN CORPUSCULAR HEMOGLOBIN 30.9 pg (27.0-31.0); MEAN CORPUSCULAR HGB CONC 32.9 g/dL (32.0-36.0); MEAN CORPUSCULAR VOLUME 93.9 fL (80.0-94.0); MEAN PLATELET VOLUME 9.9 fL (7.4-11.4); MONOCYTES # (AUTO) 0.8 10^3/uL (0.0-1.0); NEUTROPHILS # (AUTO) 4.2 10^3/uL (1.5-6.6); NEUTROPHILS % (AUTO) 67.9 %; PLT - PLATELET COUNT 359 10^3/uL (130-450); RED BLOOD COUNT 3.11 10^6/uL (4.70-6.10); RED CELL DISTRIBUTION WIDTH 12.1 % (12.0-15.0); WHITE BLOOD COUNT 6.2 x10^3/uL (4.8-10.8)
[2022-08-05 06:28] LABS: CALCIUM, IONIZED 1.07 mmol/L (1.15-1.33); VBG PH 7.38 (7.31-7.41)
[2022-08-05 06:39] LABS: ALBUMIN 2.3 g/dL (3.2-5.5); ALBUMIN/GLOBULIN RATIO 0.9 (1.0-2.2); BILIRUBIN,TOTAL 1.3 mg/dL (0.2-1.0); CALCIUM 7.7 mg/dL (8.5-10.3); CREATININE 0.7 mg/dL (0.6-1.2); POTASSIUM 3.7 mmol/L (3.5-5.0)
[2022-08-05] MEDS ORDERED: CALCIUM GLUC 1,000MG/50ML-NACL 1,000 MG/50 ML BAG IV ONE (06:47)
[2022-08-05] MEDS ORDERED: MAGNESIUM SULFATE 2 GRAM 2 GM/50 ML BAG IV ONE (07:29)
[2022-08-05] MEDS: PANTOPRAZOLE 40 MG VIAL IVP SCH (08:06)
[2022-08-05] MEDS: POTASSIUM CHLOR 10 MEQ/100 ML 10 MEQ/100 ML BAG IV SCH ×2 (08:12→09:11)
[2022-08-05] MEDS: cefTRIAXone 1 GM in SODIUM CHLORIDE 0.9% MINIBAG 100 ML IV SCH (08:17)
[2022-08-05] MEDS: SODIUM CHLORIDE FLUSH 0.9% 10 ML SYRINGE IVP SCH ×2 (10:24→16:18)
[2022-08-05 11:55] LABS: CALCIUM, IONIZED 1.12 mmol/L (1.15-1.33); VBG PH 7.31 (7.31-7.41)
[2022-08-05 12:02] LABS: MAGNESIUM 2.3 mg/dL (1.7-2.8); POTASSIUM 4.3 mmol/L (3.5-5.0)
[2022-08-05] MEDS ORDERED: THIAMINE 100 MG TABLET PO STA (15:17)
--- NOTE | 2022-08-05 18:47 | PROVIDER PROGRESS NOTE ---
Objective - Vital Signs/Intake & Output Vital Signs: Vital Signs Pulse Resp BP Pulse Ox 08/05/22 17:55 69 17 121/47 L 99 08/05/22 17:00 67 21 132/50 H 100 08/05/22 16:00 67 27 H 116/54 L 100 08/05/22 15:00 59 L 16 107/82 H 96 Intake & Output: Intake & Output 08/02/22 08/03/22 08/04/22 08/05/22 23:59 23:59 23:59 23:59 Intake Total 3305.5 1880 3613.700 3154.533 Output Total 3565 429 9077 1101 Balance 1911.5 1680 2253.700 2053.533 - Objective General Appearance: positive: No acute distress, Alert Eyes Bilateral: positive: Normal inspection, EOMI ENT: positive: ENT inspection nml, No signs of dehydration, Other (Throat is not red) Neck: positive: Nml inspection, No JVD Respiratory: positive: No respiratory distress, Breath sounds nml Cardiovascular: positive: Regular rate & rhythm, No murmur Abdomen: positive: Non-tender, Nml bowel sounds, No distention Skin: positive: Warm, Dry Extremities: positive: No pedal edema, Joint swelling, Other (R hip has a clean dry bandage) Neurologic/Psychiatric: positive: Oriented x3, Other (Poor memory. No tremor. No nystagmus.) - Lab Results Fish Bones: 08/05/22 05:31 08/05/22 11:46 Other Labs: Lab Results x24hrs 08/05/22 08/05/22 08/05/22 Range/Units 11:46 11:46 05:33 WBC (4.8-10.8) x10^3/uL RBC (4.70-6.10) 10^6/uL Hgb (14.0-18.0) g/dL Hct (42.0-52.0) % MCV (80.0-94.0) fL MCH (27.0-31.0) pg MCHC (32.0-36.0) g/dL RDW (12.0-15.0) % Plt Count (130-450) 10^3/uL MPV (7.4-11.4) fL Neut # (Auto) (1.5-6.6) 10^3/uL Lymph # (Auto) (1.5-3.5) 10^3/uL [place] # (Auto) (0.0-1.0) 10^3/uL Eos # (Auto) (0.0-0.7) 10^3/uL Baso # (Auto) (0.0-0.1) 10^3/uL Absolute Nucleated RBC x10^3/uL Nucleated RBC % /100WBC VBG pH 7.310 (7.31-7.41) Ionized Calcium 1.12 L (1.15-1.33) mmol/L Sodium (135-145) mmol/L Potassium 4.3 (3.5-5.0) mmol/L Chloride (101-111) mmol/L Carbon Dioxide (21-32) mmol/L Anion Gap (6-13) BUN (6-20) mg/dL Creatinine (0.6-1.2) mg/dL Estimated GFR (MDRD) (>89) Glucose (70-100) mg/dL Calcium (8.5-10.3) mg/dL Magnesium 2.3 1.7 (1.7-2.8) mg/dL Total Bilirubin (0.2-1.0) mg/dL AST (10-42) IU/L ALT (10-60) IU/L Alkaline Phosphatase (42-121) IU/L Troponin I High Sens (2.3-19.7) ng/L Total Protein (6.7-8.2) g/dL Albumin (3.2-5.5) g/dL Globulin (2.1-4.2) g/dL Albumin/Globulin Ratio (1.0-2.2) 08/05/22 08/05/22 08/05/22 Range/Units 05:31 05:31 05:31 WBC 6.2 (4.8-10.8) x10^3/uL RBC 3.11 L (4.70-6.10) 10^6/uL Hgb 9.6 L (14.0-18.0) g/dL Hct 29.2 L (42.0-52.0) % MCV 93.9 (80.0-94.0) fL MCH 30.9 (27.0-31.0) pg MCHC 32.9 (32.0-36.0) g/dL RDW 12.1 (12.0-15.0) % Plt Count 359 (130-450) 10^3/uL MPV 9.9 (7.4-11.4) fL Neut # (Auto) 4.2 (1.5-6.6) 10^3/uL Lymph # (Auto) 0.9 L (1.5-3.5) 10^3/uL [place] # (Auto) 0.8 (0.0-1.0) 10^3/uL Eos # (Auto) 0.2 (0.0-0.7) 10^3/uL Baso # (Auto) 0.0 (0.0-0.1) 10^3/uL Absolute Nucleated RBC 0.00 x10^3/uL Nucleated RBC % 0.0 /100WBC VBG pH 7.380 (7.31-7.41) Ionized Calcium 1.07 L (1.15-1.33) mmol/L Sodium 140 (135-145) mmol/L Potassium 3.7 (3.5-5.0) mmol/L Chloride 106 (101-111) mmol/L Carbon Dioxide 20 L (21-32) mmol/L Anion Gap 14.0 H (6-13) BUN 10 (6-20) mg/dL Creatinine 0.7 (0.6-1.2) mg/dL Estimated GFR (MDRD) 107 (>89) Glucose 87 (70-100) mg/dL Calcium 7.7 L (8.5-10.3) mg/dL Magnesium (1.7-2.8) mg/dL Total Bilirubin 1.3 H (0.2-1.0) mg/dL AST 33 (10-42) IU/L ALT 26 (10-60) IU/L Alkaline Phosphatase 61 (42-121) IU/L Troponin I High Sens (2.3-19.7) ng/L Total Protein 5.0 L (6.7-8.2) g/dL Albumin 2.3 L (3.2-5.5) g/dL Globulin 2.7 (2.1-4.2) g/dL Albumin/Globulin Ratio 0.9 L (1.0-2.2) 01/29/23 Range/Units 19:30 WBC (4.8-10.8) x10^3/uL RBC (4.70-6.10) 10^6/uL Hgb (14.0-18.0) g/dL Hct (42.0-52.0) % MCV (80.0-94.0) fL MCH (27.0-31.0) pg MCHC (32.0-36.0) g/dL RDW (12.0-15.0) % Plt Count (130-450) 10^3/uL MPV (7.4-11.4) fL Neut # (Auto) (1.5-6.6) 10^3/uL Lymph # (Auto) (1.5-3.5) 10^3/uL [place] # (Auto) (0.0-1.0) 10^3/uL Eos # (Auto) (0.0-0.7) 10^3/uL Baso # (Auto) (0.0-0.1) 10^3/uL Absolute Nucleated RBC x10^3/uL Nucleated RBC % /100WBC VBG pH (7.31-7.41) Ionized Calcium (1.15-1.33) mmol/L Sodium (135-145) mmol/L Potassium (3.5-5.0) mmol/L Chloride (101-111) mmol/L Carbon Dioxide (21-32) mmol/L Anion Gap (6-13) BUN (6-20) mg/dL Creatinine (0.6-1.2) mg/dL Estimated GFR (MDRD) (>89) Glucose (70-100) mg/dL Calcium (8.5-10.3) mg/dL Magnesium (1.7-2.8) mg/dL Total Bilirubin (0.2-1.0) mg/dL AST (10-42) IU/L ALT (10-60) IU/L Alkaline Phosphatase (42-121) IU/L Troponin I High Sens 16.2 (2.3-19.7) ng/L Total Protein (6.7-8.2) g/dL Albumin (3.2-5.5) g/dL Globulin (2.1-4.2) g/dL Albumin/Globulin Ratio (1.0-2.2) Assessment/Plan - Problem List (1) Heart block Impression: On 08/02 and 08/03 the pt had may episodes of sinus bradycardia, then at least 2 episodes of Mobitz II 2nd degree AVblock. We thought these were caused by getting Haldol and Zyprexa and those meds were stopped. On 08/04 at 1439 he had a 4.5 sec pause which looks like it was asystole during coughing. He also had several dropped QRS complexes again from Mobitz II 2nd degree AVblock. These were likely from the coughs and hiccups causing high vagal tone, while he was mostly sedated on Ativan Today, 08/05, he still has evidence of conduction system disease, with one run of junctional rhythm, rate 50 and at least one episode again of Mobitz II 2nd degree AVblock. These were without coughing and without being overly sedated, although he was resting in bed, no longer agitated. Troponins were cycled and were normal, EKG showed no ischemia and an Echo showed normal LV size and systolic function. A diet was started today, he has had no oral intake since the water at home, that he drank for hiccups. Impression: High vagal tone during coughing and hiccuping was adding to the Zyprexa and Haldol effects on 08/02 and 08/03. But he likely has underlying conduction system disease at his age. Plan: We are avoiding HR-slowing meds. Since LVEF was normal on Echo done 08/03, we need to keep his LV volume adequate, to prevent bradycardia from a Bezold-Jarisch reflex. Therefore, until he is awake to drink adequately, continue iv fluids. All labs were reviewed. Will use 1/2 NS, since his serum Na is climbing to 140 today. Remain in ICU on telemetry If these events do not decrease, after adequate hydration, he will need transfer for management with Cardiology for a pacemaker implant. If he will be [facility], he definitely needs a referral to Cardiology and should avoid all heart-rate slowing meds. I gave paper print-out examples to the daughter at bedside. Discussed with and daughter at bedside today. (2) Altered mental status Impression: Improving He was combative, in 4-point restraints in ED. The initial delerium could have been from his acute hyponatremia, and from having recent general anesthesia that was slow to clear in an octogenarian, and from taking narcotics postop plus benzodiazepines for insomnia. CT head was unremarkable. Despite the serum sodium slowly improving, he developed worsened mental status on 08/03, which we now think was from alcohol withdrawal. Plan: Remain in the ICU Continue with [facility] protocol to give benzodiazepines for alcohol withdrawal (3) Alcohol withdrawal He had a mild AST/ALT elevation at admission, but normal MCV and plt count and INR. The and daughter described that he drinks every night for years, has 1-2 gin and tonics and possibly also a glass of wine. When he is "out with the boys" he may drink more. Because he was hospitalized for 2 days in [place], then became delerious at the 48 hour chucho from his last alcohol intake (which was before the hip surgery), his delirium is consistent with him going through alcohol withdrawal. Today 08/05 he was able to speak coherently but was confused about recent events. He did sit up in a chair but became agitated and tried to climb out and he did start to walk with PT, using a walker. Since he has been too delirious to swallow any meds, or take a diet, he did not get Librium. He has been on a Banana bag iv. Diet was started today Plan: Continue [facility] protocol with IV Ativan given as needed for withdrawal symptoms Advance diet Stop banana bag and give Thiamine po The and daughter were updated today at bedside Qualifiers: Altered mental status type: delirium Qualified Code(s): R41.0 - Disorientation, unspecified (4) Pneumonia Conclusion/Plan: Chest x-ray done for NG tube placement and was read as having an infiltrate. CXR was repeated and reported having a R-sided opacity. He could have had aspiration pneumonia given his obtunded state and the hiccups and the coffee-ground emesis. He received empiric IV amp/sulbactam and IV Flagyl. Blood cultures were done and sputum was also sent for culture. Bld cx are neg to date. Sputum grew out E coli (santos-sensitive) and Strep mitis/oralis. Today he could remember he was getting a "runny nose, sore throat and a cough" after the hip surgery. Plan: We will stop the IV Unasyn and iv Flagyl. Will start oral Bactrim DS twice daily. Will plan a 7-day total course of antibiotics, today is Day #4. (5) Hiccups Improved after Ativan was started Plan: Continue prn Ativan on CIWA protocol (6) S/P Hip surgery (Z98.890) On 08/04 the told us that the orthopedic surgeon had prescribed aspirin 81 mg BID as DVT prophylaxis. Aspirin is not on the patient's reconciled med list, pharmacy must not have been aware. Plan: We will not be ordering any narcotics, since Tylenol alone is controlling the R hip pain Will not add aspirin or Lovenox, due to coffee ground emesis/GI bleed. Continue SCDs for DVT prophylaxis. PT and OT to start today (7) Hyponatremia Conclusion/Plan: Resolved This was initially likely a contributing cause to his altered mental status. It was probably caused from excessive free water intake, that he was drinking because of hiccups. (Today he described drinking "alot of different flavors of Gatorade to cure his hiccups", but the corrected him and said all he drank was water). Serum sodium has improved from 118>> 124>> 128>> 132>> 134>> 140 today Plan: Will stop iv NS, start D5 1/2 NS for hydration. Will now follow BMP daily (8) Coffee ground emesis Conclusion/Plan: Resolved Coffee grounds were documented in ED, likely from a stress ulcer, caused by all his recent medical events After the ng tube was removed, we had to change po Protonix back to iv bid Protonix, since he was delirious, then was sedated. We needed to stop the sucralfate p.o. Plan: Continue empiric Protonix BID, now po again Follow hemoglobin daily Continue DVT prophylaxis with SCDs, not Lovenox or aspirin (9) Acute urinary retention Conclusion/Plan: Resolved Patient has a history of BPH and was on meds for this at home. At presentation, he had urinary retention and a Parada was needed. Parada has been removed. Plan: Cont the meds for BPH, since his BP is no longer low. (10) Medication adverse effect Conclusion/Plan: It is possible that a combination of general anesthesia, narcotics and benzodiazepines in an octogenarian, had an adverse effect and made him confused. But now, the working theory is that he was confused and delerious from H yponatremia and Alcohol withdrawal. Plan: We stopped any narcotics, since Tylenol alone was controlling the R hip pain Cont benzos as needed by CIWA protocol Qualifiers: Encounter type: subsequent encounter (11) Elevated lactic acid level Conclusion/Plan: Resolved With no other signs of infection, unremarkable U/A and white count, surgical site appears clean, no fever, no hypoxia, this was likely demargination from the stress of his recent events We followed lactic acid level to assure it was improving, and it did normalize with iv fluids
[2022-08-05] MEDS ORDERED: DEXTROSE 5%-0.45% NACL 1,000 ML IV SCH (19:00)
[2022-08-05] MEDS: PANTOPRAZOLE 40 MG TABLET PO SCH (20:18)
[2022-08-05] MEDS: SULFAMETH/TRIMETH DS 800/160 MG TABLET PO SCH (20:18)
[2022-08-06 05:36] LABS: CALCIUM, IONIZED 1.1 mmol/L (1.15-1.33); VBG PH 7.399 (7.31-7.41)
[2022-08-06 05:48] LABS: MAGNESIUM 1.8 mg/dL (1.7-2.8); PHOSPHORUS 3.1 mg/dL (2.5-4.6); POTASSIUM 3.9 mmol/L (3.5-5.0)
[2022-08-06] MEDS: SODIUM CHLORIDE FLUSH 0.9% 10 ML SYRINGE IVP SCH ×2 (05:57→09:27)
[2022-08-06] MEDS: CALCIUM CARBONATE CHEW 500 MG TABLET PO SCH ×2 (07:53→11:51)
[2022-08-06] MEDS ORDERED: POTASSIUM CHLORIDE 20 MEQ TABLET PO ONE (08:00)
[2022-08-06] MEDS ORDERED: MAGNESIUM OXIDE 400 MG TABLET PO ONE (08:00)
[2022-08-06] MEDS ORDERED: THIAMINE 100 MG TABLET PO SCH (09:00)
[2022-08-06] MEDS: cefTRIAXone 1 GM in SODIUM CHLORIDE 0.9% MINIBAG 100 ML IV SCH (09:14)
[2022-08-06] MEDS: PANTOPRAZOLE 40 MG TABLET PO SCH (09:26)
[2022-08-06] MEDS: SULFAMETH/TRIMETH DS 800/160 MG TABLET PO SCH (09:26)
--- NOTE | 2022-08-06 11:29 | Discharge Plan ---
Discharge Plan Problem Reviewed?: Yes Disposition: Home, Self Care Condition: Fair Prescriptions: Sulfamethox/Trimeth 800/160 [Bactrim Ds] 1 tab PO BID #6 tab Ferrous Gluconate 324 mg PO DAILY #30 tablet Pantoprazole [Protonix] 40 mg PO DAILY #30 tablet Diet: Cardiac Activity Restrictions: Activity as Tolerated Shower Restrictions: No Driving Restrictions: Yes (no driving) Assistance Devices: Walker Weight Bearing: Full Weight Health Concerns: You presented to our emergency room because you were delirious, confused, and combative. You would had previous hip surgery 2 days before you came to our emergency room and you had hiccups and were drinking quite a bit of water to help the hiccups. We found you to have the following conditions: 1. A distended stomach with water and stomach irritation from gastritis 2. Mild pneumonia 3. A distended bladder from inability to urinate 4. Alcohol withdrawal 5. Electrolyte imbalance with a low sodium, high white cell count, and lactic acidosis. 6. An electrical conduction problem with the electrical wiring in your heart. You have something called a second-degree AV block, Mobitz type II. You also occasionally have something called a junctional bradycardia. All of these mean is that your electricity in your heart sometimes goes haywire, and gives you to slow over heart rate or no heartbeat at all for up to 4 seconds. Treatment consisted of antibiotics for the pneumonia. Different IV fluids to make your sodium better and potassium better. Antibiotics for the pneumonia and distended bladder. Sedation and restraints for the alcohol withdrawal. You are now safe enough to go home but we needed to verify if you are heartbeat needed to be treated with a pacemaker right now. I spoke to [facility] cardiology, Dr. Vikash Wilkerson. They are the instrumental teacher that come here to this hospital. Dr. Wilkerson was honest and said that if you were in his hospital he be doing a pacemaker on you today. But you are not able to be in their hospital, and are anxious to go home. As such we are sending you home to be followed up with cardiology. Plan of Treatment: 1. Follow-up with Dr. Jeremias Barrientos to make sure your blood pressure and heart rate are doing okay. 2. If you have any symptoms with regards to passing out, lightheadedness, or even almost passing out, you need to be brought back to the emergency room. You feel more comfortable going to [facility] because that is where all of his doctors and surgery are. If you can convince the ambulance to take you to [facility] please make sure you tell them that he has a second-degree AV block, Mobitz type II. 3. In speaking to the [facility], cardiology group, they will be calling you at your house to make an appointment with you. I have explained to them what your heart arrhythmia is and they are prepared to see you and probably do a pacemaker in the next couple of weeks. 4. Please follow through on any instructions given to you by your orthopedic surgeon about your hip. 5. Because of alcohol withdrawal, we are unhappy to tell you that you most likely should not be drinking anymore. I am very sorry about that because I am sure it is away of enjoying your day and conversation with your . But going through withdrawal was too dangerous for you. Please do not drink anymore. Please take a vitamin, and a thiamine vitamin on a daily basis for the next month. 6. When you have surgery, you lose a little bit of blood and you become anemic because of it. A normal amount of blood in the man is about 13 g of hemoglobin. You are about 9 g of hemoglobin. I would like you to take an iron tablet a day to help you regain a normal amount of blood. You will do this for about a month. 7. Because we think that some of your problems with your stomach when you came in with gastritis and reflux causing esophagitis, we would like you to take Protonix once a day for 30 days. This will help heal the lining of your stomach and your esophagus from inflammation Care Goals: To get back on your feet. In other words to be completely mobile without any more hip pain. And to stabilize your heart rate. And to remain at home for as long as possible and independently as possible with your . Assessment: Patient is alert, oriented, able to follow instructions. Lucid conversationalist and a wonderful storyteller. He promises to follow through with the instructions above. and daughter at the bedside. No Smoking: If you smoke, Please STOP! Call for help. Follow-up with: Jeremias Barrientos MD [Primary Care Provider] -
[2022-08-06 12:03] VITALS: BP 135/77
--- NOTE | 2022-08-06 12:19 | DISCHARGE SUMMARY ---
"Discharge Summary Admit Date: 08/01/22 Discharge Date: 08/06/22 Discharging Provider: Allison Reed MD Primary Care Provider: Jeremias Barrientos MD Code Status: Attempt Resuscitation Condition at Discharge: Fair Discharge Disposition: 01 Home, Self Care - DIAGNOSES Discharge Diagnoses with Status of Each Condition: 1. Alcohol withdrawal with delirium 2. Hyponatremia 3. Coffee-ground emesis Presumed from esophagitis with gastritis as seen on CT 4. Acute urinary retention 5. Benign prostatic hypertrophy with LUTS 6. Lactic acidosis 7. Aspiration pneumonia 8. Second-degree AV block, Mobitz type II 9. Junctional bradycardia 10. Hiccups 11. Status post recent hip surgery - HPI History of Present Illness: This is an 86-year-old white male who, by report from family is healthy, active, plays golf twice a week. Patient recently underwent hip replacement several days ago which was successful. Since having general anesthesia he has been having alot of hiccups and family reports he is drinking a lot of water. The patient was also taking oxycodone post-op. After the surgery, family noticed is was more confused as well. He complained of not being able to sleep and found 2 tablets of Valium at home, unknown strength, which he took to sleep last night. He awoke this a.m. and was more normal, then again became confused today and family called 911. EMS reported that he was combative and they tried to talk him down but eventually needed to give him Versed en route. Upon arrival to the ER he was delirious and combative. He needed treatment with Haldol and benzodiazepines. He underwent work-up in the ED that included a head CT that showed no acute findings. Labs showed a Lactic Acid of 2.8, normal electrolytes and BUN and creatinine. Mildly elevated white count of 12.6, Hgb of 10.9, AST/ALT 50/35 with normal plts and INR. He had grunting vs hiccups and seemed uncomfortable, thus he underwent abdomen/pelvis CT. The findings were: constipation, diverticulosis without diverticulitis, distended bladder and very distended stomach full of fluid. He had a Parada inserted and 1L was drained. He had an ng tube inserted and stomach was drained, coffee grounds were seen. He became more comfortable. He is now somnolent because of the sedatives that needed to be given for his combativeness. Four-point, non-violent, soft, extremity restraints have been ordered, to protect the equipment. ED provider reached out to me on the Hospitalist team and we discussed a plan of management for him going forward. He will be admitted to inpatient status for delirium, probably from metabolic encephalopathy caused by hyponatremia after recent general anesthesia, slow to clear in an octogenarian. Also, he appears to have an upper GI bleed (possibly a stress ulcer), constipation and acute urinary retention. He will be admitted to the ICU. - Past Medical History Cardiovascular: reports: None Respiratory: reports: None Endocrine/Autoimmune: reports: None GI: reports: None : reports: Benign prostate hypertrophy HEENT: reports: None Psych: reports: None Musculoskeletal: reports: None Derm: reports: None MRSA Hx?: No - Past Surgical History Ortho: reports: Shoulder arthroplasty, Other (hip surg recently) HEENT: reports: Other - CONSULTS | PROCEDURES Procedures: 1. 2 chest x-rays. Slight appearance of right basilar opacity, representing atelectasis versus edema versus airspace disease such as pneumonia 2. Head CT without any acute intracranial findings 3. Abdomen/pelvis CT with a stomach that was distended and filled with fluid. Distal esophageal wall thickening, consider esophagitis. Recent right total hip arthroplasty. Extensive diverticulosis without evidence of diverticulitis. Moderately large fecal debris suggesting constipation. Cholelithiasis and mild changes of chronic cholecystitis. Cardiomegaly with moderate coronary artery calcifications. - HOSPITAL COURSE Hospital Course: He was initially treated his altered mental status in association with possible aspiration pneumonia. He had hyponatremia, electrolyte abnormalities that were addressed. He became quite delirious and at one point required four-point restraints. It was at that point that the history was elicited of a regular 2 drink per night of martinis, sometimes with wine added. We also found out that he has had this before with the previous surgery. As such we diagnosed him as alcohol withdrawal with delirium. He quickly rebounded with benzodiazepines, IV fluids, banana bags. He became more alert, but still had some sundowning at night. He then had a second problem of Mobitz type II on August 02 and that were 8 symptomatic. We thought they were associated with the Haldol and Zyprexa given to him on admission. But as time went on, and the drugs were no longer given to him, he continued to have episodic Mobitz type II. And a one-point develop a junctional bradycardia with a rate of 50. The patient did not have any symptoms at all. When I queried him about any previous symptoms of syncope or lightheadedness or nearly passing out he says no. He may felt occasionally short of breath out of nowhere but no syncope or near syncope. I spoke to Dr. Vikash Wilkerson, [facility], [place] cardiology, who felt that the patient would most likely benefit from a pacemaker. He is not on any rate lowering drugs. It has been days enough out of the Zyprexa and Haldol. If he had been at [place] or at [facility] or in [place] he most likely would have gotten a pacer before [facility]. However, given the difficulty of transferring patients, Dr. Wilkerson states that the patient could probably leave here without having a pacemaker. He has taken the patient's name and phone number and his office will be calling the patient's as soon as possible to get him into their clinic to then be evaluated for pacemaker. I explained this to the patient and the family. If the patient does manage to have syncope, I have instructed them to bring him back to the emergency room here or to see they can convince the ambulance to take him to [place]. They feel more comfortable in [place] and that all of his surgeons are there, and [facility] cardiology sometimes rounds at that hospital. He was felt to have probable esophagitis and gastritis. That resolved with proton pump inhibitors. We would recommend an endoscopy in the outpatient setting. On admission his hemoglobin was 10.9 was 9.6 at the time of discharge. Patient's last hemoglobin in our system was 13.2 in October 2020. Since he had recent hip surgery he may have acute blood loss anemia from the hip replacement which was then worsened by the gastritis. We are recommending that he go home on a vitamin, thiamine, and iron. Aspiration pneumonia was treated with Flagyl and Unasyn. Sputum cultures grew out E. coli and strep mitis. He was changed over to oral Bactrim. He will complete t treatment for that on August 08. He had acute urinary retention resulting in a Parada placement. Patient usually takes Cardura at home. At discharge we discussed pain management. He said that he is taking Tylenol and Aleve. He is not taking oxycodone. I have also asked him not to drink anymore. Exam at discharge had him with a temperature of 36.7. Heart rate 67. Sinus on telemetry. Blood pressure 135/77. Respirations 19. 100% on room air. We did do orthostatics and supine is 121 systolic. Sitting he is 125 systolic. Standing he is 124 systolic. He is a delightful, lively conversationalist. 5 foot 10 inches tall, 77 kg. No facial asymmetry, normal speech. Neck is supple. Lungs are clear to auscultation and percussion. No respiratory distress. He has a regular rate and rhythm. Abdomen is soft, nontender. Normal bowel sounds. Last bowel movement was yesterday and today. He has urgency, frequency, incontinence. He will resumed on his Cardura. The right hip joint is with edema over the scar. There is no redness, heat, or drainage. Wound is closed. He has mild nonpitting edema of the right thigh and right leg. He is alert, oriented, following commands without any focal deficit. Greater than 30 minutes was spent coordinating discharge, discussing discharge plans and appointments, and explaining what the family needed to do in case of emergency. - ALLERGIES Allergies/Adverse Reactions: Allergies Allergy/AdvReac Type Severity Reaction Status Date / Time No Known Drug Allergies Allergy Verified 08/01/22 15:11 - MEDICATIONS Home Medications: Ambulatory Orders Medication Instructions Recorded Confirmed Cetirizine [ZyrTEC] 10 mg PO DAILY PRN 08/02/22 08/02/22 Doxazosin Mesylate [Cardura Xl] 8 mg PO DAILY 08/02/22 08/02/22 Sildenafil Citrate [Viagra] 50 mg PO DAILY PRN 08/02/22 08/02/22 Aspirin EC [Ecotrin] 81 mg PO BID 08/04/22 08/04/22 Ferrous Gluconate 324 mg PO DAILY #30 tablet 08/06/22 Pantoprazole [Protonix] 40 mg PO DAILY #30 tablet 08/06/22 Sulfamethox/Trimeth 800/160 1 tab PO BID #6 tab 08/06/22 [Bactrim Ds] Thiamine [Vitamin B-1] 100 mg PO DAILY tab 08/06/22 - LABS Result Diagrams: 08/05/22 05:31 08/06/22 05:30"
== END 2022-08-06 12:55 | disposition home or self-care (01) | DRG 896 ==
LOC: EDUNIT# → ED 14:03 → ICU 18:12 → EEVIPCON 18:12
PROVIDERS: ADMIT Internal Medicine; ATTEND Specialist
DX: F10.231 Alcohol dependence with withdrawal delirium (principal); R41.0 Disorientation, unspecified; R45.1 Restlessness and agitation; D64.9 Anemia, unspecified; K59.00 Constipation, unspecified; J69.0 Pneumonitis due to inhalation of food and vomit; E87.1 Hypo-osmolality and hyponatremia; N40.0 Benign prostatic hyperplasia without lower urinary tract symptoms; Z20.822 Contact with and (suspected) exposure to COVID-19; E87.20 Acidosis, unspecified; Z87.891 Personal history of nicotine dependence; K20.90 Esophagitis, unspecified without bleeding; K29.70 Gastritis, unspecified, without bleeding; N40.1 Benign prostatic hyperplasia with lower urinary tract symptoms; R33.8 Other retention of urine; I44.1 Atrioventricular block, second degree; R00.1 Bradycardia, unspecified; R06.6 Hiccough; I45.9 Conduction disorder, unspecified; Z96.641 Presence of right artificial hip joint; T50.905A Adverse effect of unspecified drugs, medicaments and biological substances, initial encounter; Z78.1 Physical restraint status
CPT/HCPCS: 36415; 51702; 70450; 71045; 74177; 80048; 80053; 80076; 80306; 81001; 82140; 82330; 83605; 83690; 83735; 84100; 84132; 84295; 84484; 85025; 85610; 87040; 87070; 87077; 87150; 87181; 87205; 87633; 93005; 96361; 96374; 96375; 96376; 97162; 97164; 97166; 99285; A9270; G0480; J0131; J1170; J2060; J3411; Q9967; 80320; 81003; 87086